=== PATIENT | female | born 1970 | race Caucasian/White ===

== ENCOUNTER 2019-05-18 06:14 | Day surgery (SDC) | payer OTHER ==
[2019-05-17 10:50] VITALS: BMI 23.3
[~2019-05-18 06:14] MED LIST: CLINDAMYCIN 900 MG in DEXTROSE 5% IN WATER 50 ML IVPB ONE; DEXAMETHASONE SOD PHOSPHATE 10 MG/ML 1 ML VIAL IV ONE; MIDAZOLAM 2 MG/2 ML VIAL IV PRN; ONDANSETRON 4 MG/2 ML VIAL IVP ONE; SCOPOLAMINE 1.5MG/72HR PATCH TRANSDERM ONE
[2019-05-18 07:24] LABS: Glucose,Whole Blood 95 mg/dL (75-99)
[2019-05-18] MEDS: LACTATED RINGERS 1,000 ML IV SCH ×2 (07:25→08:01)
[2019-05-18] MEDS ORDERED: LIDOCAINE 1% (10MG/ML) FOR IV START INTRADERMA ONE (07:27)
[2019-05-18 07:45] LABS: Albumin 4.1 g/dL (3.5-5.0); Calcium 9.4 mg/dL (8.4-10.2); Potassium 4.4 mmol/L (3.5-5.1); Total Bilirubin 0.3 mg/dL (0.2-1.3); Total Protein 6.6 g/dL (6.3-8.2)
[2019-05-18] MEDS ORDERED: HEPARIN SODIUM,PORCINE 5,000 UNIT/ML 1 ML VIAL ONE (07:55)
[2019-05-18] MEDS ORDERED: SUCCINYLCHOLINE CHLORIDE 100 MG/5 ML SYR IV ONE (07:55)
[2019-05-18] MEDS ORDERED: ePHEDrine SULFATE/0.9% NACL/PF 50 MG/5 ML SYRINGE IV ONE (07:55)
[2019-05-18] MEDS ORDERED: LIDOCAINE 1% INJ 10MG/ML (20 ML MDV) ONE (07:55)
[2019-05-18] MEDS ORDERED: WATER FOR INJECTION, STERILE 10 ML VIAL IV ONE (07:55)
[2019-05-18] MEDS ORDERED: fentaNYL (PF) 50 MCG/ML 2 ML AMP ONE (07:55)
[2019-05-18] MEDS ORDERED: PROPOFOL 10 MG/ML 20 ML VIAL IV ONE (07:55)
[2019-05-18] MEDS ORDERED: LIDOCAINE 1% INJ 10MG/ML (20 ML MDV) SQ ONE (08:28)
[2019-05-18] MEDS ORDERED: HEPARIN SODIUM IRRIGATION ONE (08:52)
[2019-05-18] MEDS ORDERED: SODIUM CHLORIDE 0.9% IRRIGATION ONE (08:52)
[2019-05-18] MEDS ORDERED: ceFAZolin 2 GM, BACITRACIN 100,000 UNIT in SODIUM CHLORIDE 0.9% 500 ML 500 ML IRRIGATION ONE (08:53)
--- NOTE | 2019-05-18 10:08 | P.OP ---
Date of Procedure: 05/18/19 Preoperative Diagnosis: Chronic kidney disease Postoperative Diagnosis: Chronic kidney disease Procedure(s) Performed: Left upper extremity radiocephalic Roxanne fistula Anesthesia: [place] Surgeon: Lico Tran Estimated Blood Loss (ml): 20 Condition: stable Disposition: PACU Indications for Procedure: 49-year-old female with chronic kidney disease in need of hemodialysis presents to the office for creation of left upper extremity chair venous fistula. Description of Procedure: After written informed consent was obtained the patient all risks benefits and competitions were described patient is brought to the operative suite and laid in a supine position with the [ ] arm outstretched on an armboard. The area of the arm was then prepped and draped in usual sterile fashion after appropriate anesthetic was performed per the anesthesiologist. A timeout was performed in n ormal fashion antibiotics were administered prior to incision. A vertical incision was then created just proximal to the wrist and dissection was carried down to the cephalic vein and this was dissected free in a circumferential manner. Proximal and distal control was obtained with vessel loops. Attention was then placed to the artery and the radial artery was then dissected free in a circumferential manner and controlled with vessel loops for the proximal and distal aspect. Patient was then administered heparin. The vein was then ligated at the distal aspect and brought over to the radial artery. Utilizing noon clamps proximal distal control was obtained of the radial artery and arteriotomy was created with 11 blade scalpel and extended with Pott Lmeos scissors. The vein was then spatulated and serial was performed of the vein. Anastomosis was then performed with 7-0 Prolene suture in a running fashion. Control was then released revealing good pulsatile blood flow within the vein with a good palpable thrill noted. Hemostasis was then assured Incisions were then closed in a multilayer fashion. Skin was cleansed and dressings were placed. The patient tolerated the procedure well and was sent to PACU for recovery. Plan - Discharge Summary Discharge Rx Participant: Yes New Discharge Prescriptions: No Action clonazePAM [KlonoPIN] 0.5 mg PO TID PRN PRN Reason: Anxiety Atorvastatin [Lipitor] 20 mg PO HS Amitriptyline HCl 10 mg PO HS Sodium Bicarbonate 650 mg PO TID Folic Acid-Vit B Complex-Vit C [Nephrocaps] 1 mg PO DAILY predniSONE 30 mg PO BID hydrALAZINE HCL [Apresoline] 25 mg PO BID Furosemide [Lasix] 80 mg PO BID Metoprolol Tartrate [Lopressor] 50 mg PO BID Discharge Medication List Amitriptyline HCl 10 mg PO HS 05/17/19 [History] Atorvastatin [Lipitor] 20 mg PO HS 05/17/19 [History] Folic Acid-Vit B Complex-Vit C [Nephrocaps] 1 mg PO DAILY 05/17/19 [History] Furosemide [Lasix] 80 mg PO BID 05/17/19 [History] Metoprolol Tartrate [Lopressor] 50 mg PO BID 05/17/19 [History] Sodium Bicarbonate 650 mg PO TID 05/17/19 [History] clonazePAM [KlonoPIN] 0.5 mg PO TID PRN 05/17/19 [History] hydrALAZINE HCL [Apresoline] 25 mg PO BID 05/17/19 [History] predniSONE 30 mg PO BID 05/17/19 [History] Follow up Appointment(s)/Referral(s): Lico Tran DO [STAFF PHYSICIAN] - 2 Weeks Activity/Diet/Wound Care/Special Instructions: no lifting greater than 15 lbs with left arm. Ok to squeeze ball 10x per hour while awake. Ok to drive 24-48 hours.
[2019-05-18 10:19] VITALS: TEMP 97.1
[2019-05-18] MEDS: HYDROmorphone 0.5 MG/0.5 ML SYRINGE IVP PRN ×2 (10:26→10:32)
[2019-05-18] MEDS ORDERED: FLUID CONTINUATION IV ONE (11:15)
[2019-05-18 11:17] VITALS: RESP 16
[2019-05-18] MEDS ORDERED: HYDROmorphone 0.5 MG/0.5 ML SYRINGE IVP ONE (11:43)
[2019-05-18 13:08] VITALS: BP 127/69; PULSE 71
--- NOTE | 2019-05-18 15:38 | P.ANPRN ---
Procedure Note - Anesthesia - Nerve Block Performed Left Supraclavicular Single Time Out Performed: Yes ([id number]) Date of Procedure: 05/18/19 Procedure Start Time: 07:46 Procedure Stop Time: 07:54 Location of Patient: PreOp Indication: Acute Post-Operative Pain, Requested by Surgeon Specifically requested for management of pain by : Lico Tran Sedation Type: Sedate with meaningful contact maintained Preparation: Sterile Prep Position: Supine Catheter: None Needle Types: Pajunk Needle Gauge: 21 Ultrasound used to visualize needle placement: Yes Ultrasound used to observe medication spread: Yes Injectate: Other (see comment) (Lidocaine 2% with epi [id number] 15cc and Ropi 0.5% 15cc) Blood Aspirated: No Pain Paresthesia on Injection Noted: No Resistance on Injection: Normal Image Stored and Saved: Yes Events: Uneventful and Well Tolerated
== END 2019-05-18 13:15 | disposition home or self-care (01) ==
LOC: OR 06:14
PROVIDERS: ATTEND Surgery
DX: I13.2 Hypertensive heart and chronic kidney disease with heart failure and with stage 5 chronic kidney disease, or end stage renal disease (principal); N18.6 End stage renal disease; I50.9 Heart failure, unspecified; Z99.2 Dependence on renal dialysis; E78.5 Hyperlipidemia, unspecified; Z79.52 Long term (current) use of systemic steroids; Z79.899 Other long term (current) drug therapy; Z87.891 Personal history of nicotine dependence; M32.9 Systemic lupus erythematosus, unspecified; Z98.890 Other specified postprocedural states; Z80.9 Family history of malignant neoplasm, unspecified; Z92.21 Personal history of antineoplastic chemotherapy; J44.9 Chronic obstructive pulmonary disease, unspecified; G43.909 Migraine, unspecified, not intractable, without status migrainosus; Z88.6 Allergy status to analgesic agent; Z88.0 Allergy status to penicillin; Z88.2 Allergy status to sulfonamides; Z91.048 Other nonmedicinal substance allergy status
CPT/HCPCS: 64415; 76942; 80053; 36821; J2250; J1644 ×2; J0690; J2405; J2001; J3010; J0330; J2704; J1170; 64999

== ENCOUNTER 2019-07-20 09:04 | Day surgery (SDC) | payer MEDICARE, OTHER ==
[2019-07-19 13:17] VITALS: BMI 24.1
[~2019-07-20 09:04] MED LIST changes: +HYDROmorphone 0.5 MG/0.5 ML SYRINGE IVP PRN; +LACTATED RINGERS 1,000 ML IV SCH; +LIDOCAINE 1% (10MG/ML) FOR IV START INTRADERMA PRN; -SCOPOLAMINE 1.5MG/72HR PATCH TRANSDERM ONE
[2019-07-20] MEDS ORDERED: fentaNYL (PF) 50 MCG/ML 2 ML AMP IV ONE (09:34)
[2019-07-20 09:45] LABS: Glucose,Whole Blood 105 mg/dL (75-99)
[2019-07-20] MEDS ORDERED: SCOPOLAMINE 1.5MG/72HR PATCH TRANSDERM ONE (09:48)
[2019-07-20 09:52] VITALS: RESP 16; TEMP 97
[2019-07-20 10:01] LABS: Basophils % (A) 0 %; Eosinophils # (A) 0.1 k/uL (0-0.7); Eosinophils % (A) 1 %; HCT 29.3 % (34.0-46.0); HGB 9.8 gm/dL (11.4-16.0); Lymphocytes # (A) 0.5 k/uL (1.0-4.8); Lymphocytes % (A) 6 %; MCH 32.5 pg (25.0-35.0); MCHC 33.5 g/dL (31.0-37.0); MCV 97.2 fL (80.0-100.0); Mean Platelet Volume 7.2; Monocytes # (A) 0.5 k/uL (0-1.0); Monocytes % (A) 6 %; Neutrophils % (A) 86 %; RBC 3.02 m/uL (3.80-5.40); RDW 14.5 % (11.5-15.5); WBC 8.2 k/uL (3.8-10.6)
[2019-07-20 10:07] LABS: Calcium 9.3 mg/dL (8.4-10.2); Potassium 4.3 mmol/L (3.5-5.1)
[2019-07-20] MEDS ORDERED: MIDAZOLAM 2 MG/2 ML VIAL ONE (10:09)
[2019-07-20] MEDS ORDERED: fentaNYL (PF) 50 MCG/ML 2 ML AMP ONE (10:09)
[2019-07-20] MEDS ORDERED: PROTAMINE SULFATE 10 MG/ML 5 ML VIAL IV ONE (10:09)
[2019-07-20] MEDS ORDERED: HEPARIN SODIUM,PORCINE 5,000 UNIT/ML 1 ML VIAL ONE (10:09)
[2019-07-20] MEDS ORDERED: PROPOFOL 10 MG/ML 20 ML VIAL IV ONE (10:09)
[2019-07-20] MEDS ORDERED: ROPIVACAINE 5 MG/ML 30 ML VIAL ONE (10:09)
[2019-07-20 10:13] LABS: Platelet Count 87 k/uL (150-450)
[2019-07-20] MEDS ORDERED: SODIUM CHLORIDE 0.9% 500 ML 500 ML with HEPARIN SODIUM,PORCINE 2,000 UNIT IV ONE ×2 (10:15)
[2019-07-20] MEDS ORDERED: ceFAZolin 2 GM in SODIUM CHLORIDE 0.9% 500 ML 500 ML IRRIGATION ONE (10:15)
[2019-07-20] MEDS ORDERED: LIDOCAINE 1% INJ 10MG/ML (20 ML MDV) SQ ONE ×2 (10:33)
[2019-07-20] MEDS ORDERED: GELATIN SPONGE,ABSORB (SMALL) 1 EACH SPONGE TOPICAL ONE ×2 (11:29)
[2019-07-20] MEDS ORDERED: THROMBIN (BOVINE) 5,000 UNIT VIAL TOPICAL ONE ×2 (11:30→12:10)
[2019-07-20] MEDS ORDERED: GELATIN SPONGE,ABSORB (LARGE) 1 EACH SPONGE TOPICAL ONE (12:10)
[2019-07-20] MEDS ORDERED: DESMOPRESSIN ACETATE 13 MCG in SODIUM CHLORIDE 0.9% 50 ML IVPB ONE (12:30)
[2019-07-20 12:56] VITALS: PULSE 88
--- NOTE | 2019-07-20 12:56 | P.OP ---
Date of Procedure: 07/20/19 Preoperative Diagnosis: End-stage renal disease on hemodialysis Postoperative Diagnosis: End-stage renal disease on hemodialysis Procedure(s) Performed: Left upper extremity loop AV graft Implants: Roland propatent 4-7 mm graft Anesthesia: MAC, regional Surgeon: Lico Tran Estimated Blood Loss (ml): 100 Pathology: none sent Condition: stable Disposition: PACU Indications for Procedure: 49-year-old female with history of end-stage renal disease on hemodialysis he right-sided tunneled Bahman catheter with history of previous left upper extremity Roxanne fistula creation presents to the hospital for loop AV graft creation on the left upper extremity secondary to previous Roxanne fistula occlusion. Patient has had no issues with her Bahman catheter and has been getting hemodialysis without complications. She does have low platelet count previously and recheck prior to surgery demonstrated platelets greater than 80. She underwent ultrasound of the left upper extremity to determine if a fistula versus graft should be performed. Due to her age was determined that a loop graft in the forearm would be best suited allowing more options in the future. She presents today for loop graft creation. Description of Procedure: After written informed consent was obtained the patient all risks benefits and competitions were described patient is brought to the operative suite and laid in a supine position with the left arm outstretched on an armboard. The area of the arm was then prepped and draped in usual sterile fashion after appropriate anesthetic was performed per the anesthesiologist. A timeout was performed in normal fashion antibiotics were administered prior to incision. A transverse incision was then created just distal to the elbow and dissection was carried down to the antecubital vein and this was dissected free in a circumferential manner. Proximal and distal control was obtained with vessel loops. Attention was then placed to the artery and the brachial artery was then dissected free in a circumferential manner and controlled with vessel loops for the proximal and distal aspect. A tunnel was then created in a loop fashion with a counterincision made in the forearm and a 4-7 mm Roland propatent graft was tunneled in a loop fashion. Patient was then administered heparin. Arterial anastomosis was then performed after arteriotomy was created in the brachial artery and extended with Pott Lemos scissors. We 4 mm aspect of the graft was then spatulated in normal fashion and anastomosis was created with 6-0 Prolene suture in a running fashion. Control was then released into the graft revealing good pulsatile blood flow. Distal control of the artery was then released. Assessment of the radial artery demonstrated good pulse. The anastomosis was then performed. Venotomy was created with 11 blade scalpel and extended with Pott Lemos scissors. A 7 mm aspect of the graft was then spatulated in normal fashion and anastomosis was created with 6-0 Prolene suture in a running fashion. Prior to last sutures being placed control was released revealing good backbleeding from the vein. The graft was flushed with heparin saline. Control was then released revealing good pulsatile blood flow within the vein with a good palpable thrill noted. Hemostasis was then assured with Gelfoam, thrombin, Surgicel. Incisions were then closed in a multilayer fashion. Skin was cleansed and dressings were placed. The patient tolerated the procedure well and was sent to PACU for recovery. Plan - Discharge Summary Discharge Rx Participant: Yes New Discharge Prescriptions: No Action clonazePAM [KlonoPIN] 0.5 mg PO TID PRN PRN Reason: Anxiety Atorvastatin [Lipitor] 20 mg PO HS RX: Sodium Bicarbonate 650 mg PO TID Folic Acid-Vit B Complex-Vit C [Nephrocaps] 0.8 mg PO MOWEFR RX: predniSONE 30 mg PO DAILY hydrALAZINE HCL [Apresoline] 50 mg PO BID Furosemide [Lasix] 80 mg PO BID Metoprolol Tartrate [Lopressor] 50 mg PO BID amLODIPine [Norvasc] 5 mg PO DAILY levOCARNitine [Levocarnitine] 330 mg PO DAILY Discharge Medication List Atorvastatin [Lipitor] 20 mg PO HS 05/17/19 [History] Folic Acid-Vit B Complex-Vit C [Nephrocaps] 0.8 mg PO MOWEFR 05/17/19 [History] Furosemide [Lasix] 80 mg PO BID 05/17/19 [History] Metoprolol Tartrate [Lopressor] 50 mg PO BID 05/17/19 [History] Sodium Bicarbonate 650 mg PO TID 05/17/19 [History] clonazePAM [KlonoPIN] 0.5 mg PO TID PRN 05/17/19 [History] hydrALAZINE HCL [Apresoline] 50 mg PO BID 05/17/19 [History] predniSONE 30 mg PO DAILY 05/17/19 [History] amLODIPine [Norvasc] 5 mg PO DAILY 07/19/19 [History] levOCARNitine [Levocarnitine] 330 mg PO DAILY 07/19/19 [History] HYDROcodone/APAP 5-325MG [[place] 5-325] 1 tab PO Q4HR 07/20/19 [History] Follow up Appointment(s)/Referral(s): Lico Tran DO [STAFF PHYSICIAN] - 2 Weeks Discharge Disposition: HOME SELF-CARE
[2019-07-20 13:04] VITALS: BP 159/89
[2019-07-20] MEDS ORDERED: HYDROcodone/APAP 5-325MG 1 EACH TAB PO ONE (13:10)
[2019-07-20] MEDS ORDERED: HYDROmorphone 1 MG/ML 1 ML SYRINGE IVP ONE (13:34)
--- NOTE | 2019-07-20 18:15 | P.ANPRN ---
Procedure Note - Anesthesia - Nerve Block Performed Left Supraclavicular Single Time Out Performed: Yes Date of Procedure: 07/20/19 Procedure Start Time: 09:32 Procedure Stop Time: :43 Location of Patient: PreOp Indication: Acute Post-Operative Pain, Requested by Surgeon Specifically requested for management of pain by DrGanga: Lico Tran Sedation Type: Sedate with meaningful contact maintained Preparation: Sterile Prep Position: Supine Catheter: None Needle Types: Pajunk Needle Gauge: 21 Ultrasound used to visualize needle placement: Yes Ultrasound used to observe medication spread: Yes Injectate: 0.5% Ropivacaine (see comment for volume) Adjunct: Epinephrine (see comment for dilution ratio) Blood Aspirated: No Pain Paresthesia on Injection Noted: No Resistance on Injection: Normal Image Stored and Saved: Yes Events: Uneventful and Well Tolerated (0.5% ropivacaine 10cc 2% lidocaine with epi 5cc)
== END 2019-07-20 14:05 | disposition home or self-care (01) ==
LOC: OR 09:04
PROVIDERS: ATTEND Surgery
DX: I12.0 Hypertensive chronic kidney disease with stage 5 chronic kidney disease or end stage renal disease (principal); N18.6 End stage renal disease; M32.9 Systemic lupus erythematosus, unspecified; E78.5 Hyperlipidemia, unspecified; Z11.59 Encounter for screening for other viral diseases; F41.9 Anxiety disorder, unspecified; D64.9 Anemia, unspecified; Z79.52 Long term (current) use of systemic steroids; Z79.899 Other long term (current) drug therapy; Z87.891 Personal history of nicotine dependence; Z98.891 History of uterine scar from previous surgery; Z88.0 Allergy status to penicillin; Z88.2 Allergy status to sulfonamides; Z88.6 Allergy status to analgesic agent; Z91.041 Radiographic dye allergy status
CPT/HCPCS: 36830; 64415; 76942; 80048; 85025; 87635; L8670; J2250; J2720; J1644; J1100; J0690; J2405; J2001; J3010; J1170; J2795; J2704; 64418

== ENCOUNTER → 2019-12-06 | Outpatient (CLI) | payer MEDICARE, OTHER ==
[2019-12-06 15:22] LABS: Basophils % (A) 1 %; Eosinophils # (A) 0.5 k/uL (0-0.7); Eosinophils % (A) 15 %; HCT 32.4 % (34.0-46.0); HGB 10.4 gm/dL (11.4-16.0); Lymphocytes # (A) 0.5 k/uL (1.0-4.8); Lymphocytes % (A) 15 %; MCH 32.7 pg (25.0-35.0); MCHC 32.2 g/dL (31.0-37.0); MCV 101.6 fL (80.0-100.0); Macrocytosis Slight; Mean Platelet Volume 6.7; Monocytes # (A) 0.2 k/uL (0-1.0); Monocytes % (A) 7 %; Neutrophils % (A) 61 %; Platelet Count 212 k/uL (150-450); RBC 3.19 m/uL (3.80-5.40); RDW 15.4 % (11.5-15.5); WBC 3.3 k/uL (3.8-10.6)
[2019-12-06 15:23] LABS: Potassium 3.8 mmol/L (3.5-5.1)
== END | disposition home or self-care (01) ==
LOC: LABPAT 14:27
PROVIDERS: ATTEND Surgery
DX: Z01.818 Encounter for other preprocedural examination (principal); N18.6 End stage renal disease
CPT/HCPCS: 36415; 80051; 82565; 84520; 85025

== ENCOUNTER → 2019-12-07 | Day surgery (SDC) | payer MEDICARE, OTHER ==
[2019-12-06 11:45] VITALS: BMI 20.2
[~2019-12-07] MED LIST changes: -CLINDAMYCIN 900 MG in DEXTROSE 5% IN WATER 50 ML IVPB ONE; -DEXAMETHASONE SOD PHOSPHATE 10 MG/ML 1 ML VIAL IV ONE; -HYDROmorphone 0.5 MG/0.5 ML SYRINGE IVP PRN; +IOPAMIDOL-250 50ML BTL INTRAARTER ONE; -LACTATED RINGERS 1,000 ML IV SCH; -LIDOCAINE 1% (10MG/ML) FOR IV START INTRADERMA PRN; +LIDOCAINE 1% INJ 10MG/ML (20 ML MDV) SQ ONE; +MIDAZOLAM 2 MG/2 ML VIAL IV ONE; -MIDAZOLAM 2 MG/2 ML VIAL IV PRN; -ONDANSETRON 4 MG/2 ML VIAL IVP ONE; +SODIUM CHLORIDE 0.9% 1,000 ML IV ONE; +fentaNYL (PF) 50 MCG/ML 2 ML AMP IV ONE; +methylPREDNISolone SOD SUCCI 125 MG/2 ML VIAL IV STA; +methylPREDNISolone SOD SUCCI 125 MG/2 ML VIAL ONE
[2019-12-07 08:31] VITALS: TEMP 97.4
[2019-12-07 09:23] VITALS: RESP 16
--- NOTE | 2019-12-07 09:31 | P.OP ---
Date of Procedure: 12/07/19 Preoperative Diagnosis: Left upper extremity dysfunctional arteriovenous graft Postoperative Diagnosis: Same, No evidence of inflow or outflow stenosis or extravasation Procedure(s) Performed: Left upper extremity fistulagram Anesthesia: local (with conscious sedation x 17 mins) Surgeon: Lico Tran Estimated Blood Loss (ml): 5 Pathology: none sent Condition: stable Disposition: same day Indications for Procedure: 49 year old female with history of ESRD on hemodialysis via left upper extremity loop graft presents secondary to complaints of pain and swelling with dialysis on the inner curve of the graft. She states she also bleeds a lot after dialysis and takes extended time for hemostasis. Description of Procedure: The patient was brought to the cath lab nurse and laid in a supine position with left arm on arm board. Local anesthetic was infused overlying the graft and utilizing a micro access needle the graft was accessed. A 4 german sheath was then placed and fistulagram was obtained demonstrating no evidence of stenosis of the outflow or inflow. A central venous venogram was obtained without evidence of stenosis. All catheters and wires were removed and pressure was held for hemostasis. The area was then cleansed and dressings were placed. Plan - Discharge Summary Discharge Rx Participant: No New Discharge Prescriptions: No Action clonazePAM [KlonoPIN] 0.5 mg PO TID PRN PRN Reason: Anxiety Atorvastatin [Lipitor] 20 mg PO QAM Furosemide [Lasix] 40 mg PO DAILY Sodium Bicarb Tab 850 mg PO BID amLODIPine [Norvasc] 10 mg PO DAILY cloNIDine HCL [Catapres] 0.1 mg PO TID Folic Acid-Vit B Complex-Vit C [Nephrocaps] 1 mg PO SUTUTHSA hydrALAZINE HCL [Apresoline] 100 mg PO TID Labetalol HCl 100 mg PO BID rOPINIRole HCL [Requip] 0.25 mg PO BID Sevelamer [Renvela] 800 mg PO DIRECTED PRN PRN Reason: meals or snacks Discharge Medication List Atorvastatin [Lipitor] 20 mg PO QAM 05/17/19 [History] Furosemide [Lasix] 40 mg PO DAILY 05/17/19 [History] clonazePAM [KlonoPIN] 0.5 mg PO TID PRN 05/17/19 [History] Folic Acid-Vit B Complex-Vit C [Nephrocaps] 1 mg PO SUTUTHSA 12/06/19 [History] Labetalol HCl 100 mg PO BID 12/06/19 [History] Sevelamer [Renvela] 800 mg PO DIRECTED PRN 12/06/19 [History] Sodium Bicarb Tab 850 mg PO BID 12/06/19 [History] amLODIPine [Norvasc] 10 mg PO DAILY 12/06/19 [History] cloNIDine HCL [Catapres] 0.1 mg PO TID 12/06/19 [History] hydrALAZINE HCL [Apresoline] 100 mg PO TID 12/06/19 [History] rOPINIRole HCL [Requip] 0.25 mg PO BID 12/06/19 [History]
[2019-12-07 10:26] VITALS: BP 140/69; PULSE 90
--- NOTE | 2019-12-07 10:34 | IR ---
EXAMINATION TYPE: IR angio upper extremity LT DATE OF EXAM: 12/07/2019 COMPARISON: NONE HISTORY: Fluoroscopy time. Fluoroscopy was provided to the referring clinician.
== END ==
LOC: CATHCVL 07:54
PROVIDERS: ATTEND Surgery
DX: T82.848A Pain due to vascular prosthetic devices, implants and grafts, initial encounter (principal); T82.7XXA Infection and inflammatory reaction due to other cardiac and vascular devices, implants and grafts, initial encounter; Z79.52 Long term (current) use of systemic steroids; Z79.899 Other long term (current) drug therapy; I12.0 Hypertensive chronic kidney disease with stage 5 chronic kidney disease or end stage renal disease; N18.6 End stage renal disease; Z99.2 Dependence on renal dialysis; M32.9 Systemic lupus erythematosus, unspecified; Z80.9 Family history of malignant neoplasm, unspecified; Z87.891 Personal history of nicotine dependence
CPT/HCPCS: 76080; C1769 ×2; J2250; J2930; J2001; J3010; Q9966

== ENCOUNTER 2020-05-18 11:06 | Day surgery (SDC) | payer MEDICARE, OTHER ==
[2020-05-16 15:31] VITALS: BMI 19.9
[~2020-05-18 11:06] MED LIST changes: +ACETAMINOPHEN TAB 500 MG TAB PO PRN; +DEXAMETHASONE SOD PHOSPHATE 4 MG/ML 1 ML VIAL IV ONE; +HEPARIN SODIUM,PORCINE 5,000 UNIT/ML 1 ML VIAL SQ PRN; +HYDROmorphone 0.5 MG/0.5 ML SYRINGE IVP PRN; -IOPAMIDOL-250 50ML BTL INTRAARTER ONE; +LACTATED RINGERS 1,000 ML IV SCH; -LIDOCAINE 1% INJ 10MG/ML (20 ML MDV) SQ ONE; -MIDAZOLAM 2 MG/2 ML VIAL IV ONE; +ONDANSETRON 4 MG/2 ML VIAL IVP ONE; -SODIUM CHLORIDE 0.9% 1,000 ML IV ONE; -fentaNYL (PF) 50 MCG/ML 2 ML AMP IV ONE; -methylPREDNISolone SOD SUCCI 125 MG/2 ML VIAL IV STA; -methylPREDNISolone SOD SUCCI 125 MG/2 ML VIAL ONE
[2020-05-18 11:46] VITALS: RESP 16
[2020-05-18] MEDS ORDERED: LIDOCAINE 1% (10MG/ML) FOR IV START INTRADERMA ONE (11:53)
[2020-05-18 12:21] LABS: Basophils % (A) 1 %; Eosinophils # (A) 0.2 k/uL (0-0.7); Eosinophils % (A) 4 %; HCT 36.3 % (34.0-46.0); HGB 12.4 gm/dL (11.4-16.0); Lymphocytes # (A) 0.7 k/uL (1.0-4.8); Lymphocytes % (A) 17 %; MCHC 34.3 g/dL (31.0-37.0); MCV 102.2 fL (80.0-100.0); Macrocytosis Slight; Mean Platelet Volume 7.1; Monocytes # (A) 0.2 k/uL (0-1.0); Monocytes % (A) 6 %; Neutrophils % (A) 71 %; Platelet Count 187 k/uL (150-450); RBC 3.55 m/uL (3.80-5.40); WBC 4.3 k/uL (3.8-10.6)
[2020-05-18] MEDS ORDERED: LIDOCAINE 1% INJ 10MG/ML (20 ML MDV) ONE (12:29)
[2020-05-18] MEDS ORDERED: PHENYLEPHRINE-0.9% NACL SYG 1,000 MCG/10 ML SYRINGE ONE (12:29)
[2020-05-18] MEDS ORDERED: PROPOFOL 10 MG/ML 20 ML VIAL IV ONE (12:29)
[2020-05-18] MEDS ORDERED: fentaNYL (PF) 50 MCG/ML 2 ML AMP ONE (12:29)
[2020-05-18 12:31] LABS: Calcium 9.6 mg/dL (8.4-10.2); Potassium 5.2 mmol/L (3.5-5.1)
[2020-05-18] MEDS ORDERED: MIDAZOLAM 2 MG/2 ML VIAL IVP ONE ×2 (12:31→12:33)
[2020-05-18] MEDS ORDERED: FAMOTIDINE 20 MG/2 ML VIAL IV ONE (12:31)
[2020-05-18] MEDS ORDERED: SODIUM CHLORIDE 0.9% 50 ML with CLINDAMYCIN 600 MG IV ONE ×2 (12:35)
[2020-05-18] MEDS ORDERED: MINERAL OIL 1 APPLIC/ML OIL TOPICAL ONE (12:40)
[2020-05-18] MEDS ORDERED: BUPIVACAINE (PF) 0.25% 30 ML VIAL SQ ONE ×2 (12:40)
[2020-05-18] MEDS ORDERED: NALOXONE 0.4 MG/ML 1 ML VIAL IV PRN (13:51)
[2020-05-18] MEDS ORDERED: traMADol 50 MG TAB PO PRN (13:51)
--- NOTE | 2020-05-18 13:54 | P.OP ---
Date of Procedure: 05/18/20 Procedure(s) Performed: PREOPERATIVE DIAGNOSIS: Renal failure POSTOPERATIVE DIAGNOSIS: Same PROCEDURE: Peritoneal dialysis catheter insertion SURGEON: Mily EBL: Minimal ANESTHESIA: Sedation plus local COMPLICATIONS: None OPERATIVE PROCEDURE: The patient was placed in the operative table in the supine position. His abdomen was prepped and draped in usual sterile fashion. A small vertical incision was made in the left periumbilical location. Dissection down through the subcutaneous tissues took place using electrocautery. The anterior rectus was divided vertically using the scalpel. The rectus was bluntly. The posterior rectus was visualized. An 0 Vicryl pursestring was placed. A small opening in the posterior rectus fascia and peritoneum took place using a Metzenbaum scissors. There were no adhesions to the suture that was placed. The pigtail catheter was advanced into the pelvis over a stylette. No resistance was met. The inner cuff was secured to the fascia using the 0 Vicryl pursestring that was placed. The catheter was tunneled to an exit site in the left lateral lower quadrant. The catheter was connected to the 1 L bag of saline and approximated 800 mL of saline was easily introduced into the peritoneal cavity. The fluid was then allowed to evacuate. The majority of the fluid was returned. The anterior rectus fascia was then reapproximated using a running 0 Vicryl stitch. The subcutaneous tissues reprepped using 3-0 Vicryl sutures and the skin using 4-0 Monocryl sutures. The outpatient dialysis adapter was applied to the end of the catheter. A sterile dressings then applied after skin glue was placed over the incision. DISPOSITION: Stable to recovery room
[2020-05-18 13:55] VITALS: TEMP 97.6
[2020-05-18 15:42] VITALS: BP 112/74; PULSE 74
== END 2020-05-18 15:42 | disposition home or self-care (01) ==
LOC: OR 11:06
PROVIDERS: ATTEND Surgery
DX: N19 Unspecified kidney failure (principal); I10 Essential (primary) hypertension; E78.00 Pure hypercholesterolemia, unspecified; Z79.899 Other long term (current) drug therapy; Z88.6 Allergy status to analgesic agent; Z88.0 Allergy status to penicillin; Z88.2 Allergy status to sulfonamides; Z91.041 Radiographic dye allergy status; Z83.3 Family history of diabetes mellitus; Z80.9 Family history of malignant neoplasm, unspecified; Z82.49 Family history of ischemic heart disease and other diseases of the circulatory system
CPT/HCPCS: 49418; 80048; 85025; C1752; J2250; J1644; J1100; J2405; J2001; J3010; J2370; J2704; J1170

== ENCOUNTER 2020-08-11 07:48 | Day surgery (SDC) | payer MEDICARE, OTHER ==
[2020-08-10 08:51] VITALS: BMI 20.4
[~2020-08-11 07:48] MED LIST changes: +CLINDAMYCIN 900 MG in DEXTROSE 5% IN WATER 50 ML IVPB PRN; -DEXAMETHASONE SOD PHOSPHATE 4 MG/ML 1 ML VIAL IV ONE; -HEPARIN SODIUM,PORCINE 5,000 UNIT/ML 1 ML VIAL SQ PRN; +HEPARIN SODIUM,PORCINE/PF 5,000 UNIT/0.5 ML SYRINGE SQ PRN; -HYDROmorphone 0.5 MG/0.5 ML SYRINGE IVP PRN; -LACTATED RINGERS 1,000 ML IV SCH; -ONDANSETRON 4 MG/2 ML VIAL IVP ONE
[2020-08-11] MEDS ORDERED: ONDANSETRON 4 MG/2 ML VIAL IVP ONE (07:53)
[2020-08-11] MEDS ORDERED: DEXAMETHASONE SOD PHOSPHATE 4 MG/ML 1 ML VIAL IV ONE (07:53)
[2020-08-11] MEDS ORDERED: HYDROmorphone 0.5 MG/0.5 ML SYRINGE IVP PRN (07:53)
[2020-08-11] MEDS ORDERED: SCOPOLAMINE 1.5MG/72HR PATCH TRANSDERM ONE (07:53)
[2020-08-11] MEDS ORDERED: MIDAZOLAM 2 MG/2 ML VIAL IV PRN (07:53)
[2020-08-11] MEDS ORDERED: LACTATED RINGERS 1,000 ML IV SCH (07:53)
[2020-08-11] MEDS ORDERED: LIDOCAINE 1% (10MG/ML) FOR IV START INTRADERMA ONE (08:30)
[2020-08-11] MEDS ORDERED: SODIUM CHLORIDE 0.9% 1,000 ML IV ONE (08:32)
--- NOTE | 2020-08-11 08:43 | P.GSHP ---
History of Present Illness H&P Date: 08/11/20 Chief Complaint: Renal failure Patient here today for peritoneal dialysis catheter removal. Catheter was placed in May. Catheter has been functioning appropriately however she has not been able to clear her fluids and has gradually had increased fluid retention. She was placed back on hemodialysis for that reason and she is here today for dialysis catheter removal. She has no pain at the catheter site. No peritonitis. Past Medical History Past Medical History: Asthma, Heart Failure, COPD, Dialysis, Fibromyalgia, GERD/Reflux, Hypertension, Renal Disease, Rheumatoid Arthritis (RA), Skin Disorder Additional Past Medical History / Comment(s): migraines, anemia, lupus, stage 5 renal failure, hemodialysis MOWEFR, vasculitis autoimmune disorder, glaucoma, hx ulcer, IBS, SOB with activity, restless leg, psoriasis History of Any Multi-Drug Resistant Organisms: None Reported Past Surgical History: Section Additional Past Surgical History / Comment(s): "port in chest"/removed, C/S x 3, cold knife conization, fistula left arm for hemodialysis, peritoneal dialysis catheter Past Anesthesia/Blood Transfusion Reactions: Family History of Problems w/ Anesthesia, Motion Sickness, Postoperative Nausea & Vomiting (PONV) Additional Past Anesthesia/Blood Transfusion Reaction / Comment(s): slow to wake up after last procedure, mother PONV Smoking Status: Former smoker - Past Family History Mother Family Medical History: Cancer Father Family Medical History: Cancer Medications and Allergies Home Medications Medication Instructions Recorded Confirmed Type Folic Acid-Vit B Complex-Vit C 1 mg PO SUTUTHSA 12/06/19 08/11/20 History [Nephrocaps] amLODIPine [Norvasc] 10 mg PO DAILY 12/06/19 08/11/20 History hydrALAZINE HCL [Apresoline] 100 mg PO TID 12/06/19 08/11/20 History Albuterol Inhaler [Ventolin Hfa 2 puff INHALATION BID PRN 08/10/20 08/11/20 History Inhaler] Carvedilol [Coreg] 25 mg PO BID 08/10/20 08/11/20 History Cinacalcet HCl [Sensipar] 60 mg PO DAILY 08/10/20 08/11/20 History Hydroxychloroquine Sulfate 200 mg PO BID 08/10/20 08/11/20 History [Plaquenil] Isosorbide Dinitrate 5 mg PO TID 08/10/20 08/11/20 History Sodium Bicarbonate 650 mg PO TID 08/10/20 08/11/20 History mycophenolate mofetiL [Cellcept] 500 mg PO BID 08/10/20 08/11/20 History rOPINIRole HCL [Requip] 0.25 mg PO TID 08/10/20 08/11/20 History Allergies Allergy/AdvReac Type Severity Reaction Status Date / Time Iodinated Contrast Media Allergy Severe stopped Verified 08/11/20 08:17 breathing aspirin Allergy Swelling/hi Verified 08/11/20 08:17 ves Penicillins Allergy Dyspnea Verified 08/11/20 08:17 sulfamethoxazole Allergy Dyspnea Verified 08/11/20 08:17 [From Bactrim] trimethoprim [From Bactrim] Allergy Dyspnea Verified 08/11/20 08:17 Surgical - Exam Vital Signs Temp Pulse Resp BP Pulse Ox 97.7 F 80 16 112/72 95 08/11/20 08:08 08/11/20 08:08 08/11/20 08:08 08/11/20 08:08 08/11/20 08:08 Physical exam: General: Well-developed, somewhat malnourished HEENT: Normocephalic, sclerae nonicteric Abdomen: Peritoneal catheter in place, incision clean and dry Extremities: Mild edema Neuro: Alert and oriented Assessment and Plan (1) Renal failure Narrative/Plan: Will proceed with peritoneal dialysis catheter removal at this time. Current Visit: Yes Status: Acute Code(s): N19 - UNSPECIFIED KIDNEY FAILURE SNOMED Code(s): 48246648
[2020-08-11] MEDS ORDERED: LIDOCAINE 1% INJ 10MG/ML (20 ML MDV) ONE (09:02)
[2020-08-11] MEDS ORDERED: PHENYLEPHRINE-0.9% NACL SYG 1,000 MCG/10 ML SYRINGE ONE (09:02)
[2020-08-11] MEDS ORDERED: PROPOFOL 10 MG/ML 20 ML VIAL IV ONE (09:02)
[2020-08-11] MEDS ORDERED: fentaNYL (PF) 50 MCG/ML 2 ML AMP ONE (09:02)
[2020-08-11] MEDS ORDERED: BUPIVACAIN-EPI 0.5%-1:200,000 30 ML VIAL SQ ONE ×2 (09:05)
[2020-08-11 09:12] LABS: Calcium 9.2 mg/dL (8.4-10.2)
[2020-08-11 09:51] VITALS: TEMP 97.2
[2020-08-11 12:38] VITALS: RESP 16
[2020-08-11 13:18] VITALS: BP 118/65; PULSE 75
--- NOTE | 2020-08-16 20:07 | P.OP ---
Date of Procedure: 08/16/20 Procedure(s) Performed: PREOPERATIVE DIAGNOSIS: Renal failure POSTOPERATIVE DIAGNOSIS: Same PROCEDURE: PD cath removal SURGEON: Mily EBL: 2 mL ANESTHESIA: Sedation and local COMPLICATIONS: None OPERATIVE PROCEDURE: Patient was placed in the supine position. The abdomen was prepped and draped in usual sterile fashion. The previous paramedian incision was re-incised after localizing the skin. The subcutaneous tissues were divided using electrocautery. Blunt dissection around the cuff that was present at the fascia and peritoneum took place. The cuff was fully mobilized. The catheter was removed from the perineal cavity. The outer cuff was dissected from the saphenous fascia using electrocautery. The catheter was cut on the other side of that cuff and the catheter was removed. The fascial defect was closed using a single [id number] 0 Vicryl stitch. The subcutaneous tissues were closed using 3-0 Vicryl sutures and the skin using 4-0 Monocryl sutures. Skin glue and sterile dressings were applied. DISPOSITION: Stable to recovery room
== END 2020-08-11 13:24 | disposition home or self-care (01) ==
LOC: OR 07:48
PROVIDERS: ATTEND Surgery
DX: Z49.02 Encounter for fitting and adjustment of peritoneal dialysis catheter (principal); I13.2 Hypertensive heart and chronic kidney disease with heart failure and with stage 5 chronic kidney disease, or end stage renal disease; N18.5 Chronic kidney disease, stage 5; I50.9 Heart failure, unspecified; E78.00 Pure hypercholesterolemia, unspecified; F17.200 Nicotine dependence, unspecified, uncomplicated; Z98.891 History of uterine scar from previous surgery; J45.909 Unspecified asthma, uncomplicated; J44.9 Chronic obstructive pulmonary disease, unspecified; M79.7 Fibromyalgia; K58.9 Irritable bowel syndrome, unspecified; K21.9 Gastro-esophageal reflux disease without esophagitis; M06.9 Rheumatoid arthritis, unspecified; G43.909 Migraine, unspecified, not intractable, without status migrainosus; M32.14 Glomerular disease in systemic lupus erythematosus; D89.89 Other specified disorders involving the immune mechanism, not elsewhere classified; Z98.890 Other specified postprocedural states; Z82.49 Family history of ischemic heart disease and other diseases of the circulatory system; Z83.3 Family history of diabetes mellitus; Z80.9 Family history of malignant neoplasm, unspecified; Z79.890 Hormone replacement therapy; Z79.899 Other long term (current) drug therapy; Z88.6 Allergy status to analgesic agent; Z88.0 Allergy status to penicillin; Z88.2 Allergy status to sulfonamides; Z91.041 Radiographic dye allergy status
CPT/HCPCS: 80048; 49422; J1100; J2405; J2001; J3010; J2370; J2704; J1644

== ENCOUNTER → 2020-08-29 | Day surgery (SDC) | payer MEDICARE, OTHER ==
[2020-08-25 13:09] VITALS: BMI 20.4
[~2020-08-29] MED LIST changes: -ACETAMINOPHEN TAB 500 MG TAB PO PRN; -CLINDAMYCIN 900 MG in DEXTROSE 5% IN WATER 50 ML IVPB PRN; -HEPARIN SODIUM,PORCINE/PF 5,000 UNIT/0.5 ML SYRINGE SQ PRN; +LIDOCAINE 1% INJ 10MG/ML (20 ML MDV) ONE; +SODIUM CHLORIDE 0.9% 1,000 ML IV ONE; +diphenhydrAMINE 50 MG/ML 1 ML VIAL ONE; +methylPREDNISolone SOD SUCCI 125 MG/2 ML VIAL ONE
[2020-08-29 07:11] VITALS: BP 121/73; PULSE 76; RESP 18; TEMP 97.8
== END ==
LOC: CATHCVL 06:27
PROVIDERS: ATTEND Surgery
DX: T82.848A Pain due to vascular prosthetic devices, implants and grafts, initial encounter (principal); N18.6 End stage renal disease; Z99.2 Dependence on renal dialysis; Z20.822 Contact with and (suspected) exposure to COVID-19; I51.7 Cardiomegaly; I10 Essential (primary) hypertension; M32.9 Systemic lupus erythematosus, unspecified; Z98.891 History of uterine scar from previous surgery; Z80.9 Family history of malignant neoplasm, unspecified; Z87.891 Personal history of nicotine dependence; Z79.52 Long term (current) use of systemic steroids; Z79.899 Other long term (current) drug therapy; Z53.8 Procedure and treatment not carried out for other reasons
CPT/HCPCS: 84703; 87635; C1769

== ENCOUNTER 2020-09-14 10:54 | Observation (INO) | payer MEDICARE, OTHER ==
--- NOTE | 2020-09-14 11:26 | ED ---
General Adult HPI - General Chief complaint: Shortness of Breath Stated complaint: Missed Dialysis, Sent by dr Time Seen by Provider: 09/14/20 11:15 Source: patient, RN notes reviewed, old records reviewed Mode of arrival: ambulatory Limitations: no limitations - History of Present Illness Initial comments: 50-year-old female history of end-stage renal disease presents for evaluation of dyspnea. And AV shunt malfunction in the left upper extremity. Patient has had a occlusion for the past several weeks and has had some difficulty completing hemodialysis. She last had hemodialysis on Friday. She's had increased dyspnea and lower extremity edema. - Related Data Home Medications Medication Instructions Recorded Confirmed Folic Acid-Vit B Complex-Vit C 1 mg PO SUTUTHSA 12/06/19 08/29/20 [Nephrocaps] amLODIPine [Norvasc] 10 mg PO DAILY 12/06/19 08/29/20 hydrALAZINE HCL [Apresoline] 100 mg PO TID 12/06/19 08/29/20 Albuterol Inhaler [Ventolin Hfa 2 puff INHALATION BID PRN 08/10/20 08/25/20 Inhaler] Carvedilol [Coreg] 25 mg PO BID 08/10/20 08/29/20 Cinacalcet HCl [Sensipar] 60 mg PO DAILY 08/10/20 08/29/20 Hydroxychloroquine Sulfate 200 mg PO BID 08/10/20 08/29/20 [Plaquenil] Isosorbide Dinitrate 5 mg PO TID 08/10/20 08/29/20 Sodium Bicarbonate 650 mg PO TID 08/10/20 08/29/20 mycophenolate mofetiL [Cellcept] 1,000 mg PO 1800 08/10/20 08/29/20 rOPINIRole HCL [Requip] 0.25 mg PO TID 08/10/20 08/29/20 clonazePAM [KlonoPIN] 0.25 mg PO TID PRN 08/25/20 08/29/20 Allergies Allergy/AdvReac Type Severity Reaction Status Date / Time Iodinated Contrast Media Allergy Severe stopped Verified 09/14/20 11:00 breathing aspirin Allergy Swelling/hi Verified 09/14/20 11:00 ves Penicillins Allergy Dyspnea Verified 09/14/20 11:00 sulfamethoxazole Allergy Dyspnea Verified 09/14/20 11:00 [From Bactrim] trimethoprim [From Bactrim] Allergy Dyspnea Verified 09/14/20 11:00 Review of Systems ROS Statement: Those systems with pertinent positive or pertinent negative responses have been documented in the HPI. ROS Other: All systems not noted in ROS Statement are negative. Past Medical History Past Medical History: Asthma, Heart Failure, COPD, Dialysis, Fibromyalgia, GERD/Reflux, Hypertension, Renal Disease, Rheumatoid Arthritis (RA), Skin Disorder Additional Past Medical History / Comment(s): migraines, anemia, lupus, stage 5 renal failure, hemodialysis MOWEFR, vasculitis autoimmune disorder, glaucoma, hx ulcer, IBS, SOB with activity, restless leg, psoriasis History of Any Multi-Drug Resistant Organisms: None Reported Past Surgical History: Section Additional Past Surgical History / Comment(s): "port in chest"/removed, C/S x 3, cold knife conization, fistula left arm for hemodialysis, peritoneal dialysis catheter, PERITONEAL CATHETER REMOVED Past Anesthesia/Blood Transfusion Reactions: Family History of Problems w/ Anesthesia, Motion Sickness Additional Past Anesthesia/Blood Transfusion Reaction / Comment(s): slow to wake up after last procedure, mother PONV Past Psychological History: Anxiety Smoking Status: Former smoker Past Alcohol Use History: None Reported Past Drug Use History: None Reported - Past Family History Mother Family Medical History: Cancer Father Family Medical History: Cancer General Exam Limitations: no limitations General appearance: alert, in no apparent distress Head exam: Present: atraumatic, normocephalic Eye exam: Present: normal appearance ENT exam: Present: normal exam Neck exam: Present: normal inspection. Absent: tenderness, meningismus Respiratory exam: Present: rales. Absent: respiratory distress, wheezes, rh onchi Cardiovascular Exam: Present: regular rate, normal rhythm GI/Abdominal exam: Present: soft. Absent: distended, tenderness Extremities exam: Present: pedal edema, other (Of the upper extremity, there is an AV graft with no thrill, no bruit. Distal radial pulse is intact.) Neurological exam: Present: alert, oriented X3, CN II-XII intact. Absent: motor sensory deficit Psychiatric exam: Present: normal affect, normal mood Skin exam: Present: warm, dry, intact. Absent: cyanosis, diaphoretic Course Vital Signs 09/14/20 11:00 Temperature 98.1 F Pulse Rate 93 Respiratory 18 Rate Blood Pressure 147/102 O2 Sat by Pulse 96 Oximetry Medical Decision Making - Medical Decision Making Case discussed with Dr. Estrada covering for vascular surgery will take for thrombectomy. As discussed with admitting physician. Laboratory testing pending. Disposition Clinical Impression: End stage renal disease, AV fistula occlusion Disposition: ADMITTED IP TO THIS HOSP Condition: Stable Is patient prescribed a controlled substance at d/c from ED?: No Referrals: Melina Freire MD [Primary Care Provider] - 1-2 days
[2020-09-14] MEDS ORDERED: NALOXONE 0.4 MG/ML 1 ML VIAL IV PRN (11:30)
[2020-09-14 11:49] LABS: Basophils % (A) 1 %; Eosinophils # (A) 0.2 k/uL (0-0.7); Eosinophils % (A) 4 %; HCT 27.4 % (34.0-46.0); HGB 9.6 gm/dL (11.4-16.0); Lymphocytes # (A) 0.5 k/uL (1.0-4.8); Lymphocytes % (A) 11 %; MCH 34.1 pg (25.0-35.0); MCHC 34.9 g/dL (31.0-37.0); MCV 97.9 fL (80.0-100.0); Mean Platelet Volume 7.5; Monocytes # (A) 0.2 k/uL (0-1.0); Monocytes % (A) 5 %; Neutrophils # (A) 3.5 k/uL (1.3-7.7); Neutrophils % (A) 78 %; Platelet Count 176 k/uL (150-450); RDW 15.8 % (11.5-15.5); WBC 4.5 k/uL (3.8-10.6)
[2020-09-14 12:07] LABS: Albumin 3.7 g/dL (3.5-5.0); Calcium 9.7 mg/dL (8.4-10.2); Magnesium 2.4 mg/dL (1.6-2.3); Potassium 5.3 mmol/L (3.5-5.1); Total Bilirubin 0.4 mg/dL (0.2-1.3); Total Protein 6.2 g/dL (6.3-8.2)
[2020-09-14 12:09] LABS: Partial Thromboplastin Time 27.3 sec (22.0-30.0); Prothrombin Time 11.1 sec (9.0-12.0)
--- NOTE | 2020-09-14 12:51 | P.GSCN ---
History of Present Illness Consult date: 09/14/20 Reason for Consult: Occluded AV graft Requesting physician: Federico Mott History of present illness: Patient is a 50-year-old white female who presented to the emergency department with complaints of shortness of breath and lower extremity swelling. She has a past medical history of asthma, heart failure, COPD, end-stage renal disease on dialysis, fibromyalgia and GERD. The patient gets dialysis Friday and Friday, yesterday she went to dialysis and they were unable to complete her dialysis. Last full dialysis was on Friday. Left upper extremity loop AV graft which was placed by Dr. Tran on 07/20/2019, in December 2019 Dr. Tran to the left upper extremity fistulogram for a malfunctioning AV graft. Up until yesterday it has been working well. She has a previous history of a peritoneal dialysis catheter which was removed in August of this year by Dr. Russell. She also had a history of a right IJ tunneled catheter. Vascular surgery was consulted for occlusion of the left upper extremity AV graft. The patient currently states she has having some shortness of breath, she is on 2 L O2 s aturations have been 89% to 96%. She denies any chest pain, fever, nausea, vomiting, or abdominal pain. He denies any pain to the left upper extremity or swelling. Review of Systems A 14 point review of systems was completed all pertinent positives and negatives as stated in the HPI Past Medical History Past Medical History: Asthma, Heart Failure, COPD, Dialysis, Fibromyalgia, GERD/Reflux, Hypertension, Renal Disease, Rheumatoid Arthritis (RA), Skin Disorder Additional Past Medical History / Comment(s): migraines, anemia, lupus, stage 5 renal failure, hemodialysis MOWEFR, vasculitis autoimmune disorder, glaucoma, hx ulcer, IBS, SOB with activity, restless leg, psoriasis History of Any Multi-Drug Resistant Organisms: None Reported Past Surgical History: Section Additional Past Surgical History / Comment(s): "port in chest"/removed, C/S x 3, cold knife conization, fistula left arm for hemodialysis, peritoneal dialysis catheter, PERITONEAL CATHETER REMOVED Past Anesthesia/Blood Transfusion Reactions: Family History of Problems w/ Anesthesia, Motion Sickness Additional Past Anesthesia/Blood Transfusion Reaction / Comm: slow to wake up after last procedure, mother PONV Past Psychological History: Anxiety Smoking Status: Former smoker Past Alcohol Use History: None Reported Past Drug Use History: None Reported - Past Family History Mother Family Medical History: Cancer Father Family Medical History: Cancer Medications and Allergies Home Medications Medication Instructions Recorded Confirmed Type Folic Acid-Vit B Complex-Vit C 1 mg PO SUTUTHSA 12/06/19 08/29/20 History [Nephrocaps] amLODIPine [Norvasc] 10 mg PO DAILY 12/06/19 08/29/20 History hydrALAZINE HCL [Apresoline] 100 mg PO TID 12/06/19 08/29/20 History Albuterol Inhaler [Ventolin Hfa 2 puff INHALATION BID PRN 08/10/20 08/25/20 History Inhaler] Carvedilol [Coreg] 25 mg PO BID 08/10/20 08/29/20 History Cinacalcet HCl [Sensipar] 60 mg PO DAILY 08/10/20 08/29/20 History Hydroxychloroquine Sulfate 200 mg PO BID 08/10/20 08/29/20 History [Plaquenil] Isosorbide Dinitrate 5 mg PO TID 08/10/20 08/29/20 History Sodium Bicarbonate 650 mg PO TID 08/10/20 08/29/20 History mycophenolate mofetiL [Cellcept] 1,000 mg PO 1800 08/10/20 08/29/20 History rOPINIRole HCL [Requip] 0.25 mg PO TID 08/10/20 08/29/20 History clonazePAM [KlonoPIN] 0.25 mg PO TID PRN 08/25/20 08/29/20 History Allergies Allergy/AdvReac Type Severity Reaction Status Date / Time Iodinated Contrast Media Allergy Severe stopped Verified 09/14/20 12:15 breathing aspirin Allergy Swelling/hi Verified 09/14/20 12:15 ves Penicillins Allergy Dyspnea Verified 09/14/20 12:15 sulfamethoxazole Allergy Dyspnea Verified 09/14/20 12:15 [From Bactrim] trimethoprim [From Bactrim] Allergy Dyspnea Verified 09/14/20 12:15 Surgical - Exam Vital Signs Temp Pulse Resp BP Pulse Ox 98.1 F 93 18 147/102 96 09/14/20 11:00 09/14/20 11:00 09/14/20 11:00 09/14/20 11:00 09/14/20 11:00 General appearance: The patient is alert, oriented, appears in no acute distress. HET: Head is normocephalic and atraumatic. Neck: Supple without lymphadenopathy. Trachea midline. Heart: S1 S2. Regular rate and rhythm. Lungs: Clear to auscultation, slightly diminished and lower lung field Abdomen: Soft, nontender, nondistended. Extremities: Normal skin color and turgor. Palpable bilateral radial pulses, left upper extremity with loop AV graft, no palpable thrill, no audible bruits. Neurological: No focal deficits. Alert and oriented 3. Results - Labs 09/14/20 11:39 09/14/20 11:39 Assessment and Plan Assessment: 1. Left upper extremity AV graft occlusion 2. End-stage renal disease on hemodialysis 3. History of asthma 4. History of heart failure 5. History of COPD Plan: 1. Keep nothing by mouth 2. CBC, BMP pending 3. Patient will be scheduled for left upper extremity open thrombectomy, possible fistulogram, possible tunneled dialysis catheter 4. Continue medical management per primary medicine team 5. Consult nephrology, for recommendations on hemodialysis Thank you for this consultation and allowing us take part in the plan of care of your patient during her hospital stay The impression and plan of care has been dictated as directed. Dr. Estrada I performed a history and examination of this patient, discussed the same with the dictator. I agree with the dictator's note ,documented as a scribe. Any additional findings or plans will be noted.
[2020-09-14] MEDS ORDERED: ONDANSETRON 4 MG/2 ML VIAL ONE (13:09)
[2020-09-14] MEDS ORDERED: ONDANSETRON 4 MG/2 ML VIAL IVP ONE (13:12)
[2020-09-14] MEDS ORDERED: SODIUM CHLORIDE 0.9% 1,000 ML IV ONE (13:12)
[2020-09-14] MEDS ORDERED: HEPARIN SODIUM,PORCINE 5,000 UNIT/ML 1 ML VIAL ONE (13:31)
[2020-09-14] MEDS ORDERED: MIDAZOLAM 2 MG/2 ML VIAL ONE (13:31)
[2020-09-14] MEDS ORDERED: diphenhydrAMINE 50 MG/ML 1 ML VIAL ONE (13:31)
[2020-09-14] MEDS ORDERED: methylPREDNISolone SOD SUCCI 125 MG/2 ML VIAL IV ONE (13:31)
[2020-09-14] MEDS ORDERED: fentaNYL (PF) 50 MCG/ML 2 ML AMP ONE (13:31)
[2020-09-14] MEDS ORDERED: LIDOCAINE 2% INJ 20 MG/ML SQ ONE ×2 (13:54)
[2020-09-14] MEDS ORDERED: IOPAMIDOL-370 50ML BTL INJ ONE ×3 (14:14)
[2020-09-14] MEDS ORDERED: IOPAMIDOL-250 100ML BTL IV ONE (15:00)
--- NOTE | 2020-09-14 15:31 | P.OP ---
Date of Procedure: 09/14/20 Description of Procedure: Preoperative diagnosis: [End-stage renal disease, thrombosed left upper extremity loop forearm graft] Postoperative diagnosis: Same Procedure: [Open thrombectomy left upper extremity loop forearm graft, fistulogram, percutaneous transluminal balloon angioplasty basilic vein outflow tract] Surgeon: Millicent Estrada D.O. EBL: [50 mL] IV fluids: [See records] Urine output: [Not measured] Drains: [None] Complications: [None immediately apparent] Condition: [Stable to recovery] Operative indication and findings: [Patient is a [age] female who previously had a left upper extremity loop forearm graft placed into thousand 20. She has had 2 incidences of needing fissure grams but no intervention was performed. She most recently was was undergoing a cystogram did not get the adequate and appropriate contrast preparation therefore was canceled and now she presents with a thrombosed loop forearm graft] Procedure in detail: [Patient was taken to the operative suite and placed in supine position. The left upper extremity is prepped and draped in usual sterile fashion. A preprocedure timeout was performed, all parties were in agreement. At the apex of the loop graft lidocaine was infiltrated. An incision was made and carried down to the level of the graft. The graft was encircled proximally and distally. The graftotomy was created with a an 11 blade and enlarged with the Adams scissors. The Ian balloons were passed in the outflow tract direction with return of significant amount of thrombus. There is minimal return of venous blood. An angiogram was performed of this showing severe stenosis of the area of the anastomosis with visualization of the basilic vein and very limited visualization of the cephalic vein location. That point the inflow was treated with Ian balloon thrombectomy was performed returning pulsatile blood after treatment and thrombus extraction. Heparin saline was injected proximal and distally. The graftotomy was closed. A separate puncture site was utilized through the graft and a 4-Moldovan sheath was placed. A repeat angiogram was performed showing the same area of severe narrowing crossing the joint. Catheters and wires were used across this and confirmed in place beyond the anastomosis. A balloon was then utilized, 6 x 40 and insufflated through the level of the anastomosis and narrowing stenosis. There was some degree of waste was significantly improved however it did remain narrowed. At that point again the balloon was insufflated to a higher burst pressure. Given the location at the anastomosis I do not believe the likelihood of significant improvement from larger size balloons would be of benefit therefore at that point there was good pulsatile flow through the graft with good augmentation. That point the sheath was removed and a [id number] suture was placed. The deep dermal tissues were reapproximated with 3-0 Vicryl. The skin was reapproximated with running 4-0 Monocryl. Skin glue was placed. The patient maintained a palpable radial pulse.]
--- NOTE | 2020-09-14 15:32 | P.PN ---
Progress Note - Text Progress Note Date: 09/14/20 Plan to attempt on dialysis via left forearm graft, if unsuccessful we'll be able to place a tunneled catheter 09/15 or 09/16 if necessary
[2020-09-14] MEDS: IPRATROPIUM-ALBUTEROL 3 ML NEB INHALATION STA ×2 (16:06→16:09)
--- NOTE | 2020-09-14 17:18 | FL ---
Fluoroscopy INDICATION: Pain FINDINGS: Fluoroscopy time: 7 minutes 19 seconds. Images obtained: 3. IMPRESSIONS: 1. Documentation of fluoroscopy.
[2020-09-14] MEDS ORDERED: ACETAMINOPHEN TAB 325 MG TAB PO PRN (17:40)
[2020-09-14] MEDS: MORPHINE SULFATE 2 MG/ML SYRINGE IVP PRN ×2 (17:49→23:14)
[2020-09-14] MEDS ORDERED: ALBUTEROL NEBULIZED 2.5 MG/3 ML INHALATION PRN (19:12)
[2020-09-14] MEDS ORDERED: LACTULOSE 20 GM/30 ML CUP PO PRN (19:12)
--- NOTE | 2020-09-14 19:15 | P.HPIM ---
History of Present Illness H&P Date: 09/14/20 50 years old female with past medical history of asthma, congestive heart failure not known systolic or diastolic, COPD, end-stage renal disease on hemodialysis Friday and Friday from lupus, hypertension, rheumatoid arthritis, history of lupus, vasculitis or autoimmune disorder, history of IBS, restless leg comes in with left upper extremity AV graft occlusion. Patient had the left it's upper extremity loop AV graft placed by Dr. Tran on 07/20/2019 followed by a fistulogram for a malfunctioning AV graft with no evidence of inflow or outflow stenosis or externalization by Dr. Tran in December 2019. Patient had a peritoneal catheter placed in May 2020 which was removed on for malfunctioning andpatient was placed back on hemodialysis. Patient was seen by Dr. Crawford on 08/08/2020 for pain involving the medial aspect of her graft. She was noted to have thrombosis of the subclavian vein with some stenosis and widely patent AV graft noted on left upper extremity ultrasound. Patient was planned to have a fistulogram with possible balloon venoplasty. Patient had her dialysis yesterday which could not be completed because of the thrombosis. Patient had a normal dialysis session on Friday. Patient noted to have shortness of breath requiring 2 L of oxygen in the ER with oxygen saturation dropping to 89%. She denied any pain in the left upper extremity or swelling. Patient underwent open thrombectomy of the left upper extremity loop forearm graft with fistulogram and balloon angioplasty of the basilic vein outflow tract with Dr. Estrada. An attempt to dialysis via left forearm graft will be done tomorrow. Vitals are reviewed patient is afebrile pulse 74 blood pressure 126/76 with oxygen saturation of 93% on room air. Labs are reviewed patient has a hemoglobin of 9.6 platelets 176 1 potassium 5.3 BUN 77 creatinine 8.99 proBNP is [id number] EKG suggested normal sinus rhythm with a possible left atrial enlargement LVH and prolonged QT nephrology consult placed Review of Systems Constitutional: Denies chills, Denies fever, endorses lethargic Eyes: denies decreased vision, denies diplopia, denies discharge, denies pain Ears: deny: decreased hearing Ears, nose, mouth and throat: Denies dental pain, Denies headache, Denies nasal discharge, Denies nose pain Cardiovascular: Denies chest pain, endorses decreased exercise tolerance, Denies edema, Denies high blood pressure, Denies irregular heart beat, Denies palpitations, Denies paroxysmal nocturnal dyspnea, Denies rapid heart beat, endorses shortness of breath Respiratory: Denies congestion, Denies cough, Denies cough with sputum, endorses dyspnea, Denies home oxygen, Denies wheezing Gastrointestinal: Denies abdominal pain, Denies change in bowel habits, Denies coffee ground emesis, Denies early satiety, Denies excessive gas, Denies heartburn, Denies hematemesis, Denies hematochezia, Denies loss of appetite, Denies nausea, Denies vomiting Genitourinary: Denies dysuria, Denies flank pain, Denies kidney stones, Denies menorrhagia, Denies urgency, Denies urinary frequency Musculoskeletal: Denies gait dysfunction, Denies limitation of motion, Denies morning stiffness, Denies muscle cramps Integumentary: Denies rash, Denies wounds, Denies brittle nails, Denies change in hair/nails, Denies darkening of skin Neurological: Denies balance difficulties, Denies change in speech, Denies double vision, Denies gait dysfunction, Denies loss of vision, Denies motor disturbance, Denies numbness, Denies paralysis, Denies paresthesias, Denies seizures Psychiatric: Denies anxiety, Denies depression Endocrine: Denies excessive sweating, Denies excessive thirst, Denies high blood sugars, Denies palpitations Hematologic/Lymphatic: Denies easy bruising, Denies lymphadenopathy Past Medical History Past Medical History: Asthma, Heart Failure, COPD, Dialysis, Fibromyalgia, GERD/Reflux, Hypertension, Renal Disease, Rheumatoid Arthritis (RA), Skin Disorder Additional Past Medical History / Comment(s): migraines, anemia, lupus, stage 5 renal failure, hemodialysis MOWEFR, vasculitis autoimmune disorder, glaucoma, hx ulcer, IBS, SOB with activity, restless leg, psoriasis History of Any Multi-Drug Resistant Organisms: None Reported Past Surgical History: Section Additional Past Surgical History / Comment(s): "port in chest"/removed, C/S x 3, cold knife conization, fistula left arm for hemodialysis, peritoneal dialysis catheter, PERITONEAL CATHETER REMOVED Past Anesthesia/Blood Transfusion Reactions: Family History of Problems w/ Anesthesia, Motion Sickness Additional Past Anesthesia/Blood Transfusion Reaction / Comment(s): slow to wake up after last procedure, mother PONV Past Psychological History: Anxiety Smoking Status: Former smoker Past Alcohol Use History: None Reported Additional Past Alcohol Use History / Comment(s): started smoking age 14, QUIT 08/2020 . SMOKED 1 PPD Past Drug Use History: None Reported Additional Drug Use History / Comment(s): DAILY- instructed to hold 24 hrs prior to procedure - Past Family History Mother Family Medical History: Cancer Additional Family Medical History / Comment(s): breast/ bladder and lung CA Father Family Medical History: Cancer Additional Family Medical History / Comment(s): pancreatic cancer Medications and Allergies Home Medications Medication Instructions Recorded Confirmed Type Folic Acid-Vit B Complex-Vit C 1 mg PO DAILY 12/06/19 09/14/20 History [Nephrocaps] amLODIPine [Norvasc] 10 mg PO DAILY 12/06/19 09/14/20 History Albuterol Inhaler [Ventolin Hfa 2 puff INHALATION RT-Q4H PRN 08/10/20 09/14/20 History Inhaler] Cinacalcet HCl [Sensipar] 60 mg PO W/SUPPER 08/10/20 09/14/20 History Hydroxychloroquine Sulfate 200 mg PO BID 08/10/20 09/14/20 History [Plaquenil] Amitriptyline HCl [Elavil] 10 mg PO HS 09/14/20 09/14/20 History Carvedilol [Coreg] 12.5 mg PO BID 09/14/20 09/14/20 History Fluticasone/Umeclidin/Vilanter 1 puff INHALATION RT-BID 09/14/20 09/14/20 History [Trelegy Ellipta 100-62.5-25] Furosemide [Lasix] 80 mg PO BID 09/14/20 09/14/20 History Isosorbide Dinitrate [Isordil] 10 mg PO Q8H 09/14/20 09/14/20 History Lactulose [Constulose] 20 gm PO BID PRN 09/14/20 09/14/20 History Lidocaine-Prilocaine Cream [Emla 1 applic TOPICAL DIRECTED PRN 09/14/20 09/14/20 History Cream 2.5%/2.5%] Sevelamer [Renvela] 3,200 mg PO TID 09/14/20 09/14/20 History cloNIDine HCL [Catapres] 0.1 mg PO TID 09/14/20 09/14/20 History hydrALAZINE HCL [Apresoline] 25 mg PO BID 09/14/20 09/14/20 History rOPINIRole HCL [Requip] 2 mg PO TID 09/14/20 09/14/20 History Allergies Allergy/AdvReac Type Severity Reaction Status Date / Time Iodinated Contrast Media Allergy Severe stopped Verified 09/14/20 12:15 breathing aspirin Allergy Swelling/hi Verified 09/14/20 12:15 ves Penicillins Allergy Dyspnea Verified 09/14/20 12:15 sulfamethoxazole Allergy Dyspnea Verified 09/14/20 12:15 [From Bactrim] trimethoprim [From Bactrim] Allergy Dyspnea Verified 09/14/20 12:15 Physical Exam Vitals: Vital Signs Temp Pulse Pulse Resp BP BP Pulse Ox 09/14/20 17:30 75 126/76 93 L 09/14/20 17:15 72 126/79 95 09/14/20 17:00 72 120/77 92 L 09/14/20 16:57 74 09/14/20 16:45 74 120/76 93 L 09/14/20 16:30 74 16 118/80 95 09/14/20 16:16 73 09/14/20 16:15 73 14 122/81 92 L 09/14/20 16:09 72 09/14/20 16:00 72 16 120/79 91 L 09/14/20 15:45 72 16 115/77 89 L 09/14/20 15:30 97.4 F L 73 14 114/76 91 L 09/14/20 13:08 98.9 F 73 20 125/82 95 09/14/20 12:36 98.4 F 77 18 135/91 98 09/14/20 11:00 98.1 F 93 18 147/102 96 Intake and Output 09/14/20 09/14/20 09/14/20 06:59 14:59 22:59 Intake Total 400 50 Output Total 50 Balance 400 0 Intake: IV 400 50 Output: Estimated Blood Loss 50 Other: Weight 55.338 kg 55.338 kg - Constitutional General appearance: cooperative, no acute distress, thin - EENT Eyes: anicteric sclerae, PERRLA, normal appearance ENT: hearing grossly normal - Neck Neck: no lymphadenopathy, normal ROM, no other, no rigidity, no stridor, no thyromegaly - Respiratory Respiratory: bilateral: Decreased air entry with no crackles or rhonchi - Cardiovascular Rhythm: regular Heart sounds: normal: S1, S2 Abnormal Heart Sounds: 3/6 systolic murmur, no diastolic murmur, peripheral pulses palpable left upper extremity with loop AV graft with site of incision red, no thrill felt distally, mild thrill proximally noted - Gastrointestinal General gastrointestinal: normal bowel sounds, soft - Integumentary Integumentary: no rash - Neurologic Neurologic: No gross motor deficit - Musculoskeletal Musculoskeletal: , strength equal bilaterally - Psychiatric Psychiatric: A&O x's 3, appropriate affect Results CBC & Chem 7: 09/14/20 11:39 09/14/20 11:39 Labs: Abnormal Lab Results - Last 24 Hours (Table) 09/14/20 09/14/20 Range/Units 11:39 11:39 RBC 2.80 L (3.80-5.40) m/uL Hgb 9.6 L (11.4-16.0) gm/dL Hct 27.4 L (34.0-46.0) % RDW 15.8 H (11.5-15.5) % Lymphocytes # 0.5 L (1.0-4.8) k/uL Potassium 5.3 H (3.5-5.1) mmol/L BUN 77 H (7-17) mg/dL Creatinine 8.99 H* (0.52-1.04) mg/dL Magnesium 2.4 H (1.6-2.3) mg/dL Total Protein 6.2 L (6.3-8.2) g/dL Thrombosis Risk Factor Assmnt - DVT/VTE Prophylaxis DVT/VTE Prophylaxis: Mechanical Prophylaxis ordered - Choose All That Apply Any of the Below Risk Factors Present?: Yes Each Factor Represents 1 point: Age 41-60 years, Minor surgery planned Thrombosis Risk Factor Assessment Total Risk Factor Score: 2 Thrombosis Risk Factor Assessment Level: Low Risk Assessment and Plan Plan: #1 left upper extremity AV graft occlusion status post open thrombectomy, fistulogram and balloon angioplasty of basilic vein outflow tract. With possible tunneled catheter placement tomorrow. An attempted dialysis will be made. If unsuccessful tunnel catheter will be placed #2 end-stage renal disease on hemodialysis on Friday and Friday. Plan for dialysis tomorrow. Consult nephrology continuously that 60 mg by mouth with supper continue Lasix 80 twice a day continue Renvela 3200 mg 3 times a day #3 history of asthma continue DuoNeb as needed #4 history of congestive heart failure unknown systolic or diastolic. Continue Coreg 12.5 twice a day continue isosorbide dinitrate #5 history of COPD continue DuoNeb not in exacerbation continue Trilogy elliptical twice a day #6 history of depression continue amitriptyline #7 history of hypertension continue amlodipine, continue clonidine 0.1 3 times a day continue hydralazine 25 twice a day #8 history of lupus nephritis continue Plaquenil 200 twice a day #9 history of restless leg syndrome continue Requip 2 mg 3 times a day #10 code status full code 11 DVT prophylaxis with SCDs #12 disposition likely discharge tomorrow after completion of dialysis
[2020-09-14] MEDS ORDERED: AMITRIPTYLINE HCL 10 MG TAB PO SCH (21:00)
[2020-09-14] MEDS: IPRATROPIUM 0.5 MG/2.5 ML NEBU INHALATION SCH (21:04)
[2020-09-14] MEDS: SYMBICORT 80-4.5 MCG INHALER INHALATION SCH (21:04)
[2020-09-14] MEDS: cloNIDine HCL 0.1 MG TAB PO SCH (22:31)
[2020-09-14] MEDS: ISOSORBIDE DINITRATE 10 MG TAB PO SCH (22:32)
[2020-09-14] MEDS: HYDROXYCHLOROQUINE SULFATE 200 MG TAB PO SCH (22:32)
[2020-09-14] MEDS: hydrALAZINE HCL 25 MG TAB PO SCH (22:32)
[2020-09-15] MEDS ORDERED: diphenhydrAMINE 25 MG CAP PO PRN (03:31)
[2020-09-15] MEDS ORDERED: carvediloL 12.5 MG TAB PO SCH (07:30)
[2020-09-15 07:52] VITALS: BP 130/78; RESP 16; TEMP 99
[2020-09-15] MEDS: hydrALAZINE HCL 25 MG TAB PO SCH (08:28)
[2020-09-15] MEDS: HYDROXYCHLOROQUINE SULFATE 200 MG TAB PO SCH (08:29)
[2020-09-15] MEDS: SYMBICORT 80-4.5 MCG INHALER INHALATION SCH (08:29)
[2020-09-15] MEDS: IPRATROPIUM 0.5 MG/2.5 ML NEBU INHALATION SCH ×2 (08:29→12:00)
[2020-09-15] MEDS: SEVELAMER 800 MG TAB PO SCH ×2 (08:37→12:28)
[2020-09-15 08:42] VITALS: PULSE 80
[2020-09-15] MEDS ORDERED: FOLIC ACID-VIT B COMPLEX-VIT C 1 CAP PO SCH (09:00)
[2020-09-15] MEDS ORDERED: amLODIPine 10 MG TAB PO SCH (09:00)
[2020-09-15] MEDS ORDERED: FUROSEMIDE 80 MG TAB PO SCH (09:00)
[2020-09-15] MEDS: cloNIDine HCL 0.1 MG TAB PO SCH (09:16)
--- NOTE | 2020-09-15 09:16 | P.DS ---
Providers Date of admission: 09/14/20 11:30 Expected date of discharge: 09/15/20 Attending physician: Melina Freire Consults: 09/14/20 11:31 Consult Physician Urgent Consulting Provider: Millicent Estrada Consult Reason/Comments: Occluded AV graft Do you want consulting provider notified?: Already Contacted 09/14/20 12:51 Consult Physician Routine Consulting Provider: Angela Davila Consult Reason/Comments: hemodialysis Do you want consulting provider notified?: Yes Primary care physician: [facility] Course: 50 years old female with past medical history of asthma, congestive heart failure not known systolic or diastolic, COPD, end-stage renal disease on hemodialysis Friday and Friday from lupus, hypertension, rheumatoid arthritis, history of lupus, vasculitis or autoimmune disorder, history of IBS, restless leg comes in with left upper extremity AV graft occlusion. Patient had the left it's upper extremity loop AV graft placed by Dr. Tran on 07/20/2019 followed by a fistulogram for a malfunctioning AV graft with no evidence of inflow or outflow stenosis or externalization by Dr. Tran in December 2019. Patient had a peritoneal catheter placed in May 2020 which was removed on for malfunctioning andpatient was placed back on hemodialysis. Patient was seen by Dr. Tran on 08/08/2020 for pain involving the medial aspect of her graft. She was noted to have thrombosis of the subclavian vein with some stenosis and widely patent AV graft noted on left upper extremity ultrasound. Patient was planned to have a fistulogram with possible balloon venoplasty. Patient had her dialysis yesterday which could not be completed because of the thrombosis. Patient had a normal dialysis session on Friday. Patient noted to have shortness of breath requiring 2 L of oxygen in the ER with oxygen saturation dropping to 89%. She denied any pain in the left upper extremity or swelling. Patient underwent open thrombectomy of the left upper extremity loop forearm graft with fistulogram and balloon angioplasty of the basilic vein outflow tract with Dr. Estrada. An attempt to dialysis via left forearm graft will be done tomorrow. Vitals are reviewed patient is afebrile pulse 74 blood pressure 126/76 with oxygen saturation of 93% on room air. Labs are reviewed patient has a hemoglobin of 9.6 platelets 176 1 potassium 5.3 BUN 77 creatinine 8.99 proBNP is [id number] EKG suggested normal sinus rhythm with a possible left atrial enlargement LVH and prolonged QT nephrology consult placed 09/15: Patient has been seen by Dr. Estrada and open thrombectomy of the left upper extremity loop forearm graft, fistulogram, perch cutaneous transluminal balloon angioplasty basilic vein outflow tract has been completed and patient is undergoing hemodialysis this morning. Patient has also been seen and followed by Dr. Davila. She is cleared for discharge as her dialysis access is functioning and plan will be to continue outpatient hemodialysis. Patient has been afebrile, heart rate 80, blood pressure 130/78, pulse ox 96% on room air. Patient will be discharged home today in stable condition. DISCHARGE DIAGNOSES #1 left upper extremity AV graft occlusion status post open thrombectomy, fistulogram and balloon angioplasty of basilic vein outflow tract. #2 end-stage renal disease on hemodialysis on Friday and Friday. #3 history of mild intermittent asthma #4 history of heart failure unknown systolic or diastolic. #5 history of COPD #6 history of recurrent depression #7 history of hypertension #8 history of lupus nephritis #9 history of restless leg syndrome DISCHARGE PLAN HOME. Impression and plan of care have been directed as dictated by the signing physician. Yumiko Olguin nurse practitioner acting as scribe for signing physician. Patient Condition at Discharge: Stable Plan - Discharge Summary New Discharge Prescriptions: Continue amLODIPine [Norvasc] 10 mg PO DAILY Folic Acid-Vit B Complex-Vit C [Nephrocaps] 1 mg PO DAILY Cinacalcet HCl [Sensipar] 60 mg PO W/SUPPER Albuterol Inhaler [Ventolin Hfa Inhaler] 2 puff INHALATION RT-Q4H PRN PRN Reason: Shortness Of Breath Sevelamer [Renvela] 3,200 mg PO TID Isosorbide Dinitrate [Isordil] 10 mg PO Q8H Furosemide [Lasix] 80 mg PO BID Amitriptyline HCl [Elavil] 10 mg PO HS Hydroxychloroquine Sulfate [Plaquenil] 200 mg PO BID Lidocaine-Prilocaine Cream [Emla Cream 2.5%/2.5%] 1 applic TOPICAL DIRECTED PRN PRN Reason: PORT ACCESS Fluticasone/Umeclidin/Vilanter [Trelegy Ellipta 100-62.5-25] 1 puff INHALATION RT-BID rOPINIRole HCL [Requip] 2 mg PO TID Lactulose [Constulose] 20 gm PO BID PRN PRN Reason: Constipation hydrALAZINE HCL [Apresoline] 25 mg PO BID cloNIDine HCL [Catapres] 0.1 mg PO TID Carvedilol [Coreg] 12.5 mg PO BID Discharge Medication List Folic Acid-Vit B Complex-Vit C [Nephrocaps] 1 mg PO DAILY 12/06/19 [History] amLODIPine [Norvasc] 10 mg PO DAILY 12/06/19 [History] Albuterol Inhaler [Ventolin Hfa Inhaler] 2 puff INHALATION RT-Q4H PRN 08/10/20 [History] Cinacalcet HCl [Sensipar] 60 mg PO W/SUPPER 08/10/20 [History] Hydroxychloroquine Sulfate [Plaquenil] 200 mg PO BID 08/10/20 [History] Amitriptyline HCl [Elavil] 10 mg PO HS 09/14/20 [History] Carvedilol [Coreg] 12.5 mg PO BID 09/14/20 [History] Fluticasone/Umeclidin/Vilanter [Trelegy Ellipta 100-62.5-25] 1 puff INHALATION RT-BID 09/14/20 [History] Furosemide [Lasix] 80 mg PO BID 09/14/20 [History] Isosorbide Dinitrate [Isordil] 10 mg PO Q8H 09/14/20 [History] Lactulose [Constulose] 20 gm PO BID PRN 09/14/20 [History] Lidocaine-Prilocaine Cream [Emla Cream 2.5%/2.5%] 1 applic TOPICAL DIRECTED PRN 09/14/20 [History] Sevelamer [Renvela] 3,200 mg PO TID 09/14/20 [History] cloNIDine HCL [Catapres] 0.1 mg PO TID 09/14/20 [History] hydrALAZINE HCL [Apresoline] 25 mg PO BID 09/14/20 [History] rOPINIRole HCL [Requip] 2 mg PO TID 09/14/20 [History] Follow up Appointment(s)/Referral(s): Melina Freire MD [Primary Care Provider] - 1 Week Lico Tran DO [STAFF PHYSICIAN] - 10 Days (Office is closed on Fridays, Call to make an appointment on Friday, September 18 at [phone]) Discharge Disposition: HOME SELF-CARE
[2020-09-15] MEDS: ISOSORBIDE DINITRATE 10 MG TAB PO SCH (09:17)
--- NOTE | 2020-09-15 16:03 | CONS ---
CONSULTATION REASON FOR CONSULT: End-stage renal disease. HISTORY OF PRESENT ILLNESS: Patient is a 50-year-old female with end-stage renal disease, on hemodialysis on a Friday, Friday, Friday schedule. The patient was admitted to the hospital as her access was clotted. She did have intervention by vascular surgery. Dr. Estrada performed open thrombectomy of the left upper arm AV graft. She is currently receiving dialysis and her access is functioning fairly well. PAST MEDICAL HISTORY: End-stage renal disease, CKD mineral bone disorder, COPD, gastroesophageal reflux disease, history of rheumatoid arthritis, COPD, CHF, irritable bowel syndrome, glaucoma, history of lupus. PAST SURGICAL HISTORY: , AV graft, left arm; PermCath insertion and removal, peritoneal dialysis catheter placement and removal. SOCIAL HISTORY: Patient is a former smoker. No history of drug abuse or alcohol abuse. MEDICATIONS: Medications prior to admission included Nephrocaps, Norvasc, Sensipar, Plaquenil, Elavil, Coreg, Lasix, Isordil, Renvela, clonidine, hydralazine, Requip. ALLERGIES: ALLERGIES INCLUDE IV DYE, ASPIRIN, PENICILLIN, BACTRIM. REVIEW OF SYSTEMS: As per HPI. Other systems negative. EXAMINATION: Comfortable, awake, alert, oriented x3, not in any acute distress. Blood pressure 130/78, heart rate 80 per minute. She is afebrile. Examination of the heart S1, S2. Examination of the lungs, bilateral breath sounds are heard. Abdomen is soft, nontender. Examination of lower extremities shows 1+ edema. 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 LAB: Show sodium 139, potassium 5.3, chloride 98, BUN 77, creatinine 8.9, hemoglobin 9.6 g/dL. ASSESSMENT: 1. End-stage renal disease, on hemodialysis on a Friday, Friday, Friday schedule. Patient will be dialyzed. The patient is being dialyzed today and she could be discharged post dialysis. Her access is functioning. 2. Thrombosed left arm AV graft, status post open thrombectomy. 3. Hypertension. 4. History of lupus. PLAN: The patient is stable for discharge post dialysis today. Adjust dry weight as outpatient. Consider levocarnitine for cramps as outpatient on hemodialysis. MMODL / IJN: [id number] /
[2020-09-15] MEDS ORDERED: CINACALCET 30 MG TAB PO SCH (17:30)
== END 2020-09-15 13:18 | disposition home or self-care (01) ==
LOC: EC 10:54 → 6NMEDSUR 11:30
PROVIDERS: ADMIT Family Medicine; ATTEND Family Medicine
DX: T82.898A Other specified complication of vascular prosthetic devices, implants and grafts, initial encounter (principal); I82.B12 Acute embolism and thrombosis of left subclavian vein; I13.2 Hypertensive heart and chronic kidney disease with heart failure and with stage 5 chronic kidney disease, or end stage renal disease; N18.6 End stage renal disease; I50.9 Heart failure, unspecified; Z99.2 Dependence on renal dialysis; J44.9 Chronic obstructive pulmonary disease, unspecified; M06.9 Rheumatoid arthritis, unspecified; M32.14 Glomerular disease in systemic lupus erythematosus; M79.7 Fibromyalgia; K21.9 Gastro-esophageal reflux disease without esophagitis; L40.9 Psoriasis, unspecified; G25.81 Restless legs syndrome; J45.20 Mild intermittent asthma, uncomplicated; D64.9 Anemia, unspecified; G43.909 Migraine, unspecified, not intractable, without status migrainosus; H40.9 Unspecified glaucoma; K58.9 Irritable bowel syndrome, unspecified; D89.89 Other specified disorders involving the immune mechanism, not elsewhere classified; I77.6 Arteritis, unspecified; F33.9 Major depressive disorder, recurrent, unspecified; F41.9 Anxiety disorder, unspecified; Z79.899 Other long term (current) drug therapy; Z88.0 Allergy status to penicillin; Z88.6 Allergy status to analgesic agent; Z88.1 Allergy status to other antibiotic agents; Z91.041 Radiographic dye allergy status; Z98.891 History of uterine scar from previous surgery; Z98.890 Other specified postprocedural states; Z87.891 Personal history of nicotine dependence; Z80.1 Family history of malignant neoplasm of trachea, bronchus and lung; Z80.0 Family history of malignant neoplasm of digestive organs; Z80.52 Family history of malignant neoplasm of bladder; Z80.3 Family history of malignant neoplasm of breast
CPT/HCPCS: 36831; 99285; 36415; 94640 ×4; 94760; 93005; 83880; 80053; 83735; 85025; 85610; 85730; 84703; G0257; G0378 ×2; C1757 ×2; C1894; C1769 ×3; C1725; J2001; J2250; J1200; J1644; J2930; J2405; J3010; J2270; Q9966; Q9967; 90935

== ENCOUNTER 2020-11-15 10:07 | Inpatient (IN) | payer MEDICARE, OTHER ==
--- NOTE | 2020-11-15 11:03 | ED ---
General Adult HPI - General Chief complaint: Recheck/Abnormal Lab/Rx Stated complaint: SOB & needs dialysis Time Seen by Provider: 11/15/20 10:21 Source: patient, RN notes reviewed Mode of arrival: wheelchair Limitations: no limitations - History of Present Illness Initial comments: 50-year-old female with ESRD on dialysis with a past medical history of heart failure, COPD presents to the emergency room for a chief complaint of dialysis catheter failure. Patient states she last had dialysis on Friday and went to get it again today but it would not work. Patient was seen by Dr. Estrada and directed to come to the ER. Patient states this happened about 2 months ago and she needed a thrombectomy. Patient denies any specific complaints to sit admits that she feels "full" and like she needs dialysis.Patient has no other complaints at this time including shortness of breath, chest pain, abdominal pain, nausea or vomiting, headache, or visual changes. - Related Data Home Medications Medication Instructions Recorded Confirmed Folic Acid-Vit B Complex-Vit C 1 mg PO DAILY 12/06/19 11/15/20 [Nephrocaps] amLODIPine [Norvasc] 10 mg PO DAILY 12/06/19 11/15/20 Albuterol Inhaler [Ventolin Hfa 2 puff INHALATION RT-Q4H PRN 08/10/20 11/15/20 Inhaler] Cinacalcet HCl [Sensipar] 60 mg PO W/SUPPER 08/10/20 11/15/20 Hydroxychloroquine Sulfate 200 mg PO BID 08/10/20 11/15/20 [Plaquenil] Amitriptyline HCl [Elavil] 10 mg PO HS 09/14/20 11/15/20 Carvedilol [Coreg] 12.5 mg PO BID 09/14/20 11/15/20 Fluticasone/Umeclidin/Vilanter 1 puff INHALATION RT-BID 09/14/20 11/15/20 [Trelegy Ellipta 100-62.5-25] Furosemide [Lasix] 80 mg PO BID 09/14/20 11/15/20 Isosorbide Dinitrate [Isordil] 10 mg PO Q8H 09/14/20 11/15/20 Lactulose [Constulose] 20 gm PO BID PRN 09/14/20 11/15/20 Lidocaine-Prilocaine Cream [Emla 1 applic TOPICAL DIRECTED PRN 09/14/20 11/15/20 Cream 2.5%/2.5%] Sevelamer [Renvela] 3,200 mg PO TID 09/14/20 11/15/20 cloNIDine HCL [Catapres] 0.1 mg PO TID 09/14/20 11/15/20 hydrALAZINE HCL [Apresoline] 100 mg PO TID 09/14/20 11/15/20 rOPINIRole HCL [Requip] 2 mg PO TID 09/14/20 11/15/20 Auryxia 840 mg PO TID 11/15/20 11/15/20 Allergies Allergy/AdvReac Type Severity Reaction Status Date / Time Iodinated Contrast Media Allergy Severe stopped Verified 11/15/20 11:02 breathing aspirin Allergy Swelling/hi Verified 11/15/20 11:02 ves Penicillins Allergy Dyspnea Verified 11/15/20 11:02 sulfamethoxazole Allergy Dyspnea Verified 11/15/20 11:02 [From Bactrim] trimethoprim [From Bactrim] Allergy Dyspnea Verified 11/15/20 11:02 Review of Systems ROS Statement: Those systems with pertinent positive or pertinent negative responses have been documented in the HPI. ROS Other: All systems not noted in ROS Statement are negative. Past Medical History Past Medical History: Asthma, Heart Failure, COPD, Dialysis, Fibromyalgia, GERD/Reflux, Hypertension, Renal Disease, Rheumatoid Arthritis (RA), Skin Disorder Additional Past Medical History / Comment(s): migraines, anemia, lupus, stage 5 renal failure, hemodialysis MOWEFR, vasculitis autoimmune disorder, glaucoma, hx ulcer, IBS, SOB with activity, restless leg, psoriasis History of Any Multi-Drug Resistant Organisms: None Reported Past Surgical History: Section Additional Past Surgical History / Comment(s): "port in chest"/removed, C/S x 3, cold knife conization, fistula left arm for hemodialysis, peritoneal dialysis catheter, PERITONEAL CATHETER REMOVED Past Anesthesia/Blood Transfusion Reactions: Family History of Problems w/ Anesthesia, Motion Sickness Additional Past Anesthesia/Blood Transfusion Reaction / Comment(s): slow to wake up after last procedure, mother PONV Past Psychological History: Anxiety Smoking Status: Former smoker Past Alcohol Use History: None Reported Past Drug Use History: None Reported - Past Family History Mother Family Medical History: Cancer Additional Family Medical History / Comment(s): breast/ bladder and lung CA Father Family Medical History: Cancer Additional Family Medical History / Comment(s): pancreatic cancer General Exam Limitations: no limitations General appearance: alert, in no apparent distress Head exam: Present: atraumatic Eye exam: Present: normal appearance, PERRL, EOMI. Absent: scleral icterus, conjunctival injection ENT exam: Present: normal exam, mucous membranes moist Neck exam: Present: normal inspection, full ROM. Absent: tenderness Respiratory exam: Present: normal lung sounds bilaterally. Absent: respiratory distress, wheezes Cardiovascular Exam: Present: regular rate, normal rhythm, normal heart sounds GI/Abdominal exam: Present: soft, normal bowel sounds. Absent: distended, tenderness Course Vital Signs 11/15/20 11/15/20 11/15/20 10:11 11:15 12:00 Temperature 97.9 F Pulse Rate 86 87 88 Respiratory 18 20 18 Rate Blood Pressure 150/85 144/105 158/100 O2 Sat by Pulse 95 92 L 93 L Oximetry EKG Findings - EKG Comments: EKG Findings:: NSR, vent rate 67, IL int 186, QTC 424 Medical Decision Making - Medical Decision Making Vitals are stable. Patient does feel short of breath. Patient was sent in by Dr. Estrada as her dialysis catheter is not working. CBC was obtained which was unremarkable. CMP revealed a normal potassium of 4.7. Chest x-ray did reveal CHF, BNP is ordered and pending. Dr. Estrada requested admission to medicine. Spoke with Dr. Mott, requests a dose of 40 mg IV Lasix be given. Nephrology will be consulted as well. - Lab Data Result diagrams: 11/15/20 11:29 11/15/20 11:29 Lab Results 11/15/20 11/15/20 Range/Units 11:29 11:29 WBC 4.4 (3.8-10.6) k/uL RBC 2.93 L (3.80-5.40) m/uL Hgb 10.4 L (11.4-16.0) gm/dL Hct 31.3 L (34.0-46.0) % MCV 106.8 H D (80.0-100.0) fL MCH 35.3 H (25.0-35.0) pg MCHC 33.1 (31.0-37.0) g/dL RDW 13.6 (11.5-15.5) % Plt Count 111 L (150-450) k/uL MPV 8.0 Neutrophils % 75 % Lymphocytes % 13 % Monocytes % 6 % Eosinophils % 3 % Basophils % 0 % Neutrophils # 3.3 (1.3-7.7) k/uL Lymphocytes # 0.6 L (1.0-4.8) k/uL Monocytes # 0.3 (0-1.0) k/uL Eosinophils # 0.1 (0-0.7) k/uL Basophils # 0.0 (0-0.2) k/uL Macrocytosis Moderate Sodium 138 (137-145) mmol/L Potassium 4.7 (3.5-5.1) mmol/L Chloride 100 (98-107) mmol/L Carbon Dioxide 26 (22-30) mmol/L Anion Gap 12 mmol/L BUN 49 H (7-17) mg/dL Creatinine 6.15 H (0.52-1.04) mg/dL Est GFR (CKD-EPI)AfAm 9 (>60 ml/min/1.73 sqM) Est GFR (CKD-EPI)NonAf 7 (>60 ml/min/1.73 sqM) Glucose 95 (74-99) mg/dL Calcium 8.9 (8.4-10.2) mg/dL HCG, Qual Cancelled Disposition Clinical Impression: CHF (congestive heart failure), Renal failure, End stage renal disease, AV fistula occlusion Disposition: ADMITTED IP TO THIS [facility] Is patient prescribed a controlled substance at d/c from ED?: No Referrals: Melina Freire MD [Primary Care Provider] - 1-2 days Time of Disposition: 13:03
--- NOTE | 2020-11-15 11:43 | XR ---
EXAMINATION TYPE: XR chest 2V DATE OF EXAM: 11/15/2020 COMPARISON: NONE HISTORY: Shortness of breath TECHNIQUE: Frontal and lateral views of the chest are obtained. FINDINGS: The osseous structures are intact. There is cardiomegaly with atherosclerotic thoracic aor ta. There are reticular interstitial changes bilaterally including Curly B lines in the periphery. Th ere are small right greater than left pleural effusions. There is associated by basilar opacity. Ther e is moderate right greater than left biapical pleural/parenchymal scarring. IMPRESSION: Suspect CHF exacerbation as there is cardiomegaly with at least mild interstitial edema and small right greater than left pleural effusions. Correlate clinically. There is associated bibasi lar atelectasis and/or infiltrate. Mild to moderate underlying parenchymal fibrotic changes cannot be excluded without prior comparison. Correlation with old outside chest x-ray would be beneficial.
[2020-11-15 12:15] LABS: Basophils % (A) 0 %; Eosinophils # (A) 0.1 k/uL (0-0.7); Eosinophils % (A) 3 %; HCT 31.3 % (34.0-46.0); HGB 10.4 gm/dL (11.4-16.0); Lymphocytes # (A) 0.6 k/uL (1.0-4.8); Lymphocytes % (A) 13 %; MCH 35.3 pg (25.0-35.0); MCHC 33.1 g/dL (31.0-37.0); Macrocytosis Moderate; Monocytes # (A) 0.3 k/uL (0-1.0); Monocytes % (A) 6 %; Neutrophils # (A) 3.3 k/uL (1.3-7.7); Neutrophils % (A) 75 %; Platelet Count 111 k/uL (150-450); RBC 2.93 m/uL (3.80-5.40); RDW 13.6 % (11.5-15.5); WBC 4.4 k/uL (3.8-10.6)
[2020-11-15 12:16] LABS: MCV 106.8 fL (80.0-100.0)
[2020-11-15 12:33] LABS: African American GFR (CKD) 9 (>60 ml/min/1.73 sqM); Anion Gap 12 mmol/L; Blood Urea Nitrogen 49 mg/dL (7-17); Calcium 8.9 mg/dL (8.4-10.2); Carbon Dioxide 26 mmol/L (22-30); Chloride 100 mmol/L (98-107); Glucose 95 mg/dL (74-99); Non-African American GFR(CKD) 7 (>60 ml/min/1.73 sqM); Potassium 4.7 mmol/L (3.5-5.1); Sodium 138 mmol/L (137-145)
--- NOTE | 2020-11-15 12:40 | P.GSCN ---
History of Present Illness Consult date: 11/15/20 Reason for Consult: Occluded left upper extremity AV graft Requesting physician: Jacinto Sauceda History of present illness: Patient is a 50-year-old white female who presented to the emergency department with complaints of shortness of breath. The patient states she went to hemodialysis today but they were unable to access her left upper extremity AV graft. Her last hemodialysis was on Friday. She does state that they did have some difficulty at first with accessing however did state that she did get a full treatment. She states she is having some increased shortness of breath today and feeling full. Her past medical history includes asthma, heart failure, COPD, end-stage renal disease on dialysis, fibromyalgia and GERD. The patient gets dialysis Friday and Friday. Left upper extremity loop AV graft which was placed by Dr. Tran on 07/20/2019, in December 2019 Dr. Tran to the left upper extremity fistulogram for a malfunctioning AV graft. In August of this year she had a thrombosed left upper extremity loop graft and underwent an open thrombectomy, fistulogram, and balloon angioplasty of the basilic vein with Dr. Estrada. Since then she's been having no problems with access and her hemodialysis until today. He does state that she has some mild tenderness at graft site. She has a previous history of a peritoneal dialysis catheter which was removed in August of this year by Dr. Russell. She also had a history of a right IJ tunneled catheter. Vascular surgery was consulted for occlusion of the left upper extremity AV graft. Oxygen saturation 92%, 2 L of nasal cannula was applied. Labs are currently pending. Patient underwent a chest x-ray that states suspect CHF exacerbation as there is cardiomegaly with at least mild interstitial edema and small right greater than left pleural effusions. Correlate clinically. There is associated bibasilar atelectasis ectasia and or infiltrate. Mild to moderate underlying parenchymal fibrotic changes cannot be excluded without prior comparison. Correlation with old outside chest x-ray would be beneficial. Labs are currently pending. Patient denies any recent fever, cough, chest pain, abdominal pain, nausea or vomiting. Review of Systems A 14 point review of systems was completed all pertinent positives and negatives as stated in the HPI. Past Medical History Past Medical History: Asthma, Heart Failure, COPD, Dialysis, Fibromyalgia, GERD/Reflux, Hypertension, Renal Disease, Rheumatoid Arthritis (RA), Skin Disorder Additional Past Medical History / Comment(s): migraines, anemia, lupus, stage 5 renal failure, hemodialysis MOWEFR, vasculitis autoimmune disorder, glaucoma, hx ulcer, IBS, SOB with activity, restless leg, psoriasis History of Any Multi-Drug Resistant Organisms: None Reported Past Surgical History: Section Additional Past Surgical History / Comment(s): "port in chest"/removed, C/S x 3, cold knife conization, fistula left arm for hemodialysis, peritoneal dialysis catheter, PERITONEAL CATHETER REMOVED Past Anesthesia/Blood Transfusion Reactions: Family History of Problems w/ Anesthesia, Motion Sickness Additional Past Anesthesia/Blood Transfusion Reaction / Comm: slow to wake up after last procedure, mother PONV Past Psychological History: Anxiety Smoking Status: Former smoker Past Alcohol Use History: None Reported Past Drug Use History: None Reported - Past Family History Mother Family Medical History: Cancer Additional Family Medical History / Comment(s): breast/ bladder and lung CA Father Family Medical History: Cancer Additional Family Medical History / Comment(s): pancreatic cancer Medications and Allergies Home Medications Medication Instructions Recorded Confirmed Type Folic Acid-Vit B Complex-Vit C 1 mg PO DAILY 12/06/19 11/15/20 History [Nephrocaps] amLODIPine [Norvasc] 10 mg PO DAILY 12/06/19 11/15/20 History Albuterol Inhaler [Ventolin Hfa 2 puff INHALATION RT-Q4H PRN 08/10/20 11/15/20 History Inhaler] Cinacalcet HCl [Sensipar] 60 mg PO W/SUPPER 08/10/20 11/15/20 History Hydroxychloroquine Sulfate 200 mg PO BID 08/10/20 11/15/20 History [Plaquenil] Amitriptyline HCl [Elavil] 10 mg PO HS 09/14/20 11/15/20 History Carvedilol [Coreg] 12.5 mg PO BID 09/14/20 11/15/20 History Fluticasone/Umeclidin/Vilanter 1 puff INHALATION RT-BID 09/14/20 11/15/20 History [Trelegy Ellipta 100-62.5-25] Furosemide [Lasix] 80 mg PO BID 09/14/20 11/15/20 History Isosorbide Dinitrate [Isordil] 10 mg PO Q8H 09/14/20 11/15/20 History Lactulose [Constulose] 20 gm PO BID PRN 09/14/20 11/15/20 History Lidocaine-Prilocaine Cream [Emla 1 applic TOPICAL DIRECTED PRN 09/14/20 11/15/20 History Cream 2.5%/2.5%] Sevelamer [Renvela] 3,200 mg PO TID 09/14/20 11/15/20 History cloNIDine HCL [Catapres] 0.1 mg PO TID 09/14/20 11/15/20 History hydrALAZINE HCL [Apresoline] 100 mg PO TID 09/14/20 11/15/20 History rOPINIRole HCL [Requip] 2 mg PO TID 09/14/20 11/15/20 History Auryxia 840 mg PO TID 11/15/20 11/15/20 History Allergies Allergy/AdvReac Type Severity Reaction Status Date / Time Iodinated Contrast Media Allergy Severe stopped Verified 11/15/20 11:02 breathing aspirin Allergy Swelling/hi Verified 11/15/20 11:02 ves Penicillins Allergy Dyspnea Verified 11/15/20 11:02 sulfamethoxazole Allergy Dyspnea Verified 11/15/20 11:02 [From Bactrim] trimethoprim [From Bactrim] Allergy Dyspnea Verified 11/15/20 11:02 Surgical - Exam Vital Signs Temp Pulse Resp BP Pulse Ox 97.9 F 86 18 150/85 95 11/15/20 10:11 11/15/20 10:11 11/15/20 10:11 11/15/20 10:11 11/15/20 10:11 General appearance: The patient is alert, oriented, appears in no acute distress. HET: Head is normocephalic and atraumatic. Neck: Supple without lymphadenopathy. Trachea midline. Heart: S1 S2. Regular rate and rhythm. Lungs: No crackles or wheezes are heard. Diminished. Abdomen: Soft, nontender, nondistended. Extremities: Normal skin color and turgor. No cyanosis, rash, ulceration, clubbing, or edema. Palpable bilateral radial pulses. No palpable thrill or audible bruit of left upper extremity loop graft. Neurological: No focal deficits. Alert and oriented 3. Results - Labs 11/15/20 11:29 Abnormal Lab Results - Last 24 Hours (Table) 11/15/20 Range/Units 11:29 RBC 2.93 L (3.80-5.40) m/uL Hgb 10.4 L (11.4-16.0) gm/dL Hct 31.3 L (34.0-46.0) % MCV 106.8 H D (80.0-100.0) fL MCH 35.3 H (25.0-35.0) pg Plt Count 111 L (150-450) k/uL Lymphocytes # 0.6 L (1.0-4.8) k/uL - Imaging Comments: As stated in HPI Chest x-ray: report reviewed Assessment and Plan Assessment: 1. Left upper extremity AV graft occlusion 2. End-stage renal disease on hemodialysis 3. History of asthma 4. History of heart failure 5. History of COPD Plan: 1. Keep nothing by mouth after midnight 2. CBC, BMP in AM 3. Patient will be scheduled for left upper extremity open thrombectomy, possible fistulogram, possible tunneled dialysis catheter tomorrow with Dr. Bell 4. Continue medical management per primary medicine team 5. Consult nephrology, for recommendations on hemodialysis Thank you for this consultation. The impression and plan of care has been dictated as directed. Dr. Estrada I performed a history and examination of this patient, discussed the same with the dictator. I agree with the dictator's note ,documented as a scribe. Any additional findings or plans will be noted.
[2020-11-15] MEDS ORDERED: FUROSEMIDE 10 MG/ML 4 ML VIAL IV STA (13:01)
[2020-11-15] MEDS ORDERED: NALOXONE 0.4 MG/ML 1 ML VIAL IV PRN (13:21)
[2020-11-15 13:23] LABS: HCG,Quantitative Serum <2.4 mIU/mL
[2020-11-15] MEDS ORDERED: LACTULOSE 20 GM/30 ML CUP PO PRN (14:35)
--- NOTE | 2020-11-15 14:49 | P.HPIM ---
History of Present Illness H&P Date: 11/15/20 History of present illness 50 years old female with past medical history of asthma, congestive heart failure not known systolic or diastolic( patient reports eating EF of 40%), COPD, end-stage renal disease on hemodialysis Friday and Friday from lupus, hypertension, rheumatoid arthritis, history of lupus, vasculitis or autoimmune disorder, history of IBS, restless leg comes in with left upper extremity AV graft occlusion. Patient had the left it's upper extremity loop AV graft placed by Dr. Tran on 07/20/2019 followed by a fistulogram for a malfunctioning AV graft with no evidence of inflow or outflow stenosis or externalization by Dr. Tran in December 2019. Patient had a peritoneal catheter placed in May 2020 which was removed on for malfunctioning and patient was placed back on hemodialysis. Patient was seen by Dr. Crawford on 08/08/2020 for pain involving the medial aspect of her graft. She was noted to have thrombosis of the subclavian vein with some stenosis and widely patent AV graft noted on left upper extremity ultrasound but patient was admitted with AV graft occlusion prior to the scheduled procedure on 09/14 and underwent open thrombectomy, fistulogram and balloon angioplasty of left lower vein outflow by Dr. Estrada. Patient had a normal dialysis session on Friday but was noted to be volume overload. She went for dialysis session today but could not get dialysis due to malfunctioning of her graft. She is very short of br eath on assessment and complains of epigastric pain. Patient denies any cough, chest pain, diarrhea or nausea or vomiting. Patient noted to have shortness of breath saturating at 90-92% requiring 2 L of oxygen in the ER She denied any pain in the left upper extremity or swelling. Vitals reviewed patient is afebrile pulse 88 respiratory rate 22 blood pressure 155/100 . Lab reviewed patient is a hemoglobin 10.4 platelet 111 WBC 4.4 creatinine 6.15 nightly 49 sodium 138 potassium 4.7 proBNP is 23,000. One dose of Lasix in the ER. Nephrology and vascular surgery consulted for open thrombectomy. ROS Constitutional: Denies chills, Denies fever, Denies lethargy, Denies malaise, Denies poor appetite, Denies weakness, Denies weight loss Eyes: denies decreased vision, denies diplopia, denies discharge, denies pain Ears: deny: decreased hearing Ears, nose, mouth and throat: Denies dental pain, Denies headache, Denies nasal discharge, Denies nose pain Cardiovascular: Denies chest pain, Denies decreased exercise tolerance, Denies edema, Denies high blood pressure, Denies irregular heart beat, Denies palpitations, Denies paroxysmal nocturnal dyspnea, Denies rapid heart beat, Denies shortness of breath Respiratory: Denies congestion, Denies cough, Denies cough with sputum, endorses dyspnea, patient wears oxygen while getting dialysis session, Denies wheezing Gastrointestinal: Endorses abdominal pain, Denies change in bowel habits, Denies coffee ground emesis, Denies early satiety, Denies excessive gas, Denies heartburn, Denies hematemesis, Denies hematochezia, Denies loss of appetite, Denies nausea, Denies vomiting Genitourinary: Denies dysuria, Denies flank pain, Denies kidney stones, Denies menorrhagia, Denies urgency, Denies urinary frequency Musculoskeletal: Denies gait dysfunction, Denies limitation of motion, Denies morning stiffness, Denies muscle cramps Integumentary: Denies rash, Denies wounds, Denies brittle nails, Denies change in hair/nails, Denies darkening of skin Neurological: Denies balance difficulties, Denies change in speech, Denies double vision, Denies gait dysfunction, Denies loss of vision, Denies motor disturbance, Denies numbness, Denies paralysis, Denies paresthesias, Denies seizures Psychiatric: Denies anxiety, Denies depression Endocrine: Denies excessive sweating, Denies excessive thirst, Denies high blood sugars, Denies palpitations Hematologic/Lymphatic: Denies easy bruising, Denies lymphadenopathy Social history Former smoker started smoking age and now for 14 quit in August 2020 smoke 1 pack a day. Denies drinking or marijuana use Family history Mother had breast and bladder cancer and lung cancer Father had pancreatic cancer Lives by herself Physical exam - Constitutional General appearance: cooperative, no acute distress, thin-appearing - EENT Eyes: anicteric sclerae, PERRLA, normal appearance ENT: hearing grossly normal - Neck Neck: no lymphadenopathy, normal ROM, no other, no rigidity, no stridor, no thyromegaly - Respiratory Respiratory: bilateral: Decreased air entry bilaterally no crackles and no wheezes- Cardiovascular Rhythm: regular Heart sounds: normal: S1, S2 Abnormal Heart Sounds: 3/6 systolic murmur, no diastolic murmur, no rub, no S3 Gallop, no S4 Gallop, no click, no other - Gastrointestinal General gastrointestinal: normal bowel sounds, soft tender in the epigastric region - Integumentary Integumentary: Graft in the left upper arm nonfunctioning no thrill palpated - Neurologic Neurologic: No sensorimotor deficit - Musculoskeletal Musculoskeletal: gait normal, strength equal bilaterally - Psychiatric Psychiatric: A&O x's 3, appropriate affect Assessment and plan #1 left upper extremity AV graft occlusion with plan for open thrombectomy, fistulogram and balloon angioplasty of basilic vein outflow tract with Dr. Estrada. With possible tunneled catheter placement tomorrow if thrombectomy could not be performed. The surgery and nephrology consulted #2 shortness of breath with hypoxia secondary to volume overload from missing dialysis session. CHF exacerbation cannot be ruled out. No echocardiogram to compare. Will order echocardiogram to assess patient's cardiac function. #3End-stage renal disease on hemodialysis on Friday and Friday. Plan for dialysis tomorrow. Consult nephrology continuously that 60 mg by mouth with supper continue Lasix 80 twice a day continue Renvela 3200 mg 3 times a day #4 history of congestive heart failure unknown systolic or diastolic. Continue Coreg 12.5 twice a day continue isosorbide dinitrate #5 history of asthma/ COPD continue DuoNeb not in exacerbation continue Trilogy elliptical twice a day #6 history of depression continue amitriptyline #7 history of hypertension continue amlodipine, continue clonidine 0.1 3 times a day continue hydralazine 25 twice a day #8 history of lupus nephritis continue Plaquenil 200 twice a day #9 history of restless leg syndrome continue Requip 2 mg 3 times a day #10 code status full code 11 DVT prophylaxis with SCDs #12 disposition pt need 1 - 2 inpatient night for stablization Past Medical History Past Medical History: Asthma, Heart Failure, COPD, Dialysis, Fibromyalgia, GERD/Reflux, Hypertension, Renal Disease, Rheumatoid Arthritis (RA), Skin Disorder Additional Past Medical History / Comment(s): migraines, anemia, lupus, stage 5 renal failure, hemodialysis MOWEFR, vasculitis autoimmune disorder, glaucoma, hx ulcer, IBS, SOB with activity, restless leg, psoriasis History of Any Multi-Drug Resistant Organisms: None Reported Past Surgical History: Section Additional Past Surgical History / Comment(s): "port in chest"/removed, C/S x 3, cold knife conization, fistula left arm for hemodialysis, peritoneal dialysis catheter, PERITONEAL CATHETER REMOVED Past Anesthesia/Blood Transfusion Reactions: Family History of Problems w/ Anesthesia, Motion Sickness Additional Past Anesthesia/Blood Transfusion Reaction / Comment(s): slow to wake up after last procedure, mother PONV Past Psychological History: Anxiety Smoking Status: Former smoker Past Alcohol Use History: None Reported Past Drug Use History: None Reported - Past Family History Mother Family Medical History: Cancer Additional Family Medical History / Comment(s): breast/ bladder and lung CA Father Family Medical History: Cancer Additional Family Medical History / Comment(s): pancreatic cancer Medications and Allergies Home Medications Medication Instructions Recorded Confirmed Type Folic Acid-Vit B Complex-Vit C 1 mg PO DAILY 12/06/19 11/15/20 History [Nephrocaps] amLODIPine [Norvasc] 10 mg PO DAILY 12/06/19 11/15/20 History Albuterol Inhaler [Ventolin Hfa 2 puff INHALATION RT-Q4H PRN 08/10/20 11/15/20 History Inhaler] Cinacalcet HCl [Sensipar] 60 mg PO W/SUPPER 08/10/20 11/15/20 History Hydroxychloroquine Sulfate 200 mg PO BID 08/10/20 11/15/20 History [Plaquenil] Amitriptyline HCl [Elavil] 10 mg PO HS 09/14/20 11/15/20 History Carvedilol [Coreg] 12.5 mg PO BID 09/14/20 11/15/20 History Fluticasone/Umeclidin/Vilanter 1 puff INHALATION RT-BID 09/14/20 11/15/20 History [Trelegy Ellipta 100-62.5-25] Furosemide [Lasix] 80 mg PO BID 09/14/20 11/15/20 History Isosorbide Dinitrate [Isordil] 10 mg PO Q8H 09/14/20 11/15/20 History Lactulose [Constulose] 20 gm PO BID PRN 09/14/20 11/15/20 History Lidocaine-Prilocaine Cream [Emla 1 applic TOPICAL DIRECTED PRN 09/14/20 11/15/20 History Cream 2.5%/2.5%] Sevelamer [Renvela] 3,200 mg PO TID 09/14/20 11/15/20 History cloNIDine HCL [Catapres] 0.1 mg PO TID 09/14/20 11/15/20 History hydrALAZINE HCL [Apresoline] 100 mg PO TID 09/14/20 11/15/20 History rOPINIRole HCL [Requip] 2 mg PO TID 09/14/20 11/15/20 History Auryxia 840 mg PO TID 11/15/20 11/15/20 History Allergies Allergy/AdvReac Type Severity Reaction Status Date / Time Iodinated Contrast Media Allergy Severe stopped Verified 11/15/20 11:02 breathing aspirin Allergy Swelling/hi Verified 11/15/20 11:02 ves Penicillins Allergy Dyspnea Verified 11/15/20 11:02 sulfamethoxazole Allergy Dyspnea Verified 11/15/20 11:02 [From Bactrim] trimethoprim [From Bactrim] Allergy Dyspnea Verified 11/15/20 11:02 Physical Exam Vitals: Vital Signs Temp Pulse Resp BP Pulse Ox 11/15/20 14:00 88 22 155/100 93 L 11/15/20 13:00 98 20 158/98 99 11/15/20 12:00 88 18 158/100 93 L 11/15/20 11:15 87 20 144/105 92 L 11/15/20 10:11 97.9 F 86 18 150/85 95 Intake and Output 11/14/20 11/15/20 11/15/20 22:59 06:59 14:59 Other: Weight 52.163 kg Results CBC & Chem 7: 11/15/20 11:29 11/15/20 11:29 Labs: Abnormal Lab Results - Last 24 Hours (Table) 11/15/20 11/15/20 Range/Units 11:29 11:29 RBC 2.93 L (3.80-5.40) m/uL Hgb 10.4 L (11.4-16.0) gm/dL Hct 31.3 L (34.0-46.0) % MCV 106.8 H D (80.0-100.0) fL MCH 35.3 H (25.0-35.0) pg Plt Count 111 L (150-450) k/uL Lymphocytes # 0.6 L (1.0-4.8) k/uL BUN 49 H (7-17) mg/dL Creatinine 6.15 H (0.52-1.04) mg/dL
[2020-11-15] MEDS: FOLIC ACID-VIT B COMPLEX-VIT C 1 CAP PO SCH (16:46)
[2020-11-15] MEDS: AURYXIA PO SCH ×2 (16:47→21:45)
[2020-11-15] MEDS: hydrALAZINE HCL 50 MG TAB PO SCH ×2 (16:48→21:44)
[2020-11-15] MEDS: cloNIDine HCL 0.1 MG TAB PO SCH ×2 (16:48→21:44)
[2020-11-15] MEDS: ISOSORBIDE DINITRATE 10 MG TAB PO SCH ×2 (16:49→23:06)
[2020-11-15] MEDS: carvediloL 12.5 MG TAB PO SCH (16:50)
[2020-11-15] MEDS: SEVELAMER 800 MG TAB PO SCH (16:50)
[2020-11-15] MEDS: CINACALCET 30 MG TAB PO SCH (16:51)
[2020-11-15 18:25] LABS: HCT 28.7 % (34.0-46.0); HGB 9.8 gm/dL (11.4-16.0); MCH 37.1 pg (25.0-35.0); MCHC 34.2 g/dL (31.0-37.0); MCV 108.4 fL (80.0-100.0); Macrocytosis Moderate; Mean Platelet Volume 7.4; Platelet Count 105 k/uL (150-450); RBC 2.65 m/uL (3.80-5.40); RDW 13.6 % (11.5-15.5); WBC 4.4 k/uL (3.8-10.6)
[2020-11-15] MEDS: ALPRAZolam 0.25 MG TAB PO SCH ×2 (19:25→23:05)
[2020-11-15] MEDS ORDERED: NON FORMULARY DRUG (Fluticasone/Umeclidin/Vilanter [Trelegy Ellipta 100-62.5-25] 1 EACH Bl INHALATION SCH (20:00)
[2020-11-15] MEDS: IPRATROPIUM 0.5 MG/2.5 ML NEBU INHALATION SCH (20:44)
[2020-11-15] MEDS: SYMBICORT 80-4.5 MCG INHALER INHALATION SCH (20:44)
[2020-11-15] MEDS ORDERED: FUROSEMIDE 80 MG TAB PO SCH (21:00)
[2020-11-15] MEDS: HYDROXYCHLOROQUINE SULFATE 200 MG TAB PO SCH (21:44)
[2020-11-15] MEDS: AMITRIPTYLINE HCL 10 MG TAB PO SCH (21:44)
[2020-11-15] MEDS: FUROSEMIDE 10 MG/ML 4 ML VIAL IV SCH (21:45)
[2020-11-16 06:42] LABS: HCT 30.6 % (34.0-46.0); HGB 10.4 gm/dL (11.4-16.0); MCH 36.8 pg (25.0-35.0); MCHC 33.9 g/dL (31.0-37.0); MCV 108.5 fL (80.0-100.0); Macrocytosis Moderate; Mean Platelet Volume 7.6; Platelet Count 113 k/uL (150-450); RBC 2.82 m/uL (3.80-5.40); RDW 13.3 % (11.5-15.5); WBC 5.5 k/uL (3.8-10.6)
[2020-11-16 07:27] LABS: African American GFR (CKD) 7 (>60 ml/min/1.73 sqM); Anion Gap 14 mmol/L; Blood Urea Nitrogen 60 mg/dL (7-17); Calcium 9.7 mg/dL (8.4-10.2); Carbon Dioxide 25 mmol/L (22-30); Chloride 99 mmol/L (98-107); Glucose 98 mg/dL (74-99); Non-African American GFR(CKD) 6 (>60 ml/min/1.73 sqM); Potassium 5.6 mmol/L (3.5-5.1); Sodium 138 mmol/L (137-145)
[2020-11-16] MEDS: IPRATROPIUM 0.5 MG/2.5 ML NEBU INHALATION SCH ×4 (08:31→19:48)
[2020-11-16] MEDS: SYMBICORT 80-4.5 MCG INHALER INHALATION SCH ×2 (08:32→19:48)
--- NOTE | 2020-11-16 08:43 | XR ---
EXAMINATION TYPE: XR chest 1V portable DATE OF EXAM: 11/16/2020 Comparison: 11/15/2020 Clinical History: 50 year-old female shortness of breath, difficulty breathing, assess for fluid over load Findings: Heart is enlarged. Hyperinflation. Diffuse interstitial opacity persists. Small bilateral pleural eff usions and Jess B lines and patchy bibasilar opacities also persist. Opacities may be slightly incr eased at the right base. Impression: COPD with superimposed CHF with continued interstitial pulmonary edema. Also, continued small pleural effusions. Aeration slightly worsened now at the right base.
[2020-11-16] MEDS: amLODIPine 10 MG TAB PO SCH (08:55)
[2020-11-16] MEDS: ALPRAZolam 0.25 MG TAB PO SCH ×3 (08:56→22:36)
[2020-11-16] MEDS: carvediloL 12.5 MG TAB PO SCH ×2 (08:56→19:07)
[2020-11-16] MEDS: FUROSEMIDE 10 MG/ML 4 ML VIAL IV SCH ×2 (08:57→22:36)
[2020-11-16] MEDS: ISOSORBIDE DINITRATE 10 MG TAB PO SCH ×3 (08:58→22:46)
[2020-11-16] MEDS: cloNIDine HCL 0.1 MG TAB PO SCH ×3 (08:58→22:37)
[2020-11-16] MEDS: hydrALAZINE HCL 50 MG TAB PO SCH ×3 (08:59→22:36)
[2020-11-16] MEDS: SEVELAMER 800 MG TAB PO SCH ×3 (09:00→21:44)
--- NOTE | 2020-11-16 09:03 | P.NPCON ---
History of Present Illness - Reason for Consult end stage renal disease - History of Present Illness Reason for consultation: End-stage renal disease History of present illness: Patient is a 50-year-old female seen in renal consultation for end-stage renal disease. She is maintained on hemodialysis on Friday schedule. Patient went to hemodialysis yesterday but her access was clotted and she was sent to the hospital. Vascular surgery is following and she scheduled for intervention today. Patient is complaining of shortness of breath. Chest x-ray is suggestive of fluid overload. She is currently on 4 L nasal cannula. No vomiting or diarrhea. No fever or chills. No abdominal pain but does admit to fluid buildup in her abdomen. No edema in her lower extremity. Vital signs are stable. General: The patient appeared well nourished and normally developed. HEENT: Head exam is unremarkable. LUNGS: Breath sounds decreased. HEART: Rate and Rhythm are regular. ABDOMEN: Soft, mild distention noted. EXTREMITITES: No edema. Past Medical History Past Medical History: Asthma, Heart Failure, COPD, Dialysis, Fibromyalgia, GERD/Reflux, Hypertension, Renal Disease, Rheumatoid Arthritis (RA), Skin Disorder Additional Past Medical History / Comment(s): migraines, anemia, lupus, stage 5 renal failure, hemodialysis MOWEFR, vasculitis autoimmune disorder, glaucoma, hx ulcer, IBS, SOB with activity, restless leg, psoriasis History of Any Multi-Drug Resistant Organisms: None Reported Past Surgical History: Section Additional Past Surgical History / Comment(s): "port in chest"/removed, C/S x 3, cold knife conization, fistula left arm for hemodialysis, peritoneal dialysis catheter, PERITONEAL CATHETER REMOVED Past Anesthesia/Blood Transfusion Reactions: Family History of Problems w/ Anesthesia, Motion Sickness Additional Past Anesthesia/Blood Transfusion Reaction / Comment(s): slow to wake up after last procedure, mother PONV Past Psychological History: Anxiety Smoking Status: Former smoker Past Alcohol Use History: None Reported Additional Past Alcohol Use History / Comment(s): started smoking age 14, QUIT 08/2020 . SMOKED 1 PPD Past Drug Use History: None Reported - Past Family History Mother Family Medical History: Cancer Additional Family Medical History / Comment(s): breast/ bladder and lung CA Father Family Medical History: Cancer Additional Family Medical History / Comment(s): pancreatic cancer Medications and Allergies Home Medications Medication Instructions Recorded Confirmed Type Folic Acid-Vit B Complex-Vit C 1 mg PO DAILY 12/06/19 11/15/20 History [Nephrocaps] amLODIPine [Norvasc] 10 mg PO DAILY 12/06/19 11/15/20 History Albuterol Inhaler [Ventolin Hfa 2 puff INHALATION RT-Q4H PRN 08/10/20 11/15/20 History Inhaler] Cinacalcet HCl [Sensipar] 60 mg PO W/SUPPER 08/10/20 11/15/20 History Hydroxychloroquine Sulfate 200 mg PO BID 08/10/20 11/15/20 History [Plaquenil] Amitriptyline HCl [Elavil] 10 mg PO HS 09/14/20 11/15/20 History Carvedilol [Coreg] 12.5 mg PO BID 09/14/20 11/15/20 History Fluticasone/Umeclidin/Vilanter 1 puff INHALATION RT-BID 09/14/20 11/15/20 History [Trelegy Ellipta 100-62.5-25] Furosemide [Lasix] 80 mg PO BID 09/14/20 11/15/20 History Isosorbide Dinitrate [Isordil] 10 mg PO Q8H 09/14/20 11/15/20 History Lactulose [Constulose] 20 gm PO BID PRN 09/14/20 11/15/20 History Lidocaine-Prilocaine Cream [Emla 1 applic TOPICAL DIRECTED PRN 09/14/20 11/15/20 History Cream 2.5%/2.5%] Sevelamer [Renvela] 3,200 mg PO TID 09/14/20 11/15/20 History cloNIDine HCL [Catapres] 0.1 mg PO TID 09/14/20 11/15/20 History hydrALAZINE HCL [Apresoline] 100 mg PO TID 09/14/20 11/15/20 History rOPINIRole HCL [Requip] 2 mg PO TID 09/14/20 11/15/20 History Auryxia 840 mg PO TID 11/15/20 11/15/20 History Allergies Allergy/AdvReac Type Severity Reaction Status Date / Time Iodinated Contrast Media Allergy Severe stopped Verified 11/15/20 11:02 breathing aspirin Allergy Swelling/hi Verified 11/15/20 11:02 ves Penicillins Allergy Dyspnea Verified 11/15/20 11:02 sulfamethoxazole Allergy Dyspnea Verified 11/15/20 11:02 [From Bactrim] trimethoprim [From Bactrim] Allergy Dyspnea Verified 11/15/20 11:02 Physical Exam Vitals: Vital Signs Temp Pulse Pulse Resp BP BP Pulse Ox 11/16/20 08:45 90 L 11/16/20 08:44 107 H 22 11/16/20 08:32 110 H 22 11/16/20 01:51 97.6 F 99 18 162/116 93 L 11/15/20 20:59 96 11/15/20 20:45 92 94 L 11/15/20 20:00 93 17 11/15/20 19:10 98.1 F 93 17 155/98 92 L 11/15/20 17:55 98.3 F 89 22 155/98 94 L 11/15/20 16:53 101 H 22 160/98 92 L 11/15/20 16:00 81 20 156/99 91 L 11/15/20 14:53 26 H 91 L 11/15/20 14:00 88 22 155/100 93 L 11/15/20 13:00 98 20 158/98 99 11/15/20 12:00 88 18 158/100 93 L 11/15/20 11:15 87 20 144/105 92 L 11/15/20 10:11 97.9 F 86 18 150/85 95 Intake and Output 11/15/20 11/16/20 11/16/20 22:59 06:59 14:59 Other: Voiding Method Toilet Weight 52.163 kg 55.2 kg Results - Lab Results Most recent lab results Calcium 9.7 mg/dL (8.4-10.2) 11/16/20 06:33 11/16/20 06:33 11/16/20 06:33 Assessment and Plan Plan: Assessment: 1. End-stage renal disease maintained on hemodialysis on Friday schedule. 2. Clotted AV fistula. 3. Hypertension with chronic kidney disease. 4. Volume overload. 5. Chronic kidney disease mineral bone disease maintained on Sensipar and Renvela. 6. Mild hyperkalemia secondary to chronic kidney disease. Plan: Hemodialysis today. I contacted vascular surgery for intervention so she can be dialyzed MONIK. Home blood pressure meds resumed. Patient makes minimal urine. Thank you for the consultation. I will continue to follow the patient with you during her hospital stay.
[2020-11-16] MEDS: AURYXIA PO SCH ×3 (10:34→22:41)
[2020-11-16] MEDS ORDERED: SODIUM CHLORIDE 0.9% 1,000 ML IV ONE ×2 (11:30)
[2020-11-16] MEDS ORDERED: ONDANSETRON 4 MG/2 ML VIAL ONE (12:00)
[2020-11-16] MEDS ORDERED: DEXAMETHASONE SOD PHOSPHATE 4 MG/ML 1 ML VIAL IVP ONE (12:02)
[2020-11-16] MEDS ORDERED: fentaNYL (PF) 50 MCG/ML 2 ML AMP IVP ONE (12:02)
[2020-11-16] MEDS ORDERED: ONDANSETRON 4 MG/2 ML VIAL IVP ONE (12:03)
--- NOTE | 2020-11-16 12:39 | P.PN ---
Subjective Progress Note Date: 11/16/20 History of present illness 50 years old female with past medical history of asthma, congestive h eart failure not known systolic or diastolic( patient reports eating EF of 40%), COPD, end-stage renal disease on hemodialysis Friday and Friday from lupus, hypertension, rheumatoid arthritis, history of lupus, vasculitis or autoimmune disorder, history of IBS, restless leg comes in with left upper extremity AV graft occlusion. Patient had the left it's upper extremity loop AV graft placed by Dr. Tran on 07/20/2019 followed by a fistulogram for a malfunctioning AV graft with no evidence of inflow or outflow stenosis or externalization by Dr. Tran in December 2019. Patient had a peritoneal catheter placed in May 2020 which was removed on for malfunctioning and patient was placed back on hemodialysis. Patient was seen by Dr. Crawford on 08/08/2020 for pain involving the medial aspect of her graft. She was noted to have thrombosis of the subclavian vein with some stenosis and widely patent AV graft noted on left upper extremity ultrasound but patient was admitted with AV graft occlusion prior to the scheduled procedure on 09/14 and underwent open thrombectomy, fistulogram and balloon angioplasty of left lower vein outflow by Dr. Estrada. Patient had a normal dialysis session on Friday but was noted to be volume overload. She went for dialysis session today but could not get dialysis due to malfunctioning of her graft. She is very short of breath on assessment and complains of epigastric pain. Patient denies any cough, chest pain, diarrhea or nausea or vomiting. Patient noted to have shortness of breath saturating at 90-92% requiring 2 L of oxygen in the ER She denied any pain in the left upper extremity or swelling. Vitals reviewed tamara ent is afebrile pulse 88 respiratory rate 22 blood pressure 155/100 . Lab reviewed patient is a hemoglobin 10.4 platelet 111 WBC 4.4 creatinine 6.15 nightly 49 sodium 138 potassium 4.7 proBNP is 23,000. One dose of Lasix in the ER. Nephrology and vascular surgery consulted for open thrombectomy. 11/16: Patient has been seen by nephrology for end-stage renal disease on hemodialysis Friday schedule with anticipation of starting hemodialysis today. Vascular surgery is on consult with plan for tunneled dialysis catheter today. Patient has had decline of her condition overnight with increasing weakness and fatigue, hypoxia requiring transition from room air to 4 L nasal cannula and now to Ventimask with pulse ox of 89% with Ventimask at 50%. Chest x-ray this morning reveals COPD with superimposed heart failure with continued interstitial pulmonary edema. Small pleural effusions. Aeration slightly worse at the right base. Patient has been afebrile, heart rate in the 90s, blood pressure 155/97. Plan is for tunneled dialysis catheter today and start hemodialysis immediately. ROS Constitutional: Denies chills, Denies fever, reports lethargy, reports malaise, Denies poor appetite, reports weakness, Denies weight loss Eyes: denies decreased vision, denies diplopia, denies discharge, denies pain Ears: deny: decreased hearing Ears, nose, mouth and throat: Denies dental pain, Denies headache, Denies nasal discharge, Denies nose pain Cardiovascular: Denies chest pain, reports decreased exercise tolerance, Denies edema, Denies high blood pressure, Denies irregular heart beat, Denies palpitations, Denies paroxysmal nocturnal dyspnea, Denies rapid heart beat, reports shortness of breath Respiratory: Denies congestion, Denies cough, Denies cough with sputum, endorses dyspnea, patient wears oxygen while getting dialysis session, Denies wheezing Gastrointestinal: Endorses abdominal pain, Denies change in bowel habits, Denies coffee ground emesis, Denies early satiety, Denies excessive gas, Denies heartburn, Denies hematemesis, Denies hematochezia, Denies loss of appetite, Denies nausea, Denies vomiting Genitourinary: Denies dysuria, Denies flank pain, Denies kidney stones, Denies menorrhagia, Denies urgency, Denies urinary frequency Musculoskeletal: Denies gait dysfunction, Denies limitation of motion, Denies morning stiffness, Denies muscle cramps Integumentary: Denies rash, Denies wounds, Denies brittle nails, Denies change in hair/nails, Denies darkening of skin Neurological: Denies balance difficulties, Denies change in speech, Denies double vision, Denies gait dysfunction, Denies loss of vision, Denies motor di sturbance, Denies numbness, Denies paralysis, Denies paresthesias, Denies seizures Psychiatric: Denies anxiety, Denies depression Endocrine: Denies excessive sweating, Denies excessive thirst, Denies high blood sugars, Denies palpitations Hematologic/Lymphatic: Denies easy bruising, Denies lymphadenopathy Physical exam - Constitutional General appearance: cooperative, mild acute distress, thin-appearing - EENT Eyes: anicteric sclerae, PERRLA, normal appearance ENT: hearing grossly normal - Neck Neck: no lymphadenopathy, normal ROM, no other, no rigidity, no stridor, no thyromegaly - Respiratory Respiratory: bilateral: Decreased air entry bilaterally no crackles and no wheezes- Cardiovascular Rhythm: regular Heart sounds: normal: S1, S2 Abnormal Heart Sounds: 3/6 systolic murmur, no diastolic murmur, no rub, no S3 Gallop, no S4 Gallop, no click, no other - Gastrointestinal General gastrointestinal: normal bowel sounds, soft tender in the epigastric region - Integumentary Integumentary: Graft in the left upper arm nonfunctioning no thrill palpated - Neurologic Neurologic: No sensorimotor deficit - Musculoskeletal Musculoskeletal: gait normal, strength equal bilaterally - Psychiatric Psychiatric: A&O x's 3, appropriate affect Assessment and plan #1 left upper extremity AV graft occlusion with plan for open thrombectomy, tunneled dialysis catheter with vascular surgery. Vascular surgery and nephrology consulted #2 shortness of breath with hypoxia secondary to volume overload from missing dialysis session. CHF exacerbation cannot be ruled out. No echocardiogram to compare. Will order echocardiogram to assess patient's cardiac function. #3 End-stage renal disease on hemodialysis on Friday and Friday. Plan for dialysis todayw. Consult nephrology, continue Lasix 80 twice a day continue Renvela 3200 mg 3 times a day #4 history of congestive heart failure unknown systolic or diastolic. Continue Coreg 12.5 twice a day continue isosorbide dinitrate #5 history of asthma/ COPD continue DuoNeb , Symbicort twice daily #6 recurrent depression continue amitriptyline #7 hypertension continue amlodipine, continue clonidine 0.1 3 times a day cont inue hydralazine 25 twice a day #8 history of lupus nephritis continue Plaquenil 200 twice a day #9 history of restless leg syndrome continue Requip 2 mg 3 times a day #10 code status full code 11 DVT prophylaxis with SCDs DISCHARGE PLAN Home Impression and plan of care have been directed as dictated by the signing physician. Yumiko Olguin nurse practitioner acting as scribe for signing phys ician. Objective - Vital Signs Vital signs: Vital Signs Temp 97.6 F 11/16/20 01:51 Pulse 107 H 11/16/20 08:44 Resp 22 11/16/20 08:44 BP 162/116 11/16/20 01:51 Pulse Ox 90 L 11/16/20 08:45 Intake & Output 11/15/20 11/16/20 11/16/20 18:59 06:59 18:59 Weight 52.163 kg 55.2 kg Other: Voiding Method Toilet - Labs CBC & Chem 7: 11/16/20 06:33 11/16/20 06:33 Labs: Abnormal Lab Results - Last 24 Hours (Table) 11/15/20 11/15/20 11/15/20 Range/Units 11:29 11:29 18:18 RBC 2.93 L 2.65 L (3.80-5.40) m/uL Hgb 10.4 L 9.8 L (11.4-16.0) gm/dL Hct 31.3 L 28.7 L (34.0-46.0) % MCV 106.8 H D 108.4 H (80.0-100.0) fL MCH 35.3 H 37.1 H (25.0-35.0) pg Plt Count 111 L 105 L (150-450) k/uL Lymphocytes # 0.6 L (1.0-4.8) k/uL Potassium (3.5-5.1) mmol/L BUN 49 H (7-17) mg/dL Creatinine 6.15 H (0.52-1.04) mg/dL 11/16/20 11/16/20 Range/Units 06:33 06:33 RBC 2.82 L (3.80-5.40) m/uL Hgb 10.4 L (11.4-16.0) gm/dL Hct 30.6 L (34.0-46.0) % MCV 108.5 H (80.0-100.0) fL MCH 36.8 H (25.0-35.0) pg Plt Count 113 L (150-450) k/uL Lymphocytes # (1.0-4.8) k/uL Potassium 5.6 H (3.5-5.1) mmol/L BUN 60 H (7-17) mg/dL Creatinine 7.31 H* (0.52-1.04) mg/dL
[2020-11-16] MEDS ORDERED: PROPOFOL 10 MG/ML 20 ML VIAL IV ONE (12:55)
[2020-11-16] MEDS ORDERED: MIDAZOLAM 2 MG/2 ML VIAL ONE (12:55)
[2020-11-16] MEDS ORDERED: KETAMINE 10 MG/ML 20 ML VIAL ONE (12:55)
[2020-11-16] MEDS ORDERED: SODIUM CHLORIDE 0.9% 50 ML with CLINDAMYCIN 600 MG IV ONE ×2 (12:59)
[2020-11-16] MEDS ORDERED: LIDOCAINE 2% (PF) 20 MG/ML 2 ML VIAL SQ ONE ×2 (13:26)
[2020-11-16] MEDS: HYDROXYCHLOROQUINE SULFATE 200 MG TAB PO SCH ×2 (13:36→21:46)
[2020-11-16] MEDS: FOLIC ACID-VIT B COMPLEX-VIT C 1 CAP PO SCH (13:36)
--- NOTE | 2020-11-16 13:56 | P.PN ---
Subjective Progress Note Date: 11/16/20 Seen and examined at the bedside with Dr. Harevy. She is having increased shortness of breath. She is scheduled for tunnel dialysis catheter today with orders to follow with hemodialysis. Oxygen saturation has been between 90 and 94% on 4 L nasal cannula. Objective - Vital Signs Vital signs: Vital Signs Temp 97.8 F 11/16/20 09:00 Pulse 90 11/16/20 10:40 Resp 20 11/16/20 09:00 BP 151/88 11/16/20 10:40 Pulse Ox 91 L 11/16/20 10:40 Intake & Output 11/15/20 11/16/20 11/16/20 18:59 06:59 18:59 Weight 52.163 kg 55.2 kg Other: Voiding Method Toilet - Exam General appearance: The patient is alert, oriented, appears well nourished. HET: Head is normocephalic and atraumatic. Pupils are equal and reactive. Neck: Supple without lymphadenopathy. Trachea midline. Heart: S1 S2. Regular rate and rhythm. Lungs: Decreased breath sounds bilaterally with bilateral expiratory wheezes. Extremities: Normal skin color and turgor. No cyanosis, rash, ulceration, clubbing, or edema. Radial pulses +2 bilaterally. No bruit or thrill and left upper extremity loop graft. Neurological: No focal deficits. Alert and orientated. - Labs CBC & Chem 7: 11/16/20 06:33 11/16/20 06:33 Labs: Abnormal Lab Results - Last 24 Hours (Table) 11/15/20 11/15/20 11/15/20 Range/Units 11:29 11:29 18:18 RBC 2.93 L 2.65 L (3.80-5.40) m/uL Hgb 10.4 L 9.8 L (11.4-16.0) gm/dL Hct 31.3 L 28.7 L (34.0-46.0) % MCV 106.8 H D 108.4 H (80.0-100.0) fL MCH 35.3 H 37.1 H (25.0-35.0) pg Plt Count 111 L 105 L (150-450) k/uL Lymphocytes # 0.6 L (1.0-4.8) k/uL Potassium (3.5-5.1) mmol/L BUN 49 H (7-17) mg/dL Creatinine 6.15 H (0.52-1.04) mg/dL 11/16/20 11/16/20 Range/Units 06:33 06:33 RBC 2.82 L (3.80-5.40) m/uL Hgb 10.4 L (11.4-16.0) gm/dL Hct 30.6 L (34.0-46.0) % MCV 108.5 H (80.0-100.0) fL MCH 36.8 H (25.0-35.0) pg Plt Count 113 L (150-450) k/uL Lymphocytes # (1.0-4.8) k/uL Potassium 5.6 H (3.5-5.1) mmol/L BUN 60 H (7-17) mg/dL Creatinine 7.31 H* (0.52-1.04) mg/dL Assessment and Plan Assessment: 1. Left upper extremity AV graft occlusion 2. End-stage renal disease on hemodialysis 3. History of asthma 4. History of heart failure 5. History of COPD Plan: 1. NPO 2. Patient will be scheduled for left upper extremity open thrombectomy, possible fistulogram, possible tunneled dialysis catheter tomorrow with Dr. Bell 3. Continue medical management per primary medicine team 4. Hemodialysis per recommendations from nephrology Thank you for this consultation. The impression and plan of care has been dictated as directed. Dr. Bell I performed a history and examination of this patient, discussed the same with the dictator. I agree with the dictator's note,documented as a scribe. Any additional findings or plans will be noted.
--- NOTE | 2020-11-16 13:58 | P.OP ---
Date of Procedure: 11/16/20 Preoperative Diagnosis: #1: Chronic renal failure. #2: Nonfunctioning left upper extremity AV dialysis graft. Postoperative Diagnosis: Same. Procedure(s) Performed: #1: Ultrasound-guided cannulation left internal jugular vein. #2: Placement of tunneled hemodialysis catheter via left internal jugular vein with fluoroscopic guidance. Anesthesia: local (With IV sedation.) Surgeon: Hiren Bell Estimated Blood Loss (ml): 5 Urine output (ml): 0 Pathology: none sent Condition: stable Disposition: no change Indications for Procedure: Patient is a 50-year-old female with long-standing history of chronic renal failure requiring hemodialysis. Difficulty has been experiencing recently utilizing her graft. The patient is in need of more urgent hemodialysis and patient is now offered placement of a tunneled hemodialysis catheter. The procedure, risk and benefits were discussed. Patient wished to proceed. Description of Procedure: Patient was brought to the operating room and placed in the head up supine position as her respiratory status would not allow her to lay completely supine. She was administered attended anesthesia delivered by the department of anesthesiology. The patient received 600 mg of clindamycin in the perioperative phase for prophylactic antibiotic therapy. The patient was sterilely prepped and draped in usual manner Utilizing ultrasound the right internal jugular vein was identified. 1% Xylocaine was utilized for local anesthesia of tissues overlying the internal jugular vein. Through this anesthetized area and with the aid of ultrasound a multipurpose needle was utilized to cannulate the vein. Once cannulated Softip guidewire is advanced through the needle however could only be advanced proximally a 10 cm at which point the wire would not pass. Multiple additional attempts were made with similar findings and it is assumed that the right innominate vein is either significant filling narrowed or thrombosed. Attention was turned to the left internal jugular vein. 1% Xylocaine was lysed local anesthesia tissues overlying the left internal jugular vein. Through this anesthetized area a multipurpose needle was utilized to cannulate the vein with ultrasound guidance. Once cannulated Softip guidewire is advanced into the superior vena cava without difficulty. Its position was confirmed with fluoroscopy. The needle was withdrawn. Xylocaine was utilized for local anesthesia tissues one finger breath below the angle of clavicle. Through this anesthetized area skin incision was made. A tunneled hemodialysis catheter was then passed between the chest and neck inci sions in the subcutaneous plane. Vascular dilators were advanced over the guidewire and withdrawn. Finally the catheter to dilator and sheath were advanced over the guidewire. Guidewire and dilator were withdrawn and the catheter advanced through the sheath and the sheath was peeled away. Fluoroscopy demonstrated catheter being good position. Both ports withdrew blood easily and then were flushed with appropriate heparinized saline solution. Caps were applied. The catheter secured to the skin with nylon suture and the neck incision was closed with 4-0 Monocryl placed in the intradermal plane. Proper dressings were applied. Patient tolerated procedure well and was taken to the recovery area satisfactory and stable condition. A chest x-ray will be obtained to rule out the possibili ty of a pneumothorax. Nephrology was notified that the patient's catheter was in place and the patient could be dialyzed via this catheter.
--- NOTE | 2020-11-16 14:10 | FL ---
EXAMINATION TYPE: FL guided central line placemt DATE OF EXAM: 11/16/2020 CLINICAL HISTORY: Failed dialysis. TECHNIQUE: Fluoroscopy. COMPARISON: None. FINDINGS: Fluoroscopic guidance was provided during left-sided central venous access procedure perfo rmed by Dr. Harvey. A total of 10 seconds of fluoroscopic time was utilized during the procedure a nd 1 spot images was acquired. Single image acquired shows a catheter overlying left upper chest inco mpletely imaged. IMPRESSION: As Above.
--- NOTE | 2020-11-16 14:37 | XR ---
EXAMINATION TYPE: XR chest 1V portable DATE OF EXAM: 11/16/2020 CLINICAL HISTORY: Catheter inserted for dialysis. TECHNIQUE: Single AP portable semiupright view of the chest is obtained. COMPARISON: Chest x-ray from earlier today FINDINGS: New large bore left internal jugular central venous catheter terminates in right atrium. Persistent cardiomegaly with atherosclerotic thoracic aorta and small bilateral pleural effusions. As sociated bibasilar opacities favoring compressive atelectasis. [id number] interstitial prominen ce bilaterally redemonstrated favoring edema. Underlying slight scoliotic curvature redemonstrated. IMPRESSION: No pneumothorax after left sided dialysis catheter insertion.
[2020-11-16] MEDS: IPRATROPIUM-ALBUTEROL 3 ML NEB INHALATION PRN (16:13)
[2020-11-16] MEDS: ACETAMINOPHEN TAB 325 MG TAB PO PRN (18:24)
[2020-11-16 19:06] LABS: INR 1.1 (<1.2); Prothrombin Time 11.5 sec (9.0-12.0)
[2020-11-16] MEDS: CINACALCET 30 MG TAB PO SCH (19:07)
[2020-11-16] MEDS: MORPHINE SULFATE 2 MG/ML SYRINGE IVP PRN (20:00)
[2020-11-16] MEDS: AMITRIPTYLINE HCL 10 MG TAB PO SCH (21:49)
[2020-11-17] MEDS: MORPHINE SULFATE 2 MG/ML SYRINGE IVP PRN (07:32)
[2020-11-17] MEDS ORDERED: DESMOPRESSIN ACETATE 16 MCG in SODIUM CHLORIDE 0.9% 50 ML IVPB ONE (08:00)
[2020-11-17] MEDS: ISOSORBIDE DINITRATE 10 MG TAB PO SCH ×2 (08:31→15:32)
[2020-11-17] MEDS: cloNIDine HCL 0.1 MG TAB PO SCH ×3 (08:32→22:08)
[2020-11-17] MEDS: AURYXIA PO SCH ×3 (08:32→23:12)
[2020-11-17] MEDS ORDERED: HYDROmorphone 0.5 MG/0.5 ML SYRINGE IVP PRN (08:49)
[2020-11-17] MEDS: ALPRAZolam 0.25 MG TAB PO SCH ×2 (08:53→18:35)
[2020-11-17] MEDS: FOLIC ACID-VIT B COMPLEX-VIT C 1 CAP PO SCH (08:53)
[2020-11-17] MEDS: SEVELAMER 800 MG TAB PO SCH ×3 (08:54→18:35)
[2020-11-17] MEDS: HYDROXYCHLOROQUINE SULFATE 200 MG TAB PO SCH ×2 (08:54→22:08)
[2020-11-17] MEDS ORDERED: DESMOPRESSIN ACETATE 4 MCG/ML VIAL (MDV) IV SCH (09:00)
[2020-11-17] MEDS: IPRATROPIUM-ALBUTEROL 3 ML NEB INHALATION PRN (09:06)
[2020-11-17] MEDS: SYMBICORT 80-4.5 MCG INHALER INHALATION SCH ×2 (09:06→19:31)
[2020-11-17] MEDS: IPRATROPIUM 0.5 MG/2.5 ML NEBU INHALATION SCH ×4 (09:09→19:31)
[2020-11-17] MEDS ORDERED: LIDOCAINE 1% INJ 10MG/ML (20 ML MDV) ONE (09:14)
[2020-11-17] MEDS ORDERED: GELATIN SPONGE,ABSORB (SMALL) 1 EACH SPONGE TOPICAL ONE (09:30)
[2020-11-17] MEDS ORDERED: THROMBIN (BOVINE) 5,000 UNIT VIAL TOPICAL ONE (09:30)
--- NOTE | 2020-11-17 09:31 | P.PN ---
Subjective Patient is seen in follow-up for end-stage renal disease. She is maintained on hemodialysis on Friday schedule. She had a permacath placed yesterday and also underwent hemodialysis. The permacath has been oozing blood and she is currently receiving IV DDAVP. Vital signs are stable. General: The patient appeared well nourished and normally developed. HEENT: Head exam is unremarkable. Permacath dressing intact. LUNGS: Breath sounds decreased. HEART: Rate and Rhythm are regular. ABDOMEN: Soft, no distention. EXTREMITITES: No edema. Objective - Vital Signs Vital signs: Vital Signs Temp 98.5 F 11/17/20 07:11 Pulse 85 11/17/20 09:07 Resp 16 11/17/20 09:07 BP 137/95 11/17/20 07:11 Pulse Ox 94 L 11/17/20 09:07 Intake & Output 11/16/20 11/17/20 11/17/20 18:59 06:59 18:59 Intake Total 454 300 Output Total 2014 0 Balance -1561 300 Weight 53.9 kg Intake: IV 454 Other 300 Output: Urine 0 Hemodialysis 2000 Estimated Blood Loss 15 Other: Voiding Method Toilet # Voids 0 0 - Labs CBC & Chem 7: 11/16/20 06:33 11/16/20 06:33 Assessment and Plan Plan: Assessment: 1. End-stage renal disease maintained on hemodialysis on Friday schedule. 2. Clotted AV fistula. Permacath placed November 16. 3. Hypertension with chronic kidney disease. Stable. 4. Volume overload. Improved post ultrafiltration. 5. Chronic kidney disease mineral bone disease maintained on Sensipar and Renvela. 6. Mild hyperkalemia secondary to chronic kidney disease. Expect improvement postdialysis. Plan: Hemodialysis today. Morning labs pending.
[2020-11-17 09:46] LABS: HCT 25.6 % (34.0-46.0); MCH 35.5 pg (25.0-35.0); MCHC 32.7 g/dL (31.0-37.0); MCV 108.3 fL (80.0-100.0); Macrocytosis Moderate; Mean Platelet Volume 7.9; Platelet Count 118 k/uL (150-450); RBC 2.37 m/uL (3.80-5.40); RDW 13.2 % (11.5-15.5); WBC 4.4 k/uL (3.8-10.6)
[2020-11-17 09:53] LABS: African American GFR (CKD) 10 (>60 ml/min/1.73 sqM); Anion Gap 10 mmol/L; Blood Urea Nitrogen 50 mg/dL (7-17); Calcium 8.4 mg/dL (8.4-10.2); Carbon Dioxide 29 mmol/L (22-30); Chloride 96 mmol/L (98-107); Glucose 118 mg/dL (74-99); Non-African American GFR(CKD) 9 (>60 ml/min/1.73 sqM); Potassium 4.8 mmol/L (3.5-5.1); Sodium 135 mmol/L (137-145)
[2020-11-17 10:13] LABS: HGB 8.4 gm/dL (11.4-16.0)
--- NOTE | 2020-11-17 11:14 | ECHOF ---
Referral Reason:LVF MEASUREMENTS -------- HEIGHT: 162.6 cm WEIGHT: 53.5 kg BP: RVIDd: 3.7 cm (< 3.3) IVSd: 1.3 cm (0.6 - 1.1) LVIDd: 5.8 cm (3.9 - 5.3) LVPWd: 1.7 cm (0.6 - 1.1) IVSs: 1.4 cm LVIDs: 5.7 cm LVPWs: 1.6 cm MV EXCURSION: 15.618 mm (> 18.000) MV EF SLOPE: 44 mm/s (70 - 150) EPSS: 0.7 cm RAP: 5.00 mmHg RVSP: 28.54 mmHg FINDINGS -------- Sinus rhythm. Views obtained subcostal due to Pt's procedure, no apicals views. The left ventricle is mildly dilated. There is severe global hypokinesis of LV . Overall left dipak tricular systolic function is severely impaired with, an EF between 20 - 25 %. The right ventricle is mildly enlarged. The left atrium was not well visualized. The right atrium was not well visualized. There is mild aortic valve sclerosis. Mild mitral regurgitation is present. Mild tricuspid regurgitation present. Right ventricular systolic pressure is normal at < 35 mmHg. There is no pulmonic regurgitation present. There is no pericardial effusion. CONCLUSIONS -------- 1. Views obtained subcostal due to Pt's procedure, no apicals views. 2. The left ventricle is mildly dilated. 3. There is severe global hypokinesis of LV . 4. Overall left ventricular systolic function is severely impaired with, an EF between 20 - 25 %. 5. The right ventricle is mildly enlarged. 6. The left atrium was not well visualized. 7. The right atrium was not well visualized. 8. There is mild aortic valve sclerosis. 9. Mild mitral regurgitation is present. 10. Mild tricuspid regurgitation present. 11. There is no pulmonic regurgitation present. 12. There is no pericardial effusion. JOB COMPOSITOR: Lali Soto RDCS
--- NOTE | 2020-11-17 11:45 | P.PN ---
Subjective Progress Note Date: 11/17/20 Patient was seen and examined lying in bed. Respiratory status has improved. Patient is postop day #1 for left IJ tunneled dialysis catheter placement. She did receive hemodialysis yesterday, and is scheduled today for another treatment. Apparently after placement of dialysis catheter the patient was having bleeding from site. She continued to have bleeding throughout the night with multiple dressing changes. Dressing was reinforced with pressure applied. Dr. Harvey was notified and DDAVP was ordered and given. Patient is also complaining of pain at the site. She has been afebrile. She denies any fevers or chills. Shortness of breath improved, denies any chest pain. Chest x-ray was obtained following placement of IJ cath with no pneumothorax reported. Patient underwent echocardiogram this morning showing a severely impaired left ventricular systolic function with an EF of 20-25% labs are currently pending. Objective - Vital Signs Vital signs: Vital Signs Temp 98.5 F 11/17/20 07:11 Pulse 82 11/17/20 07:11 Resp 18 11/17/20 07:11 BP 137/95 11/17/20 07:11 Pulse Ox 98 11/17/20 07:11 Intake & Output 11/16/20 11/17/20 11/17/20 18:59 06:59 18:59 Intake Total 454 300 Output Total 2014 0 Balance -1561 300 Weight 53.9 kg Intake: IV 454 Other 300 Output: Urine 0 Hemodialysis 2000 Estimated Blood Loss 15 Other: Voiding Method Toilet # Voids 0 0 - Exam General appearance: The patient is alert, oriented, appears well nourished. HET: Head is normocephalic and atraumatic. Pupils are equal and reactive. Neck: Supple without lymphadenopathy. Trachea midline. Chest: Left IJ tunneled catheter intact with bleeding. Heart: S1 S2. Regular rate and rhythm. Lungs: Decreased breath sounds. Extremities: Normal skin color and turgor. No cyanosis, rash, ulceration, clubbing, or edema. Radial pulses +2 bilaterally. No bruit or thrill and left upper extremity loop graft. Neurological: No focal deficits. Alert and orientated. - Labs CBC & Chem 7: 11/17/20 08:59 11/17/20 08:59 Assessment and Plan Assessment: 1. Left upper extremity AV graft occlusion that is postop day 1 for left IJ tunneled catheter placement 2. Anemia secondary to acute blood loss 3. End-stage renal disease on hemodialysis 4. History of asthma 5. History of heart failure, EF 20-25% 6. History of COPD Plan: 1. Diet as tolerated 2. Stat CBC, BMP ordered repeat in the morning 3. Continue hemodialysis per recommendations from nephrology 4. DDAVP was ordered per Dr. Harvey and given 5. Continue to monitor bleeding from tunneled cath site 6. Note from surgeon to follow The impression and plan of care has been dictated as directed. Dr. Tran I performed a history and examination of this patient, discussed the same with the dictator. I agree with the dictator's note,documented as a scribe. Any additional findings or plans will be noted.
--- NOTE | 2020-11-17 12:21 | P.PN ---
Subjective Progress Note Date: 11/17/20 History of present illness 50 years old female with past medical history of asthma, congestive heart failure not known systolic or diastolic( patient reports eating EF of 40%), COPD, end-stage renal disease on hemodialysis Friday and Friday from lupus, hypertension, rheumatoid arthritis, history of lupus, vasculitis or autoimmune disorder, history of IBS, restless leg comes in with left upper extremity AV graft occlusion. Patient had the left it's upper extremity loop AV graft placed by Dr. Tran on 07/20/2019 followed by a fistulogram for a malfunctioning AV graft with no evidence of inflow or outflow stenosis or externalization by Dr. Tran in December 2019. Patient had a peritoneal catheter placed in May 2020 which was removed on for malfunctioning and patient was placed back on hemodialysis. Patient was seen by Dr. Crawford on 08/08/2020 for pain involving the medial aspect of her graft. She was noted to have thrombosis of the subclavian vein with some stenosis and widely patent AV graft noted on left upper extremity ultrasound but patient was admitted with AV graft occlusion prior to the scheduled procedure on 09/14 and underwent open thrombectomy, fistulogram and balloon angioplasty of left lower vein outflow by Dr. Estrada. Patient had a normal dialysis session on Friday but was noted to be volume overload. She went for dialysis session today but could not get dialysis due to malfunctioning of her graft. She is very short of breath on assessment and complains of epigastric pain. Patient denies any cough, chest pain, diarrhea or nausea or vomiting. Patient noted to have shortness of breath saturating at 90-92% requiring 2 L of oxygen in the ER She denied any pain in the left upper extremity or swelling. Vitals reviewed patient is afebrile pulse 88 respiratory rate 22 blood pressure 155/100 . Lab reviewed patient is a hemoglobin 10.4 platelet 111 WBC 4.4 creatinine 6.15 nightly 49 sodium 138 potassium 4.7 proBNP is 23,000. One dose of Lasix in the ER. Nephrology and vascular surgery consulted for open thrombectomy. 11/16: Patient has been seen by nephrology for [facility] with anticipation of starting hemodialysis today. Vascular surgery is on consult with plan for tunneled dialysis catheter today. Patient has had decline of her condition overnight with increasing weakness and fatigue, hypoxia requiring transition from room air to 4 L nasal cannula and now to Ventimask with pulse ox of 89% with Ventimask at 50%. Chest x-ray this morning reveals COPD with superimposed heart failure with continued interstitial pulmonary edema. Small pleural effusions. Aeration slightly worse at the right base. Patient has been afebrile, heart rate in the 90s, blood pressure 155/97. Plan is for tunneled dialysis catheter today and start hemodialysis immediately. 11/17: Patient had tunneling catheter placed yesterday and had oozing from the site during the night, Dr. Tran did stitching and thrombin gel at the site to control bleeding. Patient is status post dose of DDAVP. Patient underwent hemodialysis yesterday with removal of 2 L with plan to repeat dialysis today. Patient was continued on oxygen at 8 L throughout the night and this morning started to wean down to 6 L with pulse ox is 93%. Patient is not home oxygen dependent. Anticipate oxygenation will improve after dialysis treatment today. Repeat blood work reveals WBC 4.4, hemoglobin 8.4 and platelet count 118. Sodium 135, potassium 4.8, chloride 96, CO2 29, BUN 15 creatinine 5.23. Blood sugar 118. Echocardiogram reveals EF of 20-25% with severe global hypokinesia of the LV, mild aortic valve sclerosis, mild mitral regurgitation, mild tricuspid regurgitation. ROS Constitutional: Denies chills, Denies fever, reports lethargy, reports malaise, Denies poor appetite, reports weakness, Denies weight loss Eyes: denies decreased vision, denies diplopia, denies discharge, denies pain Ears: deny: decreased hearing Ears, nose, mouth and throat: Denies dental pain, Denies headache, Denies nasal discharge, Denies nose pain Cardiovascular: Denies chest pain, reports decreased exercise tolerance, Denies edema, Denies high blood pressure, Denies irregular heart beat, Denies palpitations, Denies paroxysmal nocturnal dyspnea, Denies rapid heart beat, reports shortness of breath Respiratory: Denies congestion, Denies cough, Denies cough with sputum, endorses dyspnea, Denies wheezing Gastrointestinal: Endorses abdominal pain, Denies change in bowel habits, Denies coffee ground emesis, Denies early satiety, Denies excessive gas, Denies heartburn, Denies hematemesis, Denies hematochezia, Denies loss of appetite, D enies nausea, Denies vomiting Genitourinary: Denies dysuria, Denies flank pain, Denies kidney stones, Denies menorrhagia, Denies urgency, Denies urinary frequency Musculoskeletal: Denies gait dysfunction, Denies limitation of motion, Denies morning stiffness, Denies muscle cramps Integumentary: Denies rash, Denies wounds, Denies brittle nails, Denies change in hair/nails, Denies darkening of skin Neurological: Denies balance difficulties, Denies change in speech, Denies double vision, Denies gait dysfunction, Denies loss of vision, Denies motor disturbance, Denies numbness, Denies paralysis, Denies paresthesias, Denies seizures Psychiatric: Denies anxiety, Denies depression Endocrine: Denies excessive sweating, Denies excessive thirst, Denies high blood sugars, Denies palpitations Hematologic/Lymphatic: Denies easy bruising, Denies lymphadenopathy Physical exam - Constitutional General appearance: cooperative, mild acute distress, thin-appearing - EENT Eyes: anicteric sclerae, PERRLA, normal appearance ENT: hearing grossly normal - Neck Neck: no lymphadenopathy, normal ROM, no other, no rigidity, no stridor, no thyromegaly - Respiratory Respiratory: bilateral: Decreased air entry bilaterally no crackles and no wheezes- Cardiovascular Rhythm: regular Heart sounds: normal: S1, S2 Abnormal Heart Sounds: 3/6 systolic murmur, no diastolic murmur, no rub, no S3 Gallop, no S4 Gallop, no click, no other - Gastrointestinal General gastrointestinal: normal bowel sounds, soft tender in the epigastric region - Integumentary Integumentary: Graft in the left upper arm nonfunctioning no thrill palpated - Neurologic Neurologic: No sensorimotor deficit - Musculoskeletal Musculoskeletal: gait normal, strength equal bilaterally - Psychiatric Psychiatric: A&O x's 3, appropriate affect Assessment and plan #1 left upper extremity AV graft occlusion postop day #1 for left IJ tunneled dialysis catheter placement with vascular surgery. Bleeding from the surgical site address this morning by Dr. Tran. Patient is status post dialysis treatment yesterday with repeat HD today. #2 acute hypoxic respiratory failure secondary to volume overload from missing dialysis session, acute on chronic systolic heart failure. Continue oxygen therapy and try to wean off. Patient is not oxygen dependent. Repeat dialysis scheduled for today.. #3 End-stage renal disease on hemodialysis on Friday and Friday. Plan for dialysis today. Consult nephrology, continue Lasix 80 twice a day continue Renvela 3200 mg 3 times a day #4 chronic systolic heart failure. Continue Coreg 12.5 twice a day continue isosorbide dinitrate #5 history of moderate intermittent asthma/ COPD continue DuoNeb , Symbicort twice daily #6 recurrent depression continue amitriptyline #7 hypertension continue amlodipine, continue clonidine 0.1 3 times a day continue hydralazine 25 twice a day #8 history of lupus nephritis continue Plaquenil 200 twice a day #9 history of restless leg syndrome continue Requip 2 mg 3 times a day #10 code status full code 11 DVT prophylaxis with SCDs DISCHARGE PLAN Home Impression and plan of care have been directed as dictated by the signing physician. Yumiko Olguin nurse practitioner acting as scribe for signing physician. Objective - Vital Signs Vital signs: Vital Signs Temp 98.5 F 11/17/20 07:11 Pulse 88 11/17/20 09:18 Resp 16 11/17/20 09:18 BP 137/95 11/17/20 07:11 Pulse Ox 93 L 11/17/20 11:16 Intake & Output 11/16/20 11/17/20 11/17/20 18:59 06:59 18:59 Intake Total 454 300 Output Total 2014 0 Balance -1561 300 Weight 53.9 kg Intake: IV 454 Other 300 Output: Urine 0 Hemodialysis 2000 Estimated Blood Loss 15 Other: Voiding Method Toilet # Voids 0 0 - Labs CBC & Chem 7: 11/17/20 08:59 11/17/20 08:59 Labs: Abnormal Lab Results - Last 24 Hours (Table) 11/17/20 11/17/20 Range/Units 08:59 08:59 RBC 2.37 L (3.80-5.40) m/uL Hgb 8.4 L D (11.4-16.0) gm/dL Hct 25.6 L (34.0-46.0) % MCV 108.3 H (80.0-100.0) fL MCH 35.5 H (25.0-35.0) pg Plt Count 118 L (150-450) k/uL Sodium 135 L (137-145) mmol/L Chloride 96 L (98-107) mmol/L BUN 50 H (7-17) mg/dL Creatinine 5.23 H (0.52-1.04) mg/dL Glucose 118 H (74-99) mg/dL
[2020-11-17] MEDS: carvediloL 12.5 MG TAB PO SCH ×2 (13:20→18:36)
[2020-11-17] MEDS: hydrALAZINE HCL 50 MG TAB PO SCH ×3 (13:21→22:11)
[2020-11-17] MEDS: ACETAMINOPHEN TAB 325 MG TAB PO PRN (16:11)
[2020-11-17] MEDS: FUROSEMIDE 10 MG/ML 4 ML VIAL IV SCH ×2 (18:12→22:07)
[2020-11-17] MEDS: CINACALCET 30 MG TAB PO SCH (18:35)
[2020-11-17] MEDS: ONDANSETRON 4 MG/2 ML VIAL IVP PRN (18:35)
[2020-11-17] MEDS: amLODIPine 10 MG TAB PO SCH (18:36)
[2020-11-17] MEDS: AMITRIPTYLINE HCL 10 MG TAB PO SCH (22:08)
[2020-11-18] MEDS: ALPRAZolam 0.25 MG TAB PO SCH ×2 (01:36→08:59)
[2020-11-18] MEDS: ISOSORBIDE DINITRATE 10 MG TAB PO SCH ×2 (01:39→08:59)
[2020-11-18] MEDS: ONDANSETRON 4 MG/2 ML VIAL IVP PRN (01:42)
[2020-11-18 08:01] VITALS: BP 140/94; RESP 18; TEMP 98
[2020-11-18] MEDS: SYMBICORT 80-4.5 MCG INHALER INHALATION SCH (08:12)
[2020-11-18] MEDS: IPRATROPIUM 0.5 MG/2.5 ML NEBU INHALATION SCH ×2 (08:12→12:40)
[2020-11-18] MEDS: carvediloL 12.5 MG TAB PO SCH (08:59)
[2020-11-18] MEDS: amLODIPine 10 MG TAB PO SCH (08:59)
[2020-11-18] MEDS: cloNIDine HCL 0.1 MG TAB PO SCH (08:59)
[2020-11-18] MEDS: AURYXIA PO SCH (08:59)
[2020-11-18] MEDS: SEVELAMER 800 MG TAB PO SCH ×2 (08:59→13:10)
[2020-11-18] MEDS: FOLIC ACID-VIT B COMPLEX-VIT C 1 CAP PO SCH (08:59)
[2020-11-18] MEDS: HYDROXYCHLOROQUINE SULFATE 200 MG TAB PO SCH (09:00)
[2020-11-18] MEDS: FUROSEMIDE 10 MG/ML 4 ML VIAL IV SCH (09:00)
[2020-11-18] MEDS: hydrALAZINE HCL 50 MG TAB PO SCH (09:00)
--- NOTE | 2020-11-18 10:57 | P.DS ---
Providers Date of admission: 11/16/20 12:20 Attending physician: Federico Mott MD Consults: 11/15/20 12:55 Consult Physician Routine Consulting Provider: Tor Bronson Consult Reason/Comments: Hemodialysis Do you want consulting provider notified?: Yes 11/15/20 13:22 Consult Physician Routine Consulting Provider: Millicent Estrada Consult Reason/Comments: AV fistula malfunction Do you want consulting provider notified?: Already Contacted Primary care physician: [facility] Course: History of present illness 50 years old female with past medical history of asthma, congestive heart failure not known systolic or diastolic( patient reports eating EF of 40%), COPD, end-stage renal disease on hemodialysis Friday and Friday from lupus, hypertension, rheumatoid arthritis, history of lupus, vasculitis or autoimmune disorder, history of IBS, restless leg comes in with left upper extremity AV graft occlusion. Patient had the left it's upper extremity loop AV graft placed by Dr. Tran on 07/20/2019 followed by a fistulogram for a malfunctioning AV graft with no evidence of inflow or outflow stenosis or externalization by Dr. Tran in December 2019. Patient had a peritoneal catheter placed in May 2020 which was removed on for malfunctioning and patient was placed back on hemodialysis. Patient was seen by Dr. Crawford on 08/08/2020 for pain involving the medial aspect of her graft. She was noted to have thrombosis of the subclavian vein with some stenosis and widely patent AV graft noted on left upper extremity ultrasound but patient was admitted with AV graft occlusion prior to the scheduled procedure on 09/14 and underwent open thrombectomy, fistulogram and balloon angioplasty of left lower vein outflow by Dr. Estrada. Patient had a normal dialysis session on Friday but was noted to be volume overload. She went for dialysis session today but could not get dialysis due to malfunctioning of her graft. She is very short of breath on assessment and complains of epigastric pain. Patient denies any cough, chest pain, diarrhea or nausea or vomiting. Patient noted to have shortness of breath saturating at 90-92% requiring 2 L of oxygen in the ER She denied any pain in the left upper extremity or swelling. Vitals reviewed patient is afebrile pulse 88 respiratory rate 22 blood pressure 155/100 . Lab reviewed patient is a hemoglobin 10.4 platelet 111 WBC 4.4 creatinine 6.15 nightly 49 sodium 138 potassium 4.7 proBNP is 23,000. One dose of Lasix in the ER. Nephrology and vascular surgery consulted for open thrombectomy. 11/16: Patient has been seen by nephrology for end-stage renal disease on hemodialysis Friday schedule with anticipation of starting hemodialysis today. Vascular surgery is on consult with plan for tunneled dialysis catheter today. Patient has had decline of her condition overnight with increasing weakness and fatigue, hypoxia requiring transition from room air to 4 L nasal cannula and now to Ventimask with pulse ox of 89% with Ventimask at 50%. Chest x-ray this morning reveals COPD with superimposed heart failure with continued interstitial pulmonary edema. Small pleural effusions. Aeration slightly worse at the right base. Patient has been afebrile, heart rate in the 90s, blood pressure 155/97. Plan is for tunneled dialysis catheter today and start hemodialysis immediately. 11/17: Patient had tunneling catheter placed yesterday and had oozing from the site during the night, Dr. Tran did stitching and thrombin gel at the site to control bleeding. Patient is status post dose of DDAVP. Patient underwent hemodialysis yesterday with removal of 2 L with plan to repeat dialysis today. Patient was continued on oxygen at 8 L throughout the night and this morning started to wean down to 6 L with pulse ox is 93%. Patient is not home oxygen dependent. Anticipate oxygenation will improve after dialysis treatment today. Repeat blood work reveals WBC 4.4, hemoglobin 8.4 and platelet count 118. Sodium 135, potassium 4.8, chloride 96, CO2 29, BUN 15 creatinine 5.23. Blood sugar 118. Echocardiogram reveals EF of 20-25% with severe global hypokinesia of the LV, mild aortic valve sclerosis, mild mitral regurgitation, mild tricuspid regurgitation. ROS Constitutional: Denies chills, Denies fever, reports lethargy, reports malaise, Denies poor appetite, reports weakness, Denies weight loss Eyes: denies decreased vision, denies diplopia, denies discharge, denies pain Ears: deny: decreased hearing Ears, nose, mouth and throat: Denies dental pain, Denies headache, Denies nasal discharge, Denies nose pain Cardiovascular: Denies chest pain, reports decreased exercise tolerance, Denies edema, Denies high blood pressure, Denies irregular heart beat, Denies palpitations, Denies paroxysmal nocturnal dyspnea, Denies rapid heart beat, reports shortness of breath Respiratory: Denies congestion, Denies cough, Denies cough with sputum, endorses dyspnea, Denies wheezing Gastrointestinal: Endorses abdominal pain, Denies change in bowel habits, Denies coffee ground emesis, Denies early satiety, Denies excessive gas, Denies heartburn, Denies hematemesis, Denies hematochezia, Denies loss of appetite, Denies nausea, Denies vomiting Genitourinary: Denies dysuria, Denies flank pain, Denies kidney stones, Denies menorrhagia, Denies urgency, Denies urinary frequency Musculoskeletal: Denies gait dysfunction, Denies limitation of motion, Denies morning stiffness, Denies muscle cramps Integumentary: Denies rash, Denies wounds, Denies brittle nails, Denies change in hair/nails, Denies darkening of skin Neurological: Denies balance difficulties, Denies change in speech, Denies double vision, Denies gait dysfunction, Denies loss of vision, Denies motor disturbance, Denies numbness, Denies paralysis, Denies paresthesias, Denies seizures Psychiatric: Denies anxiety, Denies depression Endocrine: Denies excessive sweating, Denies excessive thirst, Denies high blood sugars, Denies palpitations Hematologic/Lymphatic: Denies easy bruising, Denies lymphadenopathy Physical exam - Constitutional General appearance: cooperative, mild acute distress, thin-appearing - EENT Eyes: anicteric sclerae, PERRLA, normal appearance ENT: hearing grossly normal - Neck Neck: no lymphadenopathy, normal ROM, no other, no rigidity, no stridor, no thyromegaly - Respiratory Respiratory: bilateral: Decreased air entry bilaterally no crackles and no wheezes- Cardiovascular Rhythm: regular Heart sounds: normal: S1, S2 Abnormal Heart Sounds: 3/6 systolic murmur, no diastolic murmur, no rub, no S3 Gallop, no S4 Gallop, no click, no other - Gastrointestinal General gastrointestinal: normal bowel sounds, soft tender in the epigastric region - Integumentary Integumentary: Graft in the left upper arm nonfunctioning no thrill palpated - Neurologic Neurologic: No sensorimotor deficit - Musculoskeletal Musculoskeletal: gait normal, strength equal bilaterally - Psychiatric Psychiatric: A&O x's 3, appropriate affect Assessment and plan #1 left upper extremity AV graft occlusion postop day #1 for left IJ tunneled dialysis catheter placement with vascular surgery. Bleeding from the surgical site address this morning by Dr. Tran. Patient is status post dialysis treatment yesterday with repeat HD today. #2 acute hypoxic respiratory failure secondary to volume overload from missing dialysis session, acute on chronic systolic heart failure. Continue oxygen therapy and try to wean off. Patient is not oxygen dependent. Repeat dialysis scheduled for today.. #3 End-stage renal disease on hemodialysis on Friday and Friday. Plan for dialysis today. Consult nephrology, continue Lasix 80 twice a day continue Renvela 3200 mg 3 times a day #4 chronic systolic heart failure. Continue Coreg 12.5 twice a day continue isosorbide dinitrate #5 history of moderate intermittent asthma/ COPD continue DuoNeb , Symbicort twice daily #6 recurrent depression continue amitriptyline #7 hypertension continue amlodipine, continue clonidine 0.1 3 times a day continue hydralazine 25 twice a day #8 history of lupus nephritis continue Plaquenil 200 twice a day #9 history of restless leg syndrome continue Requip 2 mg 3 times a day hospital course: Patient was seen vascular, dialysis catheter was adjusted and his AV graft occlusion was treated. Patient was started on dialysis in house he was supposed to be discharged yesterday developed to have significant dyspnea and shortness of breath did not have any major abnormality was on O2 for overnight her pulse oximetry this morning was good, patient was very clear for discharge by nephtimur corbett will be able to send her home today to follow-up with her primary care physician and by nephrologypatient will go back to do for outpatient hemodialysis start on Friday. Plan - Discharge Summary Discharge Rx Participant: No New Discharge Prescriptions: Continue amLODIPine [Norvasc] 10 mg PO DAILY Folic Acid-Vit B Complex-Vit C [Nephrocaps] 1 mg PO DAILY Cinacalcet HCl [Sensipar] 60 mg PO W/SUPPER Albuterol Inhaler [Ventolin Hfa Inhaler] 2 puff INHALATION RT-Q4H PRN PRN Reason: Shortness Of Breath Sevelamer [Renvela] 3,200 mg PO TID Isosorbide Dinitrate [Isordil] 10 mg PO Q8H Furosemide [Lasix] 80 mg PO BID Amitriptyline HCl [Elavil] 10 mg PO HS Hydroxychloroquine Sulfate [Plaquenil] 200 mg PO BID Lidocaine-Prilocaine Cream [Emla Cream 2.5%/2.5%] 1 applic TOPICAL DIRECTED PRN PRN Reason: PORT ACCESS Fluticasone/Umeclidin/Vilanter [Trelegy Ellipta 100-62.5-25] 1 puff INHALA TION RT-BID rOPINIRole HCL [Requip] 2 mg PO TID Lactulose [Constulose] 20 gm PO BID PRN PRN Reason: Constipation hydrALAZINE HCL [Apresoline] 100 mg PO TID cloNIDine HCL [Catapres] 0.1 mg PO TID Carvedilol [Coreg] 12.5 mg PO BID Auryxia 840 mg PO TID Discharge Medication List Folic Acid-Vit B Complex-Vit C [Nephrocaps] 1 mg PO DAILY 12/06/19 [History] amLODIPine [Norvasc] 10 mg PO DAILY 12/06/19 [History] Albuterol Inhaler [Ventolin Hfa Inhaler] 2 puff INHALATION RT-Q4H PRN 08/10/20 [History] Cinacalcet HCl [Sensipar] 60 mg PO W/SUPPER 08/10/20 [History] Hydroxychloroquine Sulfate [Plaquenil] 200 mg PO BID 08/10/20 [History] Amitriptyline HCl [Elavil] 10 mg PO HS 09/14/20 [History] Carvedilol [Coreg] 12.5 mg PO BID 09/14/20 [History] Fluticasone/Umeclidin/Vilanter [Trelegy Ellipta 100-62.5-25] 1 puff INHALATION RT-BID 09/14/20 [History] Furosemide [Lasix] 80 mg PO BID 09/14/20 [History] Isosorbide Dinitrate [Isordil] 10 mg PO Q8H 09/14/20 [History] Lactulose [Constulose] 20 gm PO BID PRN 09/14/20 [History] Lidocaine-Prilocaine Cream [Emla Cream 2.5%/2.5%] 1 applic TOPICAL DIRECTED PRN 09/14/20 [History] Sevelamer [Renvela] 3,200 mg PO TID 09/14/20 [History] cloNIDine HCL [Catapres] 0.1 mg PO TID 09/14/20 [History] hydrALAZINE HCL [Apresoline] 100 mg PO TID 09/14/20 [History] rOPINIRole HCL [Requip] 2 mg PO TID 09/14/20 [History] Auryxia 840 mg PO TID 11/15/20 [History] Follow up Appointment(s)/Referral(s): Angela Davila MD [STAFF PHYSICIAN] - 1 Week (PATIENT TO CALL AND MAKE APPOINTMENT ) Melina Freire MD [Primary Care Provider] - 1-2 days (PATIENT TO CALL AND MAKE APPOINTMENT ) Discharge Disposition: HOME SELF-CARE
[2020-11-18 16:08] VITALS: PULSE 64
--- NOTE | 2020-11-18 17:01 | PN ---
PROGRESS NOTE Patient is seen for followup for end-stage renal disease. She was dialyzed yesterday. Patient is doing well. There are plans for discharge today. PHYSICAL EXAMINATION: Blood pressure 140/94, heart rate 80 per minute. She is afebrile. EXAMINATION OF THE HEART: S1 and S2. EXAMINATION OF LUNGS: Decreased breath sounds at the bases. ABDOMEN: Soft, nontender. LOWER EXTREMITIES: Examination of lower extremities shows no significant edema. PRODUCTION COORDINATOR EXAM: Grossly intact. LABS: Sodium 135, potassium 4.8, BUN 50, creatinine 5.2, hemoglobin 8.4 g/dL. ASSESSMENT: 1. End-stage renal disease, on hemodialysis on a Friday, Friday, Friday schedule. 2. Bleeding from PermCath, currently resolved. Patient was evaluated by Vascular Surgery and I believe had a suture placed in. 3. Thrombosed AV fistula, status post PermCath placement November 16. 4. Chronic kidney disease mineral bone disorder. 5. Mild hyperkalemia associated with end-stage renal disease, now improved. PLAN: Follow up for hemodialysis on Friday as outpatient. MMODL / IJN: [id number] /
== END 2020-11-18 14:51 | disposition home or self-care (01) | DRG 314 ==
LOC: EC 10:07 → 4SSUR 13:05 → OBSVTOIN 11-16 12:20
PROVIDERS: ADMIT Internal Medicine; ATTEND Internal Medicine
PROC: 02HV33Z Insertion of Infusion Device into Superior Vena Cava, Percutaneous Approach (ICD-10-PCS; 2020-11-16)
PROC: B5181ZA Fluoroscopy of Superior Vena Cava using Low Osmolar Contrast, Guidance (ICD-10-PCS; 2020-11-16)
PROC: 5A1D70Z Performance of Urinary Filtration, Intermittent, Less than 6 Hours Per Day (ICD-10-PCS; 2020-11-16)
PROC: 0JH63XZ Insertion of Tunneled Vascular Access Device into Chest Subcutaneous Tissue and Fascia, Percutaneous Approach (ICD-10-PCS; principal; 2020-11-16 12:15)
DX: T82.510A Breakdown (mechanical) of surgically created arteriovenous fistula, initial encounter (principal); N18.6 End stage renal disease; J96.01 Acute respiratory failure with hypoxia; D62 Acute posthemorrhagic anemia; F33.9 Major depressive disorder, recurrent, unspecified; I13.2 Hypertensive heart and chronic kidney disease with heart failure and with stage 5 chronic kidney disease, or end stage renal disease; I50.22 Chronic systolic (congestive) heart failure; F32.9 Major depressive disorder, single episode, unspecified; Z99.2 Dependence on renal dialysis; Z87.891 Personal history of nicotine dependence; Z86.718 Personal history of other venous thrombosis and embolism; Z80.52 Family history of malignant neoplasm of bladder; Z80.1 Family history of malignant neoplasm of trachea, bronchus and lung; Z80.0 Family history of malignant neoplasm of digestive organs; Z79.899 Other long term (current) drug therapy; E87.5 Hyperkalemia; F41.9 Anxiety disorder, unspecified; G25.81 Restless legs syndrome; H91.90 Unspecified hearing loss, unspecified ear; J44.9 Chronic obstructive pulmonary disease, unspecified; Y71.2 Prosthetic and other implants, materials and accessory cardiovascular devices associated with adverse incidents; Y83.2 Surgical operation with anastomosis, bypass or graft as the cause of abnormal reaction of the patient, or of later complication, without mention of misadventure at the time of the procedure; Y83.8 Other surgical procedures as the cause of abnormal reaction of the patient, or of later complication, without mention of misadventure at the time of the procedure; M89.9 Disorder of bone, unspecified; M06.9 Rheumatoid arthritis, unspecified; M89.8X9 Other specified disorders of bone, unspecified site; K21.9 Gastro-esophageal reflux disease without esophagitis; J45.20 Mild intermittent asthma, uncomplicated; M79.7 Fibromyalgia
CPT/HCPCS: 36415; 71045; 71046; 77001; 80048; 81025; 83880; 84702; 85025; 85027; 85610; 87635; 90935; 93005; 93306; 94640; 94760; 99285

== ENCOUNTER 2021-02-24 15:30 | Emergency (ER) | payer MEDICARE, OTHER ==
--- NOTE | 2021-02-24 16:09 | ED ---
General Adult HPI - General Source: patient Mode of arrival: EMS Limitations: no limitations <Yumiko Justice - Last Filed: 02/24/21 16:28> <Rene Abebe - Last Filed: 02/25/21 01:05> - General Chief complaint: Recheck/Abnormal Lab/Rx Stated complaint: Fatigue Time Seen by Provider: 02/24/21 15:33 - History of Present Illness Initial comments: 50 year-old female patient presents to the emergency department for evaluation of fatigue. States that she is very tired. She does not know why. States she feels like she is having trouble breathing. Reports dry cough. Denies any chest pain. Denies body aches or fevers. Denies nausea, vomiting, or diarrhea. She is a dialysis patient, MWF schedule, last dialysis on Friday. Patient denies any recent rash, abdominal pain, constipation, back pain, numbness, tingling, dizziness, hematuria, dysuria, urinary urgency, urinary frequency, headache, visual changes, or any other complaints. (Yumiko Justice) - Related Data Home Medications Medication Instructions Recorded Confirmed Folic Acid-Vit B Complex-Vit C 1 mg PO DAILY 12/06/19 02/24/21 [Nephrocaps] amLODIPine [Norvasc] 10 mg PO DAILY 12/06/19 02/24/21 Albuterol Inhaler [Ventolin Hfa 2 puff INHALATION RT-Q6H PRN 08/10/20 02/24/21 Inhaler] Cinacalcet HCl [Sensipar] 120 mg PO W/SUPPER 08/10/20 02/24/21 Amitriptyline HCl [Elavil] 10 mg PO HS 09/14/20 02/24/21 Carvedilol [Coreg] 12.5 mg PO BID 09/14/20 02/24/21 Fluticasone/Umeclidin/Vilanter 1 puff INHALATION RT-BID 09/14/20 02/24/21 [Trelegy Ellipta 100-62.5-25] Furosemide [Lasix] 80 mg PO BID 09/14/20 02/24/21 Isosorbide Dinitrate [Isordil] 10 mg PO TID 09/14/20 02/24/21 Lidocaine-Prilocaine Cream [Emla 1 applic TOPICAL DIRECTED PRN 09/14/20 02/24/21 Cream 2.5%/2.5%] Sevelamer [Renvela] 3,200 mg PO TID 09/14/20 02/24/21 Auryxia 840 mg PO TID 11/15/20 02/24/21 Atorvastatin [Lipitor] 20 mg PO DAILY 02/24/21 02/24/21 Losartan [Cozaar] 50 mg PO BID 02/24/21 02/24/21 Sacubitril/Valsartan [Entresto 49 1 tab PO BID 02/24/21 02/24/21 mg-51 mg Tablet] hydrALAZINE HCL [Apresoline] 100 mg PO TID 02/24/21 02/24/21 rOPINIRole HCL [Requip] 0.25 mg PO TID 02/24/21 02/24/21 Allergies Allergy/AdvReac Type Severity Reaction Status Date / Time Iodinated Contrast Media Allergy Severe stopped Verified 02/24/21 19:51 breathing aspirin Allergy Swelling/hi Verified 02/24/21 19:51 ves Penicillins Allergy Dyspnea Verified 02/24/21 19:51 sulfamethoxazole Allergy Dyspnea Verified 02/24/21 19:51 [From Bactrim] trimethoprim [From Bactrim] Allergy Dyspnea Verified 02/24/21 19:51 Review of Systems ROS Other: All systems not noted in ROS Statement are negative. <Yumiko Justice - Last Filed: 02/24/21 16:28> ROS Other: All systems not noted in ROS Statement are negative. <Rene Abebe - Last Filed: 02/25/21 01:05> ROS Statement: Those systems with pertinent positive or pertinent negative responses have been documented in the HPI. Past Medical History Past Medical History: Asthma, Heart Failure, COPD, Dialysis, Fibromyalgia, GERD/Reflux, Hypertension, Renal Disease, Rheumatoid Arthritis (RA), Skin Disorder Additional Past Medical History / Comment(s): migraines, anemia, lupus, stage 5 renal failure, hemodialysis MOWEFR, vasculitis autoimmune disorder, glaucoma, hx ulcer, IBS, SOB with activity, restless leg, psoriasis History of Any Multi-Drug Resistant Organisms: None Reported Past Surgical History: Section Additional Past Surgical History / Comment(s): "port in chest"/removed, C/S x 3, cold knife conization, fistula left arm for hemodialysis, peritoneal dialysis catheter, PERITONEAL CATHETER REMOVED Past Anesthesia/Blood Transfusion Reactions: Family History of Problems w/ Anesthesia, Motion Sickness Additional Past Anesthesia/Blood Transfusion Reaction / Comment(s): slow to wake up after last procedure, mother PONV Past Psychological History: Anxiety Smoking Status: Former smoker Past Alcohol Use History: None Reported Past Drug Use History: None Reported - Past Family History Mother Family Medical History: Cancer Additional Family Medical History / Comment(s): breast/ bladder and lung CA Father Family Medical History: Cancer Additional Family Medical History / Comment(s): pancreatic cancer <Yumiko Justice - Last Filed: 02/24/21 16:28> General Exam Limitations: no limitations General appearance: in no apparent distress, lethargic, other (This is a well- developed, well-nourished adult female patient) ENT exam: Present: normal exam, normal oropharynx, mucous membranes moist Respiratory exam: Present: normal lung sounds bilaterally. Absent: respiratory distress, wheezes, rales, rhonchi, stridor Cardiovascular Exam: Present: regular rate, normal rhythm, normal heart sounds. Absent: systolic murmur, diastolic murmur, rubs, gallop, clicks GI/Abdominal exam: Present: soft, normal bowel sounds. Absent: distended, tenderness, guarding, rebound, rigid Neurological exam: Present: alert, oriented X3, CN II-XII intact Psychiatric exam: Present: normal affect, normal mood Skin exam: Present: warm, dry, intact, normal color. Absent: rash <Yumiko Justice - Last Filed: 02/24/21 16:28> Course <Rene Abebe - Last Filed: 02/25/21 01:05> Vital Signs 02/24/21 02/24/21 02/24/21 15:38 17:22 18:12 Temperature 94.4 F L 98.0 F Pulse Rate 89 90 101 H Respiratory 20 20 Rate Blood Pressure 120/70 138/97 Blood Pressure [Right Arm] O2 Sat by Pulse 92 L 89 L Oximetry 02/24/21 02/24/21 02/24/21 18:26 19:15 20:25 Temperature 99.0 F Pulse Rate 110 H 112 H 112 H Respiratory 28 H 28 H Rate Blood Pressure 179/128 176/110 Blood Pressure [Right Arm] O2 Sat by Pulse 94 L 96 Oximetry 02/24/21 02/24/21 02/25/21 22:30 23:36 00:33 Temperature 99.2 F 97.3 F L Pulse Rate 77 79 Respiratory 20 20 22 Rate Blood Pressure 145/111 132/104 Blood Pressure 122/104 [Right Arm] O2 Sat by Pulse 93 L 90 L Oximetry - Reevaluation(s) Reevaluation #1: 02/24/21 17:11 Patient was endorsed to me by ED OMAIRA Justice secondary to end of her shift with the patient's labs and imaging studies still pending. I have seen and examined the patient myself. Patient is somnolent in appearance, but easily arousable and oriented 4. Patient is just complaining of feeling fatigued at this time. Patient's potassium level is noted to be 7.3 and her CMP blood glucose level is 41. Hypokalemia and hypoglycemia treatment has been initiated. I have also ordered a dose of IV cefepime for empiric treatment given the patient's leukocytosis, hypothermia and elevated lactic acid level. I have also added on labs and a gallbladder US to further workup the patient's elevated liver function tests. 02/24/21 19:20 Patient has now become somewhat agitated and restless. Patient's blood pressure is also now elevated. Ativan 1 mg IV has been ordered for sedation. Patient's imaging studies are still pending at this time. 02/24/21 19:52 Case, H&P, test results thus far and ED management thus far were discussed with Dr. Davila (budget accountant). She states that she will send a team in to dialyze the patient, and she requests moving the patient to an ED room that is dialysis capable. She has no further recommendations at this time. 02/24/21 21:11 Case, H&P, test results thus far, ED management thus far and my discussion with Dr. Davila as above were discussed with Dr. Mott. She states that given the patient's significantly elevated liver function tests, possible need for liver transplant, and no GI coverage in our hospital today, she recommends transferring the patient to a tertiary care facility. She has no further recommendations at this time. 02/24/21 23:13 [facility] has been contacted to see if they are accepting transfers. Patient's information was provided to them. They state that they will call us back after speaking with their medical coding instructor. Patient remains somnolent, but easily arousable. Patient continues to be oriented 4. Patient is aware of her test results, and she agrees with transfer to a tertiary care facility for further evaluation and management. Patient is still awaiting ED dialysis at this time. 02/25/21 00:39 I discussed the patient's case with Dr. Christensen at the [facility]. She states that she feels that the patient is not currently a transplant candidate, and she does not feel that transfer to a transplant surgery capable facility is necessary at this time. She recommends admitting the patient here at our hospital and following the patient's labs. She states that they would reconsider if the patient's labs/condition worsen. Patient is currently being dialyzed in the ED. 02/25/21 00:58 Case, H&P, test results, ED management and my discussion with Dr. Mott as above were discussed with Dr. Henderson (medical AOD at [facility]). He accepts ambulance transfer to [facility] for direct admission. He has no further recommendations at this time. (Rene Abebe) EKG Findings - EKG Comments: EKG Findings:: EKG obtained at 1548 shows normal sinus rhythm with a prolonged QT interval. Ventricular rate is 85, AL interval 198, QRS duration 108, QT 444, QTc 528. No evidence of ST elevation or depression. <Yumiko Justice - Last Filed: 02/24/21 16:28> Medical Decision Making <Yumiko Justice - Last Filed: 02/24/21 16:28> - Lab Data Result diagrams: 02/24/21 16:02 02/24/21 16:02 - Radiology Data Radiology results: report reviewed (Chest x-ray: Congestive heart failure with pleural effusions. Pulmonary congestion and fluid slightly increased compared to last exam.) <Rene Abebe - Last Filed: 02/25/21 01:05> - Medical Decision Making 50-year-old female patient presented to the emergency department today reporting increased fatigue and difficulty staying awake. Physical examination did reveal clear equal lung sounds though she was tachypneic. Abdomen soft and nontender. She is neurologically intact so is quite drowsy. Temperature is found to be 94.4F rectal, Des Hugger was applied. EKG was unremarkable. Labs are pending, chest x-ray pending. Care is handed over to my attending Dr. Abebe at 1630. (Yumiko Justice) I suspect that the patient's altered mental status is likely secondary to her renal failure and uremia, but given the patient's elevated transaminases, hepatic encephalopathy is certainly also a possibility. Patient's head CT imaging is negative. Patient's potassium level is elevated, and she was given potassium-lowering medications in the ED. Patient is currently being dialyzed as well. Case was discussed with the patient's primary care provider service, and Dr. Mott requested transfer to a tertiary care facility with GI and transplant surgery coverage. Patient was accepted for ambulance transfer to [facility]. (Rene Abebe) - Lab Data Lab Results 02/24/21 02/24/21 02/24/21 Range/Units 15:54 16:02 16:02 WBC 12.8 H (3.8-10.6) k/uL RBC 2.67 L (3.80-5.40) m/uL Hgb 9.1 L (11.4-16.0) gm/dL Hct 29.4 L (34.0-46.0) % MCV 110.4 H (80.0-100.0) fL MCH 34.3 (25.0-35.0) pg MCHC 31.1 (31.0-37.0) g/dL RDW 14.5 (11.5-15.5) % Plt Count 129 L (150-450) k/uL MPV 8.4 Neutrophils % 95 % Lymphocytes % 1 % Monocytes % 3 % Eosinophils % 0 % Basophils % 0 % Neutrophils # 12.2 H (1.3-7.7) k/uL Lymphocytes # 0.2 L (1.0-4.8) k/uL Monocytes # 0.3 (0-1.0) k/uL Eosinophils # 0.0 (0-0.7) k/uL Basophils # 0.0 (0-0.2) k/uL Manual Slide Review Performed Polychromasia Present Hypochromasia Moderate Poikilocytosis (manual Present Macrocytosis Marked A PT 16.1 H (9.0-12.0) sec INR 1.6 H (<1.2) APTT 27.0 (22.0-30.0) sec Sodium (137-145) mmol/L Potassium (3.5-5.1) mmol/L Chloride (98-107) mmol/L Carbon Dioxide (22-30) mmol/L Anion Gap mmol/L BUN (7-17) mg/dL Creatinine (0.52-1.04) mg/dL Est GFR (CKD-EPI)AfAm (>60 ml/min/1.73 sqM) Est GFR (CKD-EPI)NonAf (>60 ml/min/1.73 sqM) Glucose (74-99) mg/dL POC Glucose (mg/dL) (75-99) mg/dL POC Glu Top Coater ID Lactic Ac Sepsis Rflx Plasma Lactic Acid Bhupinder (0.7-2.0) mmol/L Calcium (8.4-10.2) mg/dL Total Bilirubin (0.2-1.3) mg/dL AST (14-36) U/L ALT (4-34) U/L Alkaline Phosphatase (38-126) U/L Ammonia (<30) umol/L Total Protein (6.3-8.2) g/dL Albumin (3.5-5.0) g/dL Lipase (23-300) U/L Acetaminophen ug/mL Serum Alcohol mg/dL Coronavirus (PCR) Not Detected (Not Detectd) Hepatitis A IgM Ab (Nonreactive) Hep Bs Antigen (Nonreactive) Hep B Core IgM Ab (Nonreactive) Hep C IgG Ab (Nonreactive) 02/24/21 02/24/21 02/24/21 Range/Units 16:02 16:02 16:57 WBC (3.8-10.6) k/uL RBC (3.80-5.40) m/uL Hgb (11.4-16.0) gm/dL Hct (34.0-46.0) % MCV (80.0-100.0) fL MCH (25.0-35.0) pg MCHC (31.0-37.0) g/dL RDW (11.5-15.5) % Plt Count (150-450) k/uL MPV Neutrophils % % Lymphocytes % % Monocytes % % Eosinophils % % Basophils % % Neutrophils # (1.3-7.7) k/uL Lymphocytes # (1.0-4.8) k/uL Monocytes # (0-1.0) k/uL Eosinophils # (0-0.7) k/uL Basophils # (0-0.2) k/uL Manual Slide Review Polychromasia Hypochromasia Poikilocytosis (manual Macrocytosis PT (9.0-12.0) sec INR (<1.2) APTT (22.0-30.0) sec Sodium 139 (137-145) mmol/L Potassium 7.3 H* (3.5-5.1) mmol/L Chloride 100 (98-107) mmol/L Carbon Dioxide 13 L (22-30) mmol/L Anion Gap 26 mmol/L BUN 99 H (7-17) mg/dL Creatinine 8.74 H* (0.52-1.04) mg/dL Est GFR (CKD-EPI)AfAm 6 (>60 ml/min/1.73 sqM) Est GFR (CKD-EPI)NonAf 5 (>60 ml/min/1.73 sqM) Glucose 41 L* (74-99) mg/dL POC Glucose (mg/dL) (75-99) mg/dL POC Glu Top Coater ID Lactic Ac Sepsis Rflx Y Plasma Lactic Acid Bhupinder 8.3 H* (0.7-2.0) mmol/L Calcium 10.0 (8.4-10.2) mg/dL Total Bilirubin 1.9 H (0.2-1.3) mg/dL AST 1483 H (14-36) U/L ALT 1047 H (4-34) U/L Alkaline Phosphatase 106 (38-126) U/L Ammonia (<30) umol/L Total Protein 7.2 (6.3-8.2) g/dL Albumin 4.2 (3.5-5.0) g/dL Lipase 74 (23-300) U/L Acetaminophen <10.0 ug/mL Serum Alcohol mg/dL Coronavirus (PCR) (Not Detectd) Hepatitis A IgM Ab (Nonreactive) Hep Bs Antigen (Nonreactive) Hep B Core IgM Ab (Nonreactive) Hep C IgG Ab (Nonreactive) 1202/24/21 02/24/21 Range/Units 16:58 17:55 17:55 WBC (3.8-10.6) k/uL RBC (3.80-5.40) m/uL Hgb (11.4-16.0) gm/dL Hct (34.0-46.0) % MCV (80.0-100.0) fL MCH (25.0-35.0) pg MCHC (31.0-37.0) g/dL RDW (11.5-15.5) % Plt Count (150-450) k/uL MPV Neutrophils % % Lymphocytes % % Monocytes % % Eosinophils % % Basophils % % Neutrophils # (1.3-7.7) k/uL Lymphocytes # (1.0-4.8) k/uL Monocytes # (0-1.0) k/uL Eosinophils # (0-0.7) k/uL Basophils # (0-0.2) k/uL Manual Slide Review Polychromasia Hypochromasia Poikilocytosis (manual Macrocytosis PT (9.0-12.0) sec INR (<1.2) APTT (22.0-30.0) sec Sodium (137-145) mmol/L Potassium (3.5-5.1) mmol/L Chloride (98-107) mmol/L Carbon Dioxide (22-30) mmol/L Anion Gap mmol/L BUN (7-17) mg/dL Creatinine (0.52-1.04) mg/dL Est GFR (CKD-EPI)AfAm (>60 ml/min/1.73 sqM) Est GFR (CKD-EPI)NonAf (>60 ml/min/1.73 sqM) Glucose (74-99) mg/dL POC Glucose (mg/dL) 80 (75-99) mg/dL POC Glu Top Coater ID Mehrdad Carcamo Nicole Lactic Ac Sepsis Rflx Plasma Lactic Acid Bhupinder (0.7-2.0) mmol/L Calcium (8.4-10.2) mg/dL Total Bilirubin (0.2-1.3) mg/dL AST (14-36) U/L ALT (4-34) U/L Alkaline Phosphatase (38-126) U/L Ammonia <9 (<30) umol/L Total Protein (6.3-8.2) g/dL Albumin (3.5-5.0) g/dL Lipase (23-300) U/L Acetaminophen ug/mL Serum Alcohol <10 mg/dL Coronavirus (PCR) (Not Detectd) Hepatitis A IgM Ab (Nonreactive) Hep Bs Antigen (Nonreactive) Hep B Core IgM Ab (Nonreactive) Hep C IgG Ab (Nonreactive) 02/24/21 02/24/21 02/24/21 Range/Units 17:55 18:06 19:59 WBC (3.8-10.6) k/uL RBC (3.80-5.40) m/uL Hgb (11.4-16.0) gm/dL Hct (34.0-46.0) % MCV (80.0-100.0) fL MCH (25.0-35.0) pg MCHC (31.0-37.0) g/dL RDW (11.5-15.5) % Plt Count (150-450) k/uL MPV Neutrophils % % Lymphocytes % % Monocytes % % Eosinophils % % Basophils % % Neutrophils # (1.3-7.7) k/uL Lymphocytes # (1.0-4.8) k/uL Monocytes # (0-1.0) k/uL Eosinophils # (0-0.7) k/uL Basophils # (0-0.2) k/uL Manual Slide Review Polychromasia Hypochromasia Poikilocytosis (manual Macrocytosis PT (9.0-12.0) sec INR (<1.2) APTT (22.0-30.0) sec Sodium (137-145) mmol/L Potassium (3.5-5.1) mmol/L Chloride (98-107) mmol/L Carbon Dioxide (22-30) mmol/L Anion Gap mmol/L BUN (7-17) mg/dL Creatinine (0.52-1.04) mg/dL Est GFR (CKD-EPI)AfAm (>60 ml/min/1.73 sqM) Est GFR (CKD-EPI)NonAf (>60 ml/min/1.73 sqM) Glucose (74-99) mg/dL POC Glucose (mg/dL) 197 H (75-99) mg/dL POC Glu Top Coater ID Mehrdad Carcamo Nicole Lactic Ac Sepsis Rflx Plasma Lactic Acid Bhupinder 2.9 H* (0.7-2.0) mmol/L Calcium (8.4-10.2) mg/dL Total Bilirubin (0.2-1.3) mg/dL AST (14-36) U/L ALT (4-34) U/L Alkaline Phosphatase (38-126) U/L Ammonia (<30) umol/L Total Protein (6.3-8.2) g/dL Albumin (3.5-5.0) g/dL Lipase (23-300) U/L Acetaminophen ug/mL Serum Alcohol mg/dL Coronavirus (PCR) (Not Detectd) Hepatitis A IgM Ab Nonreactive (Nonreactive) Hep Bs Antigen Nonreactive (Nonreactive) Hep B Core IgM Ab Nonreactive (Nonreactive) Hep C IgG Ab Nonreactive (Nonreactive) 02/24/21 02/24/21 Range/Units 20:37 22:48 WBC (3.8-10.6) k/uL RBC (3.80-5.40) m/uL Hgb (11.4-16.0) gm/dL Hct (34.0-46.0) % MCV (80.0-100.0) fL MCH (25.0-35.0) pg MCHC (31.0-37.0) g/dL RDW (11.5-15.5) % Plt Count (150-450) k/uL MPV Neutrophils % % Lymphocytes % % Monocytes % % Eosinophils % % Basophils % % Neutrophils # (1.3-7.7) k/uL Lymphocytes # (1.0-4.8) k/uL Monocytes # (0-1.0) k/uL Eosinophils # (0-0.7) k/uL Basophils # (0-0.2) k/uL Manual Slide Review Polychromasia Hypochromasia Poikilocytosis (manual Macrocytosis PT (9.0-12.0) sec INR (<1.2) APTT (22.0-30.0) sec Sodium (137-145) mmol/L Potassium (3.5-5.1) mmol/L Chloride (98-107) mmol/L Carbon Dioxide (22-30) mmol/L Anion Gap mmol/L BUN (7-17) mg/dL Creatinine (0.52-1.04) mg/dL Est GFR (CKD-EPI)AfAm (>60 ml/min/1.73 sqM) Est GFR (CKD-EPI)NonAf (>60 ml/min/1.73 sqM) Glucose (74-99) mg/dL POC Glucose (mg/dL) (75-99) mg/dL POC Glu Top Coater ID Lactic Ac Sepsis Rflx Y Plasma Lactic Acid Bhupinder 1.3 (0.7-2.0) mmol/L Calcium (8.4-10.2) mg/dL Total Bilirubin (0.2-1.3) mg/dL AST (14-36) U/L ALT (4-34) U/L Alkaline Phosphatase (38-126) U/L Ammonia (<30) umol/L Total Protein (6.3-8.2) g/dL Albumin (3.5-5.0) g/dL Lipase (23-300) U/L Acetaminophen ug/mL Serum Alcohol mg/dL Coronavirus (PCR) (Not Detectd) Hepatitis A IgM Ab (Nonreactive) Hep Bs Antigen (Nonreactive) Hep B Core IgM Ab (Nonreactive) Hep C IgG Ab (Nonreactive) - Radiology Data Noncontrast head CT: Negative unenhanced head CT scan. Gallbladder ultrasound: No gallstones or dilated ducts. Right pleural effusion noted. No discrete liver mass. (Rene Abebe) Critical Care Time Critical Care Time: Yes Total Critical Care Time: 70 <Rene Abebe - Last Filed: 02/25/21 01:05> Disposition <Yumiko Justice - Last Filed: 02/24/21 16:28> Is patient prescribed a controlled substance at d/c from ED?: No Time of Disposition: 01:05 - Out of Hospital Transfer - Req. Specs Out of Hospital Transfer - Requested Specifics: Other Non-Acute <Rene Abebe - Last Filed: 02/25/21 01:05> Clinical Impression: Hyperkalemia, Chronic renal failure, Altered mental status, Hypoglycemia, Hepatitis, Hypothermia Disposition: OTHER INSTITUTION NOT DEFINED Condition: Stable Referrals: Melina Freire MD [Primary Care Provider] - 1-2 days
[2021-02-24] MEDS: SODIUM CHLORIDE 0.9% 500 ML 500 ML IV SCH (16:16)
[2021-02-24 16:37] LABS: Basophils % (A) 0 %; Eosinophils % (A) 0 %; HCT 29.4 % (34.0-46.0); HGB 9.1 gm/dL (11.4-16.0); Hypochromasia Moderate; Lymphocytes # (A) 0.2 k/uL (1.0-4.8); Lymphocytes % (A) 1 %; MCH 34.3 pg (25.0-35.0); MCHC 31.1 g/dL (31.0-37.0); MCV 110.4 fL (80.0-100.0); Macrocytosis Marked; Mean Platelet Volume 8.4; Monocytes # (A) 0.3 k/uL (0-1.0); Monocytes % (A) 3 %; Neutrophils # (A) 12.2 k/uL (1.3-7.7); Neutrophils % (A) 95 %; Platelet Count 129 k/uL (150-450); RBC 2.67 m/uL (3.80-5.40); RDW 14.5 % (11.5-15.5); WBC 12.8 k/uL (3.8-10.6)
[2021-02-24 16:41] LABS: INR 1.6 (<1.2); Prothrombin Time 16.1 sec (9.0-12.0)
[2021-02-24 16:44] LABS: African American GFR (CKD) 6 (>60 ml/min/1.73 sqM); Albumin 4.2 g/dL (3.5-5.0); Alkaline Phosphatase 106 U/L (38-126); Anion Gap 26 mmol/L; Blood Urea Nitrogen 99 mg/dL (7-17); Carbon Dioxide 13 mmol/L (22-30); Chloride 100 mmol/L (98-107); Non-African American GFR(CKD) 5 (>60 ml/min/1.73 sqM); Sodium 139 mmol/L (137-145); Total Bilirubin 1.9 mg/dL (0.2-1.3); Total Protein 7.2 g/dL (6.3-8.2)
[2021-02-24 16:51] LABS: Glucose 41 mg/dL (74-99)
[2021-02-24 16:54] LABS: Potassium 7.3 mmol/L (3.5-5.1)
[2021-02-24 16:56] LABS: ALT 1047 U/L (4-34); AST 1483 U/L (14-36)
[2021-02-24 17:00] LABS: Glucose,Whole Blood 80 mg/dL (75-99)
[2021-02-24] MEDS ORDERED: DEXTROSE 50% SYRINGE 50 ML IVP STA ×2 (17:00)
[2021-02-24] MEDS ORDERED: SODIUM BICARB 8.4% 50 ML SYR (1 MEQ/ML) IV STA (17:01)
[2021-02-24] MEDS ORDERED: CALCIUM CHLORIDE 100 MG/ML 10 ML SYRINGE IVP STA (17:01)
[2021-02-24] MEDS ORDERED: INSULIN REGULAR 100 UNIT/ML VIAL (IV) IV STA (17:01)
[2021-02-24] MEDS ORDERED: CEFEPIME 2 GM in SODIUM CHLORIDE 0.9% 100 ML IVPB STA (17:02)
[2021-02-24] MEDS ORDERED: ALBUTEROL NEBULIZED 2.5 MG/3 ML INHALATION STA (17:07)
[2021-02-24 17:11] LABS: Poikilocytosis (M) Present; Polychromasia Present
[2021-02-24 18:08] LABS: Glucose,Whole Blood 197 mg/dL (75-99)
[2021-02-24 18:13] LABS: Acetaminophen <10.0 ug/mL; Lipase 74 U/L (23-300)
[2021-02-24] MEDS ORDERED: LORazepam 2 MG/ML INJ IV STA (19:19)
--- NOTE | 2021-02-24 19:35 | XR ---
EXAMINATION TYPE: XR chest 1V DATE OF EXAM: 02/24/2021 COMPARISON: 11/16/2020 HISTORY: Altered mental status TECHNIQUE: Single view FINDINGS: There is pulmonary vascular congestion. There is blunting of the costophrenic angles. There is left-sided central venous catheter with tip in the right atrium. There are chest leads. IMPRESSION: Congestive heart failure with pleural effusions. Pulmonary congestion and fluid slightly increased compared to last exam.
--- NOTE | 2021-02-24 19:37 | CT ---
EXAMINATION TYPE: CT brain wo con DATE OF EXAM: 02/24/2021 COMPARISON: None HISTORY: headaches CT DLP: 1052.4 mGycm Automated exposure control for dose reduction was used. Ventricles and sulci appear normal. There is no mass effect nor midline shift. There is no sign of in tracranial hemorrhage. The calvarium is intact. IMPRESSION: Negative unenhanced head CT scan.
[2021-02-24] MEDS ORDERED: metroNIDAZOLE-NS PMX 500 MG in SALINE 1 100ML.BAG IVPB STA (20:18)
[2021-02-24] MEDS ORDERED: LABETALOL 5 MG/ML VIAL MDV IVP STA (22:01)
[2021-02-24 22:40] LABS: Hepatitis A Antibody IgM Nonreactive (Nonreactive); Hepatitis B Core IgM Nonreactive (Nonreactive); Hepatitis B Surface Antigen Nonreactive (Nonreactive); Hepatitis C IgG Antibody Nonreactive (Nonreactive)
--- NOTE | 2021-02-24 22:48 | US ---
EXAMINATION TYPE: US gallbladder DATE OF EXAM: 02/24/2021 COMPARISON: NONE CLINICAL HISTORY: elevated LFTs. EC patient not responding to questions, RICKY EXAM MEASUREMENTS: Liver Length: 13.5 cm Gallbladder Wall: 0.2 cm CBD: 0.4 cm Right Kidney: 9.9 x 4.5 x 3.4 cm Limited US exam as patient is not alert and unable to hold breath for images. Pancreas: wnl Liver: no masses seen; fluid filled bowel or stomach noted inferior to left lobe Gallbladder: gallbladder length is at upper limits of normal; no stones or sludge is seen; wall is w nl Evidence for sonographic Sibley's sign: no CBD: wnl Right Kidney: abnormally thin renal cortex is noted Prominent main portal vein is measured as is greater than13.0mm. Right pleural effusion is also seen. IMPRESSION: No gallstones or dilated ducts. Right pleural effusion noted. No discrete liver mass.
[2021-02-25 00:34] VITALS: TEMP 97.3
[2021-02-25 01:50] VITALS: BP 129/96; PULSE 92; RESP 16
== END 2021-02-25 02:00 | disposition other institution (70) ==
LOC: EC 15:30
DX: T68.XXXA Hypothermia, initial encounter (principal); E87.5 Hyperkalemia; N17.9 Acute kidney failure, unspecified; R41.82 Altered mental status, unspecified; K75.89 Other specified inflammatory liver diseases; E16.2 Hypoglycemia, unspecified; I11.0 Hypertensive heart disease with heart failure; I50.9 Heart failure, unspecified; J44.9 Chronic obstructive pulmonary disease, unspecified; M79.7 Fibromyalgia; K21.9 Gastro-esophageal reflux disease without esophagitis; F41.9 Anxiety disorder, unspecified; Z88.0 Allergy status to penicillin; Z88.1 Allergy status to other antibiotic agents; Z88.2 Allergy status to sulfonamides; Z87.891 Personal history of nicotine dependence; Z20.822 Contact with and (suspected) exposure to COVID-19; X58.XXXA Exposure to other specified factors, initial encounter
CPT/HCPCS: 99291; 96365; 96367; 96375 ×4; 96361 ×2; 36415; 94640; 93005; 80053; 80074; 82140; 83605; 83690; 85025; 85610; 85730; 87040; 80143; 87635; 71045; 76705; 70450; G0480; J2060; J0692; 80320; 90935

== ENCOUNTER 2021-10-03 15:38 | Emergency (ER) | payer MEDICARE, OTHER ==
[~2021-10-03 15:38] MED LIST changes: +CALCIUM CHLORIDE 100 MG/ML 10 ML SYRINGE ONE; +DEXTROSE 50% SYRINGE 50 ML IVP ONE; +EPINEPHrine 10 ML SYRINGE (0.1 MG/ML) ONE; -LIDOCAINE 1% INJ 10MG/ML (20 ML MDV) ONE; +SODIUM BICARB 8.4% 50 ML SYR (1 MEQ/ML) ONE; -SODIUM CHLORIDE 0.9% 1,000 ML IV ONE; -diphenhydrAMINE 50 MG/ML 1 ML VIAL ONE; -methylPREDNISolone SOD SUCCI 125 MG/2 ML VIAL ONE
[2021-10-03 15:46] VITALS: BP 0/0; PULSE 0; RESP 0; TEMP 97.6
[2021-10-03 15:58] LABS: Glucose,Whole Blood 118 mg/dL (70-110)
--- NOTE | 2021-10-03 16:02 | ED ---
General Adult HPI - General Chief complaint: Cardiac Arrest/CPR Stated complaint: Cardiac arrest Time Seen by Provider: 10/03/21 15:59 Source: EMS, RN notes reviewed, old records reviewed Mode of arrival: EMS Limitations: altered mental status - History of Present Illness Initial comments: 51-year-old female presents in cardiac arrest. She was transported by EMS. Approximate prehospital time was 40 minutes. The patient had been last seen well 10 minutes prior to this. History obtained from the EMS indicated the patient is on hemodialysis and did not receive dialysis today. She was initially PEA arrest with an episode of either ventricular tachycardia or ventricular fibrillation. Upon arrival she is in asystole. No other history is available. She had been intubated by paramedics with 7.0 endotracheal tube. - Related Data Home Medications Medication Instructions Recorded Confirmed Folic Acid-Vit B Complex-Vit C 1 mg PO DAILY 12/06/19 02/24/21 [Nephrocaps] amLODIPine [Norvasc] 10 mg PO DAILY 12/06/19 02/24/21 Albuterol Inhaler [Ventolin Hfa 2 puff INHALATION RT-Q6H PRN 08/10/20 02/24/21 Inhaler] Cinacalcet HCl [Sensipar] 120 mg PO W/SUPPER 08/10/20 02/24/21 Amitriptyline HCl [Elavil] 10 mg PO HS 09/14/20 02/24/21 Fluticasone/Umeclidin/Vilanter 1 puff INHALATION RT-BID 09/14/20 02/24/21 [Trelegy Ellipta 100-62.5-25] Furosemide [Lasix] 80 mg PO BID 09/14/20 02/24/21 Isosorbide Dinitrate [Isordil] 10 mg PO TID 09/14/20 02/24/21 Lidocaine-Prilocaine Cream [Emla 1 applic TOPICAL DIRECTED PRN 09/14/20 02/24/21 Cream 2.5%/2.5%] Sevelamer [Renvela] 3,200 mg PO TID 09/14/20 02/24/21 carvediloL [Coreg] 12.5 mg PO BID 09/14/20 02/24/21 Auryxia 840 mg PO TID 11/15/20 02/24/21 Atorvastatin [Lipitor] 20 mg PO DAILY 02/24/21 02/24/21 Losartan [Cozaar] 50 mg PO BID 02/24/21 02/24/21 Sacubitril/Valsartan [Entresto 49 1 tab PO BID 02/24/21 02/24/21 mg-51 mg Tablet] hydrALAZINE HCL [Apresoline] 100 mg PO TID 02/24/21 02/24/21 rOPINIRole HCL [Requip] 0.25 mg PO TID 02/24/21 02/24/21 Allergies Allergy/AdvReac Type Severity Reaction Status Date / Time Iodinated Contrast Media Allergy Severe stopped Verified 02/24/21 19:51 breathing aspirin Allergy Swelling/hi Verified 02/24/21 19:51 ves Penicillins Allergy Dyspnea Verified 02/24/21 19:51 sulfamethoxazole Allergy Dyspnea Verified 02/24/21 19:51 [From Bactrim] trimethoprim [From Bactrim] Allergy Dyspnea Verified 02/24/21 19:51 Review of Systems ROS Statement: Those systems with pertinent positive or pertinent negative responses have been documented in the HPI. ROS Other: All systems not noted in ROS Statement are negative. Past Medical History Past Medical History: Asthma, Heart Failure, COPD, Dialysis, Fibromyalgia, GERD/Reflux, Hypertension, Renal Disease, Rheumatoid Arthritis (RA), Skin Disorder Additional Past Medical History / Comment(s): migraines, anemia, lupus, stage 5 renal failure, hemodialysis MOWEFR, vasculitis autoimmune disorder, glaucoma, hx ulcer, IBS, SOB with activity, restless leg, psoriasis History of Any Multi-Drug Resistant Organisms: None Reported Past Surgical History: Section Additional Past Surgical History / Comment(s): "port in chest"/removed, C/S x 3, cold knife conization, fistula left arm for hemodialysis, peritoneal dialysis catheter, PERITONEAL CATHETER REMOVED Past Anesthesia/Blood Transfusion Reactions: Family History of Problems w/ Anesthesia, Motion Sickness Additional Past Anesthesia/Blood Transfusion Reaction / Comment(s): slow to wake up after last procedure, mother PONV Past Psychological History: Anxiety Smoking Status: Former smoker Past Alcohol Use History: None Reported Past Drug Use History: None Reported - Past Family History Mother Family Medical History: Cancer Additional Family Medical History / Comment(s): breast/ bladder and lung CA Father Family Medical History: Cancer Additional Family Medical History / Comment(s): pancreatic cancer General Exam Limitations: no limitations General appearance: other ([place], cyanotic, no signs of life) Head exam: Present: atraumatic Eye exam: Present: other (5 mm bilaterally, nonreactive) ENT exam: Present: other (Endotracheal tube) Respiratory exam: Present: other (Bilateral breath sounds with BVM) Cardiovascular Exam: Present: other (No spontaneous heart sounds) GI/Abdominal exam: Absent: distended Extremities exam: Present: pedal edema (2+ pitting edema bilaterally) Neurological exam: Present: other (No gag reflex, no corneal reflex, no pupillary reflex) Skin exam: Present: cyanosis Course Vital Signs 10/03/21 10/03/21 15:42 15:47 Temperature 97.6 F Pulse Rate 0 L Pulse Rate [ 0 L Glass 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 Prehospital time about 40 minutes with a suspected downtime prior this of up to 10 minutes. Given the fact that the patient was reported to have missed hemodialysis and she was initially in the sinusoidal waveform on the monitor she was given multiple rounds of bicarbonate as well as calcium chloride in addition to epinephrine by ACLS protocol. There was no return of spontaneous circulation ultimately time of was called at 1555. The [facility] has been contacted. - Lab Data Lab Results 10/03/21 Range/Units 15:47 POC Glucose (mg/dL) 118 H (70-110) mg/dL POC Glu Glass Beveller ID My Campos Disposition Clinical Impression: Sudden cardiac Disposition: Condition: Undetermined Is patient prescribed a controlled substance at d/c from ED?: No Referrals: Melina Freire MD [Primary Care Provider] - 1-2 days Time of Disposition: 15:55 Preliminary Cause of : Cardiopulmonary arrest, suspect hyperkalemia
== END 2021-10-03 21:02 | disposition expired ==
LOC: EC 15:38
DX: I46.9 Cardiac arrest, cause unspecified (principal); J45.909 Unspecified asthma, uncomplicated; I10 Essential (primary) hypertension; K21.9 Gastro-esophageal reflux disease without esophagitis; Z79.83 Long term (current) use of bisphosphonates; Z87.891 Personal history of nicotine dependence; Z88.6 Allergy status to analgesic agent; Z88.0 Allergy status to penicillin; Z88.2 Allergy status to sulfonamides; Z91.041 Radiographic dye allergy status
CPT/HCPCS: 36415; 99285